=== PATIENT | female | born 1980 | race Caucasian/White ===

== ENCOUNTER 2016-06-03 13:57 | Emergency (ER) | payer BC, OTHER ==
[~2016-06-03] VITALS: Ht 160 cm; Wt 58.6 kg
[~2016-06-03 13:57] MED LIST: IBUP600T44 PO; PRENTAB26 PO
[2016-06-03 14:01] VITALS: TEMP 36.7; Ht 160 cm; Wt 58.6 kg
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
[2016-06-03] MEDS ORDERED: CIPROFLOXACIN 500 MG TAB PO STA (14:22)
[2016-06-03 14:25] LABS: PREG INTERNAL NEGATIVE QC NEG CLEAR BACKGROUND; PREG INTERNAL POSITIVE QC POS CONTROL LINE
[2016-06-03] MEDS ORDERED: CIPR-255 PO (14:27)
[2016-06-03 14:29] LABS: URINE APPEARANCE TURBID (CLEAR); URINE EPITHELIAL CELL AUTO >30 /lpf (0-5); URINE NITRITE POS (NEG); URINE PH 5.5 (4.5-7.5); URINE SPECIFIC GRAVITY 1.027 (1.000-1.030); UROBILINOGEN NEG (NEG)
[2016-06-03 14:30] LABS: MANUAL MICROSCOPIC REQUIRED? NO; REVIEW REQ? YES; URINE COLOR AMBER
[2016-06-03 14:31] LABS: URINE BILIRUBIN NEG (NEG)
[2016-06-03 14:41] LABS: URINE PATH CASTS 0-3 GRANULAR CASTS /lpf (0)
[2016-06-03 14:55] VITALS: BP 122/78; PULSE 72; O2SAT 97
--- NOTE | 2016-06-05 12:12 | Pharmacy Progress Note ---
ED Pharmacist Culture FollowUp Date of Service: Jun 05, 2016. Patient was sent home with a prescription for Ciprofloxacin 500mg PO BID x 10 days, which should cover the E coli growing from the patient's URINE culture. No action required.
== END 2016-06-03 14:56 | disposition home or self-care (01) ==
LOC: C.EDB 13:59
DX: N39.0 Urinary tract infection, site not specified (principal); R51 Headache; F17.210 Nicotine dependence, cigarettes, uncomplicated

== ENCOUNTER 2021-03-01 05:22 | Inpatient (IN) ==
[2021-03-01] MEDS ORDERED: KETOROLAC TROMETHAMINE 15 MG/ML VIAL IV STA (06:06)
[2021-03-01 06:19] LABS: Basophils # (auto) 0.01 K/uL (0-0.2); Basophils % (auto) 0.1 %; Eosinophils # (auto) 0.07 K/uL (0-0.5); Eosinophils % (auto) 0.4 %; Hematocrit (blood only) 43.1 % (37-47); Hemoglobin 14.7 g/dL (12.0-16.0); Immature Granulocytes # (auto) 0.07 K/uL (0.00-0.02); Immature Granulocytes % (auto) 0.4 %; Lymphocytes # (auto) 1.56 K/uL (1.2-3.4); Lymphocytes % (auto) 9.5 %; Mean Corpuscular Hemoglobin 32.8 pg (25-34); Mean Corpuscular Hgb Conc 34.1 g/dL (32-36); Mean Corpuscular Volume 96.2 fL (80-100); Mean Platelet Volume 9.9 fL (7.4-10.4); Monocytes # (auto) 0.78 K/uL (0.11-0.59); Monocytes % (auto) 4.7 %; Neutrophils # (auto) 13.97 K/uL (1.4-6.5); Neutrophils % (auto) 84.9 %; Platelet Count 363 K/uL (130-400); RDW Coefficient of Variation 14.3 % (11.5-14.5); RDW Standard Deviation 50.4 fL (36.4-46.3); Red Blood Count 4.48 M/uL (4.2-5.4); White Blood Count 16.46 K/uL (4.8-10.8)
[2021-03-01 06:38] LABS: Albumin Level 3.6 gm/dl (3.4-5.0); BUN Creatinine Ratio 16.8 (10-20); Calcium 8.9 mg/dl (8.5-10.1); Creatinine Clr Calc Pharmacy 107.3 ml/min; Est GFR (African American) 122.6 ml/min; Est GFR (Non-African American) 105.8 ml/min; Potassium 3.6 mmol/L (3.5-5.1)
[2021-03-01 06:46] LABS: Albumin Globulin Ratio 0.9 (0.9-2); Bilirubin,Total 0.5 mg/dl (0.2-1); Globulin 4.1 gm/dl (2.5-4.0); Total Protein 7.7 gm/dl (6.4-8.2)
[2021-03-01] MEDS ORDERED: ONDANSETRON INJ 2 MG/ML 2 ML VIAL IV STA (07:28)
[2021-03-01] MEDS ORDERED: MoRPHine SULFATE 4 MG/ML 1 ML CARP\\VIAL IV STA ×2 (07:28→09:48)
[2021-03-01] MEDS ORDERED: SODIUM CHLORIDE 0.9% 1000ML 1,000 ML IV ONE (07:28)
[2021-03-01] MEDS ORDERED: OPTIRAY 320 100ml IV ONE (08:21)
--- NOTE | 2021-03-01 08:37 | Emergency Department Note ---
History of Present Illness General Chief complaint: Abdominal Pain Stated complaint: CRAMPS,GOING INTO BACK SINCE YESTERDAY Time Seen by Provider: 03/01/21 06:49 History of Present Illness Maximum Pain Intensity: 6 40-year-old female presents to the ED with a chief complaint of abdominal pain. Her symptoms started at 4 AM this morning. She states that it feels like menstrual cramps in the upper abdomen. The patient states that she took some ibuprofen which helped a little. She also reported some back pain that started last night. It is in the low back. She has associated nausea and vomiting as well as decreased appetite. She does drink alcohol. She states that her last alcohol was yesterday. She drinks about 3 or 4 shots of liquor 4 times a week. Home Medications Medication Instructions Recorded Confirmed Type CIPROFLOXACIN HCL (CIPRO) 500 mg PO BID #20 tab 06/03/16 Rx Allergies Allergy/AdvReac Type Severity Reaction Status Date / Time pollen extracts Allergy Unknown SEASONAL-IT Verified 05/17/09 17:06 KATE Past Med/Surg History Social History Smoking Status: Current every day smoker Preferred Language: [place] Feels Safe at Home: Yes Review of Systems A total of 10 systems reviewed and were otherwise negative Physical Exam Vital Signs Vital Signs - 24 hr 03/01/21 05:26 03/01/21 07:05 03/01/21 08:00 Temperature 36.4 C L 36.6 C Temperature Source Temporal Artery Scan Oral Pulse Rate 84 Pulse Rate [Finger] 87 78 Pulse Rhythm [Finger] Regular Pulse Strength [Finger] Normal Respiratory Rate 18 20 20 Respiratory Effort / Characteristics Non-Labored Respiratory Depth Normal Normal Blood Pressure 140/79 Blood Pressure [Right Arm] 135/100 146/88 H Blood Pressure Mean 99 Blood Pressure Mean [Right Arm] 111 107 Blood Pressure Position [Right Arm] Sitting Sitting Pulse Oximetry 99 97 98 Oxygen Delivery Method Room Air Room Air Sepsis Recent Fever Within 48 Hours No Sepsis New/Unexplained Change in Mental Status N/A Sepsis Action Taken by Nursing No Action Required CONSTITUTIONAL/VITAL SIGNS: Reviewed / noted above. GENERAL: Non-toxic in appearance. INTEGUMENTARY: Warm, dry, and [place]. HEAD: Normocephalic. EYES: without scleral icterus or trauma. ENT/OROPHARYNX: clear and moist. LYMPHADENOPATHY/NECK: Is supple without lymphadenopathy or meningismus. RESPIRATORY: Clear to auscultation bilaterally. No increased work of breathing. CARDIOVASCULAR: Regular rate and rhythm. GI/ABDOMEN: Soft and tender in epigastric area. No organomegaly or pulsatile mass. EXTREMITIES: Warm and well perfused. BACK: No CVA tenderness. There is some tenderness to the musculature of the low back. NEUROLOGICAL: Intact without focal deficits. PSYCHIATRIC: normal affect. MUSCULOSKELETAL: Normally developed with good muscle tone. TRIAGE NURSING DOCUMENTATION REVIEWED. Course Administered Medications Discontinued Medications Sodium Chloride (Nss 1000ml) 1,000 mls @ 999 mls/hr IV .Q1H1M ONE Stop: 03/01/21 08:28 Last Admin: 03/01/21 08:06 Dose: 999 mls/hr Documented by: [id number] Ioversol (Optiray 320 100ml) 93 ml IV ONCE ONE Stop: 03/01/21 08:22 Last Admin: 03/01/21 08:21 Dose: 93 ml Documented by: [id number] Ketorolac Tromethamine (Ketorolac Tromethamine 15 Mg/Ml Vial) 10 mg IV NOW STA Stop: 03/01/21 06:07 Last Admin: 03/01/21 06:19 Dose: 10 mg Documented by: [id number] Morphine Sulfate (Morphine Sulfate 4 Mg/Ml 1 Ml Carp\Vial) 4 mg IV NOW STA Stop: 03/01/21 07:29 Last Admin: 03/01/21 08:05 Dose: 4 mg Documented by: [id number] Ondansetron HCl (Ondansetron Inj 2 Mg/Ml 2 Ml Vial) 4 mg IV NOW STA Stop: 03/01/21 07:29 Last Admin: 03/01/21 08:05 Dose: 4 mg Documented by: [id number] Medical Decision Making Differential Diagnosis Differential considered: pancreatitis, hepatitis, acute cholecystitis, AAA, UTI, pyelonephritis, kidney stones, appendicitis, diverticulitis, shingles, bowel obstruction, mesenteric ischemia, intussusception,hernia,, ovarian torsion , ruptured ovarian cyst,ectopic , . Medical Records Attestation: I reviewed the patient's medical records. Home Medications Current Medication List: was personally reviewed by me Laboratory Data Attestation: I reviewed the patient's lab results. Result diagrams: 03/01/21 05:59 03/01/21 05:59 Lab Results 03/01/21 03/01/21 Range/Units 05:59 05:59 WBC 16.46 H (4.8-10.8) K/uL RBC 4.48 (4.2-5.4) M/uL Hgb 14.7 (12.0-16.0) g/dL Hct 43.1 (37-47) % MCV 96.2 (80-100) fL MCH 32.8 (25-34) pg MCHC 34.1 (32-36) g/dL RDW Std Deviation 50.4 H (36.4-46.3) fL RDW Coeff of [place] 14.3 (11.5-14.5) % Plt Count 363 (130-400) K/uL MPV 9.9 (7.4-10.4) fL Immature Gran % (Auto) 0.4 % Neut % (Auto) 84.9 % Lymph % (Auto) 9.5 % [place] % (Auto) 4.7 % Eos % (Auto) 0.4 % Baso % (Auto) 0.1 % Neut # (Auto) 13.97 H (1.4-6.5) K/uL Lymph # (Auto) 1.56 (1.2-3.4) K/uL [place] # (Auto) 0.78 H (0.11-0.59) K/uL Eos # (Auto) 0.07 (0-0.5) K/uL Baso # (Auto) 0.01 (0-0.2) K/uL Immature Gran # (Auto) 0.07 H (0.00-0.02) K/uL Sodium 135 L (136-145) mmol/L Potassium 3.6 (3.5-5.1) mmol/L Chloride 104 (98-107) mmol/L Carbon Dioxide 23 (21-32) mmol/L Anion Gap 8.0 (3-11) BUN 12 (7-18) mg/dl Creatinine 0.71 (0.6-1.2) mg/dl Est Cr Clr Drug Dosing 107.3 ml/min Est GFR ( Amer) 122.6 ml/min Est GFR (Non-Af Amer) 105.8 ml/min BUN/Creatinine Ratio 16.8 (10-20) Glucose 144 H (70-99) mg/dl Calcium 8.9 (8.5-10.1) mg/dl Total Bilirubin 0.5 (0.2-1) mg/dl AST 29 (15-37) U/L ALT 69 (12-78) U/L Alkaline Phosphatase 161 H (45-117) U/L Total Protein 7.7 (6.4-8.2) gm/dl Albumin 3.6 (3.4-5.0) gm/dl Globulin 4.1 H (2.5-4.0) gm/dl Albumin/Globulin Ratio 0.9 (0.9-2) Lipase 6177 H (73-393) U/L Imaging Data Radiologist's Impression: Abdomen/Pelvis CT 03/01/21 07:11 CT SCAN OF THE ABDOMEN AND PELVIS WITH IV CONTRAST CLINICAL HISTORY: Generalized abdominal pain. Elevated lipase. COMPARISON STUDY: No priors. TECHNIQUE: Following the IV administration of 93 cc of Optiray 320, CT scan of the abdomen and pelvis is performed from the lung bases to the proximal femora. Images are reviewed in the axial, sagittal, and coronal planes. IV contrast was administered without complication. A dose lowering technique was utilized adhering to the principles of ALARA. CT DOSE: 621.21 mGy.cm FINDINGS: Lung bases: The heart is normal in size and without pericardial effusion. The lung bases are clear noting dependent atelectasis. Liver: The contrast-enhanced liver is enlarged, measuring 23.7 cm in length. The liver demonstrates diffusely diminished attenuation consistent with hepatic steatosis. There is no intrahepatic biliary ductal dilatation. The hepatic veins and portal veins are patent. Gallbladder: Unremarkable. Spleen: Normal in size and attenuation. Pancreas: The pancreas is enlarged and edematous, with significant peripan creatic inflammation and fluid. Findings are consistent with acute pancreatitis. The pancreatic duct is normal in caliber. The gland enhances throughout. There is a 1.8 x 1.3 cm fluid collection adjacent the pancreatic head seen on image #161. The splenic vein is patent.. Adrenal glands: Unremarkable. Kidneys: The contrast enhanced kidneys are normal in size and without hydronephrosis. The kidneys enhance symmetrically. Abdominal vasculature: The abdominal aorta is normal in course and caliber. Bowel: There is no bowel obstruction. There is wall thickening and edema of the duodenum with mucosal hyperemia. The cecum is located in the right upper quadrant. Imaged portions of the appendix are also unremarkable. Peritoneum: There is a band. Fluid, with fluid seen tracking inferiorly within the retroperitoneum. No intraperitoneal free air is identified. There is a large fat-containing umbilical hernia. Lymphadenopathy: Prominent peripancreatic lymph nodes measure up to 10 mm in short axis. These are likely reactive. Pelvic viscera: The bladder is normal as visualized. The uterus is normal as imaged noting an intrauterine device in place. There are bilateral ovarian follicles. A dominant follicle in the left ovary measures up to 2.6 cm. A small one of free fluid is seen in the cul-de-sac. There is fluid within a left inguinal hernia. Skeletal structures: No lytic or blastic lesions are seen. IMPRESSION: 1. Findings are consistent with severe acute pancreatitis as above. 2. The gland enhances throughout. 3. There is a 1.7 cm fluid collection adjacent the pancreatic head, likely representing a pseudocyst. 4. Wall thickening and edema of the duodenum is likely related to adjacent pancreatitis. 5. Hepatomegaly and hepatic steatosis. 6. A small volume of free fluid in the pelvis is nonspecific. 7. Additional findings as above. ACT 112: Negative or not required by law. Electronically signed by: Twin Oglesby M.D. 03/01/2021 8:50 AM MDM Narrative 40-year-old female with upper abdominal pain in the setting of recent alcohol consumption as well as regular alcohol consumption. Associated nausea and vomiting. She does have some epigastric abdominal pain. She does have some muscular lower back pain as well. Her vital signs are stable. White blood cell count is elevated 16.4. Lipase is 6177. Metabolic panel was unremarkable. CT scan of the abdomen pelvis is consistent with a severe acute pancreatitis. The patient was given IV fluids, IV morphine IV Zofran. She was given some IV Toradol as well. She will be seen by the hospitalist for further inpatient evaluation and care. Impression & Plan Pancreatitis Discharge Plan Visit Data Chief Complaint: Abdominal Pain Stated Complaint: CRAMPS,GOING INTO BACK SINCE YESTERDAY ED Provider: Ean Dawson Discharge Problem: Pancreatitis Patient Disposition: Being Evaluated by Hospitalist Forms Stand Alone Forms: [employer] [facility] [place] [employer] Prescriptions Prescriptions: No Action CIPROFLOXACIN HCL (CIPRO) 500 MG tablet 500 mg PO BID Qty: 20 RF: 0 Referrals Referrals: PCP,NO [Primary Care Provider] - Discharge Problem: Pancreatitis Qualifiers: Chronicity: acute Pancreatitis type: alcohol induced Acute pancreatitis complication: unspecified Qualified Code(s): K85.20 - Alcohol induced acute pancreatitis without necrosis or infection
--- NOTE | 2021-03-01 08:51 | CT Scan Report ---
CT SCAN OF THE ABDOMEN AND PELVIS WITH IV CONTRAST CLINICAL HISTORY: Generalized abdominal pain. Elevated lipase. COMPARISON STUDY: No priors. TECHNIQUE: Following the IV administration of 93 cc of Optiray 320, CT scan of the abdomen and pelvi s is performed from the lung bases to the proximal femora. Images are reviewed in the axial, sagittal , and coronal planes. IV contrast was administered without complication. A dose lowering technique wa s utilized adhering to the principles of ALARA. CT DOSE: 621.21 mGy.cm FINDINGS: Lung bases: The heart is normal in size and without pericardial effusion. The lung bases are clear no ting dependent atelectasis. Liver: The contrast-enhanced liver is enlarged, measuring 23.7 cm in length. The liver demonstrates d iffusely diminished attenuation consistent with hepatic steatosis. There is no intrahepatic biliary d uctal dilatation. The hepatic veins and portal veins are patent. Gallbladder: Unremarkable. Spleen: Normal in size and attenuation. Pancreas: The pancreas is enlarged and edematous, with significant peripancreatic inflammation and fl uid. Findings are consistent with acute pancreatitis. The pancreatic duct is normal in caliber. The g land enhances throughout. There is a 1.8 x 1.3 cm fluid collection adjacent the pancreatic head seen on image #161. The splenic vein is patent.. Adrenal glands: Unremarkable. Kidneys: The contrast enhanced kidneys are normal in size and without hydronephrosis. The kidneys enh ance symmetrically. Abdominal vasculature: The abdominal aorta is normal in course and caliber. Bowel: There is no bowel obstruction. There is wall thickening and edema of the duodenum with mucosal hyperemia. The cecum is located in the right upper quadrant. Imaged portions of the appendix are als o unremarkable. Peritoneum: There is a band. Fluid, with fluid seen tracking inferiorly within the retroperitoneum. No intraperitoneal free air is identified. There is a large fat-containing umbilical hernia. Lymphadenopathy: Prominent peripancreatic lymph nodes measure up to 10 mm in short axis. These are li thee reactive. Pelvic viscera: The bladder is normal as visualized. The uterus is normal as imaged noting an intraut erine device in place. There are bilateral ovarian follicles. A dominant follicle in the left ovary m easures up to 2.6 cm. A small one of free fluid is seen in the cul-de-sac. There is fluid within a le ft inguinal hernia. Skeletal structures: No lytic or blastic lesions are seen. IMPRESSION: 1. Findings are consistent with severe acute pancreatitis as above. 2. The gland enhances throughout. 3. There is a 1.7 cm fluid collection adjacent the pancreatic head, likely representing a pseudocyst. 4. Wall thickening and edema of the duodenum is likely related to adjacent pancreatitis. 5. Hepatomegaly and hepatic steatosis. 6. A small volume of free fluid in the pelvis is nonspecific. 7. Additional findings as above. ACT 112: Negative or not required by law. Electronically signed by: Twin Oglesby M.D. 03/01/2021 8:50 AM
--- NOTE | 2021-03-01 09:19 | Ultrasound Report ---
ULTRASOUND RIGHT UPPER QUADRANT ABDOMEN CLINICAL HISTORY: Elevated lipase. Pancreatitis. COMPARISON STUDY: Abdominal CT dated 03/01/2021. TECHNIQUE: Real-time, grayscale, and color flow sonography of the right upper quadrant of the abdomen was performed. Images are reviewed in the transverse and longitudinal planes. FINDINGS: Liver: The liver is enlarged and demonstrates heterogeneously increased echotexture consistent with h epatic steatosis. There is no intrahepatic biliary ductal dilatation. The main portal vein is patent. Gallbladder: The gallbladder is normal in appearance. No gallstones are identified. There is no gallb ladder wall thickening or pericholecystic fluid. A sonographic Mao's sign is reportedly absent. Th e common bile duct measures up to 0.4 cm in diameter. Pancreas: Visualized portions of the pancreatic head and body appear enlarged and heterogeneous. The splenic vein is patent. Right kidney: Survey images of the right kidney demonstrate normal size and echotexture. There is no hydronephrosis. Ascites: None. IMPRESSION: 1. The pancreas appears mildly enlarged and heterogeneous. This corresponds to findings of acute panc reatitis seen by CT. 2. No gallstones are identified. 3. Hepatomegaly and hepatic steatosis. ACT 112: Negative or not required by law. Electronically signed by: Twin Oglesby M.D. 03/01/2021 9:18 AM
--- NOTE | 2021-03-01 09:24 | Gastrointestinal Consultation ---
Date of Consultation March 01, 2021 Assessment & Plan (1) Pancreatitis: 40 year old female admitted w/ acute pancreatitis, concern for ETOH induced pancreatitis as she notes heavy ETOH use weekly, more over the holiday week. Lipase elevated, LFTs normal. imaging w/ severe acute pancreatitis and 1.7 cm fluid collection adjacent the pancreatic head NPO for bowel rest Ok for ice chips/sips LR 150-200mL/hr Antietmics PRN Pain control PRN Can hold on MRCP at this point in time as no biliary abnormality on ABD US or CT If any change in LFTs, please arrange MRCP ETOH cessation was recommended OP EUS was discussed Thank you for allowing us to participate in the care of this patient. Please call with any acute changes, questions or concerns. Please see addendum below with additional recommendation from my supervising physician. Supervising Physician Co-Signing Physician Notes Late entry: Patient was seen and examined on 03/01 with YOLANDA Gonzalez whose note reflects our findings and plan. ETOH pancreatitis. Continue with bowel rest, IVF, anti-emetics and pain meds. History of Present Illness Reason for Consultation: acute panc Requesting Physician: felipa Attending Physician: felipa History of Present Illness 40 year old female without PMH admitted w/ abd pain, imaging consistent for pancreatitis. Notes abrupt onset of symptoms Sunday AM. upper abd pain, severe, cramping. Associated with nausea/vomiting. Radiates to her back. No change in bowel habits. Sought ED as pain worsened this AM. On arrival, had bout of emesis, flecks of bright red blood. TB 0.5 AST 29 ALT 69 ALKP 161 Lipase 6177 ETOH 3-5 shots of liquor 3-5 times weekly More ETOH over holidays No new medications Denies marijuana or illicit street drugs ABD US 2020: The pancreas appears mildly enlarged and heterogeneous. This corresponds to findings of acute pancreatitis seen by CT. No gallstones are identified. Hepatomegaly and hepatic steatosis. CTAP 2020: Findings are consistent with severe acute pancreatitis as above.The gland enhances throughout. There is a 1.7 cm fluid collection adjacent the pancreatic head, likely representing a pseudocyst. Wall thickening and edema of the duodenum is likely related to adjacent pancreatitis.Hepatomegaly and hepatic steatosis. A small volume of free fluid in the pelvis is nonspecific. Allergies Allergy/AdvReac Type Severity Reaction Status Date / Time pollen extracts Allergy Unknown SEASONAL-IT Verified 03/01/21 09:21 KATE Home Medications Medication Instructions Recorded Confirmed Type No Known Home Medications 03/01/21 03/01/21 History Patient History Medical History (Updated 03/01/21 @ 10:41 by Silva Massey PA-C) Alcohol dependence Tobacco abuse Surgical History (Updated 03/01/21 @ 10:38 by Silva Massey PA-C) History of dental surgery Family History (Updated 03/01/21 @ 10:38 by Silva Massey PA-C) Father Hypertension Mother Rheumatoid arthritis Social History (Updated 03/01/21 @ 10:39 by Silva Massey PA-C) Smoking Status: Current every day smoker Tobacco Type: Cigarettes packs per day: 1; Years Smoked: 20; Hx Alcohol Use: Yes Alcohol type: hard liquor Alcohol type Comment: 4-5 shots; 4-5 x/wk Alcohol Intake Frequency: 4 or More x per/Week Hx Substance Use: Yes Last Used Substance Other:: "years ago" Preferred Language: Albanian Communication Ability: Effective Geological Sample Tester Required: No Beliefs That Will Affect Care: None marital status: Current Living Situation: Spouse Feels Safe at Home: Yes Assistive Devices: None Review of Systems Review of Systems: All systems reviewed & are unremarkable except as noted in HPI & below Physical Exam Constitutional: WD/WN, vitals as above Neck: trachea midline, no thyromegaly Respiratory: normal respiratory effort; no respiratory distress, no retractions and does not use accessory muscles Cardiovascular: Rate/Rhythm: regular rate and regular rhythm Gastrointestinal (Abdomen): normal bowel sounds, soft, nontender, no hepatosplenomegaly Skin: no rashes, warm and dry Results & Data ([facility]) Vital Signs (Past 12 Hours) Vital Signs Temp Pulse Pulse Resp BP BP Pulse Ox 03/01/21 08:00 78 20 146/88 H 98 03/01/21 07:05 36.6 C 87 20 135/100 97 03/01/21 05:26 36.4 C L 84 18 140/79 99 Laboratory Results 03/01/21 03/01/21 03/01/21 Range/Units 09:38 05:59 05:59 WBC 16.46 H (4.8-10.8) K/uL RBC 4.48 (4.2-5.4) M/uL Hgb 14.7 (12.0-16.0) g/dL Hct 43.1 (37-47) % MCV 96.2 (80-100) fL MCH 32.8 (25-34) pg MCHC 34.1 (32-36) g/dL RDW Std Deviation 50.4 H (36.4-46.3) fL RDW Coeff of [place] 14.3 (11.5-14.5) % Plt Count 363 (130-400) K/uL MPV 9.9 (7.4-10.4) fL Immature Gran % (Auto) 0.4 % Neut % (Auto) 84.9 % Lymph % (Auto) 9.5 % [place] % (Auto) 4.7 % Eos % (Auto) 0.4 % Baso % (Auto) 0.1 % Neut # (Auto) 13.97 H (1.4-6.5) K/uL Lymph # (Auto) 1.56 (1.2-3.4) K/uL [place] # (Auto) 0.78 H (0.11-0.59) K/uL Eos # (Auto) 0.07 (0-0.5) K/uL Baso # (Auto) 0.01 (0-0.2) K/uL Immature Gran # (Auto) 0.07 H (0.00-0.02) K/uL Sodium 135 L (136-145) mmol/L Potassium 3.6 (3.5-5.1) mmol/L Chloride 104 (98-107) mmol/L Carbon Dioxide 23 (21-32) mmol/L Anion Gap 8.0 (3-11) BUN 12 (7-18) mg/dl Creatinine 0.71 (0.6-1.2) mg/dl Est Cr Clr Drug Dosing 107.3 ml/min Est GFR ( Amer) 122.6 ml/min Est GFR (Non-Af Amer) 105.8 ml/min BUN/Creatinine Ratio 16.8 (10-20) Glucose 144 H (70-99) mg/dl Calcium 8.9 (8.5-10.1) mg/dl Total Bilirubin 0.5 (0.2-1) mg/dl AST 29 (15-37) U/L ALT 69 (12-78) U/L Alkaline Phosphatase 161 H (45-117) U/L Total Protein 7.7 (6.4-8.2) gm/dl Albumin 3.6 (3.4-5.0) gm/dl Globulin 4.1 H (2.5-4.0) gm/dl Albumin/Globulin Ratio 0.9 (0.9-2) Lipase 6177 H (73-393) U/L SARS-CoV-2, RNA, NAAT Pending (1) Pancreatitis Acute pancreatitis complication: unspecified Chronicity: acute Pancreatitis type: alcohol induced Qualified Code(s): K85.20 - Alcohol induced acute pancreatitis without necrosis or infection
[2021-03-01] MEDS ORDERED: LACTATED RINGER'S 1,000 ML IV SCH (09:30)
--- NOTE | 2021-03-01 10:34 | History & Physical Report ---
Date of Service March 01, 2021 Assessment & Plan (1) Acute pancreatitis: (2) Tobacco abuse: (3) Alcohol dependence: Plan: This is a 40-year-old female who has past medical history of known tobacco abuse and alcohol use who presents to ED secondary to abdominal pain x1 day. CT a/p: IMPRESSION:1. Findings are consistent with severe acute pancreatitis as above.2. The gland enhances throughout.3. There is a 1.7 cm fluid collection adjacent the pancreatic head, likely representing a pseudocyst.4. Wall thickening and edema of the duodenum is likely related to adjacent pancreatitis.5. Hepatomegaly and hepatic steatosis.6. A small volume of free flu id in the pelvis is nonspecific.7. Additional findings as above. GB US:The pancreas appears mildly enlarged and heterogeneous. This corresponds to findings of acute pancreatitis seen by CT.2. No gallstones are identified.3. Hepatomegaly and hepatic steatosis. Acute pancreatitis Admit to medical Consult gastroenterology-appreciate their recommendations, discussed at bedside with YOLANDA Camilo N.p.o., christian for sips and chips LR at 200 cc/h pain control anti emetics follow LFT, Lipase lipid panel in a.m. Tobacco abuse recommend cessation nicotine patch ordered ETOH dependence encourage cessation awss protocol, prn ativan Elevated fasting glucose obtain a1c in a.m. DVT ppx: Lovenox Dispo:med/surg PCP:None, will need to establish at discharge FULL CODE Pt was seen and examined in collaboration with Dr. Fraser, please see addendum History of Present Illness Chief Complaint: Abd pain x 1 day. Primary Care Provider: NO PCP This is a 40-year-old female who has past medical history of known tobacco abuse and alcohol use who presents to ED secondary to abdominal pain x1 day. Her is at bedside. She developed abdominal pain yesterday morning at approximately 3 AM. She felt like her abdominal pain was related to menstrual cramping. She tried [id number] ibuprofen, Aleve and Midol with minimal relief. Her symptoms persisted. She describes her abdominal pain in the epigastric region with occasional radiation to back. She does not feel like it is similar to prior menstrual cramping; however, she does have IUD and therefore period Is irregular. Her abdominal pain is constant, wax and wane in severity, made worse with lying flat, improved with sitting up, has never experienced in the past and describes as a deep ache. She does have significant history of alcohol use. Her and her to approximately 4-5 shots daily. This occurs 3-5 times a week. They have been all for the past 5 days and therefore have done the shots 5 days in a row. Her last drink was yesterday. She admits to periods of abstinence without difficulty with withdrawal. She does admit to nausea and one episode of vomiting. felt that bright red blood was present in vomit. She also complains of, "having a sinus infection." She complains of sinus congestion for the last several weeks. She has been taking oyrt-dul-mdendoh Lyly-Wacissa with minimal relief. She denies any fever, chills, sweats, lightheadedness, dizziness, chest pain, shortness of breath, dysuria, increased urgency frequency with urination, or hematochezia. She does complain of being more on the constipated side. Appetite is overall diminished. She does not follow with PCP. She denies any prior breast medical history including HTN, HLD, cancer or diabetes. She does not take any prescription medications. In ED patient remained hemodynamically stable. Lab work consistent with elevated lipase at 6177, WBC 16.4 6K, sodium 135, glucose 1.4. SARS-CoV-[address] a/p: IMPRESSION:1. Findings are consistent with severe acute pancreatitis as above.2. The gland enhances throughout.3. There is a 1.7 cm fluid collection ad jacent the pancreatic head, likely representing a pseudocyst.4. Wall thickening and edema of the duodenum is likely related to adjacent pancreatitis.5. Hepatomegaly and hepatic steatosis.6. A small volume of free fluid in the pelvis is nonspecific.7. Additional findings as above. GB US:The pancreas appears mildly enlarged and heterogeneous. This corresponds to findings of acute pancreatitis seen by CT.2. No gallstones are identified.3. Hepatomegaly and hepatic steatosis. In ED she received 1L of IVF, IV morphine and zofran. Allergies Allergy/AdvReac Type Severity Reaction Status Date / Time pollen extracts Allergy Unknown SEASONAL-IT Verified 03/01/21 09:21 KATE Home Medications Medication Instructions Recorded Confirmed Type No Known Home Medications 03/01/21 03/01/21 History Past Med/Surg History Medical History (Updated 03/01/21 @ 10:41 by Silva Massey PA-C) Alcohol dependence Tobacco abuse Surgical History (Updated 03/01/21 @ 10:38 by Silva Massey PA-C) History of dental surgery Family History (Updated 03/01/21 @ 10:38 by Silva Massey PA-C) Father Hypertension Mother Rheumatoid arthritis Social History (Updated 03/01/21 @ 10:39 by Silva Massey PA-C) Smoking Status: Current every day smoker Tobacco Type: Cigarettes packs per day: 1; Years Smoked: 20; Hx Alcohol Use: Yes Alcohol type: hard liquor Alcohol type Comment: 4-5 shots; 4-5 x/wk Alcohol Intake Frequency: 4 or More x per/Week Hx Substance Use: Yes Last Used Substance Other:: "years ago" Preferred Language: Sami Communication Ability: Effective Iron Erector Required: No Beliefs That Will Affect Care: None marital status: Current Living Situation: Spouse Feels Safe at Home: Yes Review of Systems Review of Systems: All systems reviewed & are unremarkable except as noted in HPI & below Physical Exam Physical Exam: Constitutional: WD/WN, acutely ill-appearing, vitals as above, NAD, sitting up in bed, pleasant, conversing easily Head: Normocephalic, Atraumatic Eyes: PERRL, conjunctivae normal, anicteric sclerae ENMT: external ear and nose normal, oropharynx normal Neck: trachea midline, no thyromegaly normal visual inspection Respiratory: normal respiratory effort, lungs clear to auscultation, no wheeze, rales, rhonchi. Normal insp/exp effort, no accessory muscle use Cardiovascular: RRR, no murmur, no edema Vessels: no JVD or carotid bruit Chest: normal inspection of chest Abdomen: normal bowel sounds, soft, tender to palpation in epigastrium, no hepatosplenomegaly Musculoskeletal: no cyanosis or clubbing, extremities motor strength 5/5 Skin: no rashes, warm and dry normal turgor Neurologic: PERRL, EOMI, accommodation nl, no face palsy, no dysarthria CN's II-XI intact bilaterally and moves all extremities Psychiatric: A+Ox3, euthymic affect Lymphatic: no cervical or axillary lymphadenopathy : deferred Results & Data Results & Data ([facility]) Vital Signs (Past 12 Hours) Vital Signs Temp Pulse Pulse Resp BP BP Pulse Ox 03/01/21 08:00 78 20 146/88 H 98 03/01/21 07:05 36.6 C 87 20 135/100 97 03/01/21 05:26 36.4 C L 84 18 140/79 99 Diagnostic Findings Abdomen/Pelvis CT 03/01/21 07:11 CT SCAN OF THE ABDOMEN AND PELVIS WITH IV CONTRAST CLINICAL HISTORY: Generalized abdominal pain. Elevated lipase. COMPARISON STUDY: No priors. TECHNIQUE: Following the IV administration of 93 cc of Optiray 320, CT scan of the abdomen and pelvis is performed from the lung bases to the proximal femora. Images are reviewed in the axial, sagittal, and coronal planes. IV contrast was administered without complication. A dose lowering technique was utilized adhering to the principles of ALARA. CT DOSE: 621.21 mGy.cm FINDINGS: Lung bases: The heart is normal in size and without pericardial effusion. The lung bases are clear noting dependent atelectasis. Liver: The contrast-enhanced liver is enlarged, measuring 23.7 cm in length. The liver demonstrates diffusely diminished attenuation consistent with hepatic steatosis. There is no intrahepatic biliary ductal dilatation. The hepatic veins and portal veins are patent. Gallbladder: Unremarkable. Spleen: Normal in size and attenuation. Pancreas: The pancreas is enlarged and edematous, with significant peripancreatic inflammation and fluid. Findings are consistent with acute pancreatitis. The pancreatic duct is normal in caliber. The gland enhances throughout. There is a 1.8 x 1.3 cm fluid collection adjacent the pancreatic head seen on image #161. The splenic vein is patent.. Adrenal glands: Unremarkable. Kidneys: The contrast enhanced kidneys are normal in size and without hydronephrosis. The kidneys enhance symmetrically. Abdominal vasculature: The abdominal aorta is normal in course and caliber. Bowel: There is no bowel obstruction. There is wall thickening and edema of the duodenum with mucosal hyperemia. The cecum is located in the right upper quadrant. Imaged portions of the appendix are also unremarkable. Peritoneum: There is a band. Fluid, with fluid seen tracking inferiorly within the retroperitoneum. No intraperitoneal free air is identified. There is a large fat-containing umbilical hernia. Lymphadenopathy: Prominent peripancreatic lymph nodes measure up to 10 mm in short axis. These are likely reactive. Pelvic viscera: The bladder is normal as visualized. The uterus is normal as imaged noting an intrauterine device in place. There are bilateral ovarian follicles. A dominant follicle in the left ovary measures up to 2.6 cm. A small one of free fluid is seen in the cul-de-sac. There is fluid within a left inguinal hernia. Skeletal structures: No lytic or blastic lesions are seen. IMPRESSION: 1. Findings are consistent with severe acute pancreatitis as above. 2. The gland enhances throughout. 3. There is a 1.7 cm fluid collection adjacent the pancreatic head, likely representing a pseudocyst. 4. Wall thickening and edema of the duodenum is likely related to adjacent pancreatitis. 5. Hepatomegaly and hepatic steatosis. 6. A small volume of free fluid in the pelvis is nonspecific. 7. Additional findings as above. ACT 112: Negative or not required by law. Electronically signed by: Twin Oglesby M.D. 03/01/2021 8:50 AM Gallbladder Ultrasound 03/01/21 07:11 ULTRASOUND RIGHT UPPER QUADRANT ABDOMEN CLINICAL HISTORY: Elevated lipase. Pancreatitis. COMPARISON STUDY: Abdominal CT dated 03/01/2021. TECHNIQUE: Real-time, grayscale, and color flow sonography of the right upper quadrant of the abdomen was performed. Images are reviewed in the transverse and longitudinal planes. FINDINGS: Liver: The liver is enlarged and demonstrates heterogeneously increased echotexture consistent with hepatic steatosis. There is no intrahepatic biliary ductal dilatation. The main portal vein is patent. Gallbladder: The gallbladder is normal in appearance. No gallstones are identified. There is no gallbladder wall thickening or pericholecystic fluid. A sonographic Mao's sign is reportedly absent. The common bile duct measures up to 0.4 cm in diameter. Pancreas: Visualized portions of the pancreatic head and body appear enlarged and heterogeneous. The splenic vein is patent. Right kidney: Survey images of the right kidney demonstrate normal size and echotexture. There is no hydronephrosis. Ascites: None. IMPRESSION: 1. The pancreas appears mildly enlarged and heterogeneous. This corresponds to findings of acute pancreatitis seen by CT. 2. No gallstones are identified. 3. Hepatomegaly and hepatic steatosis. ACT 112: Negative or not required by law. Electronically signed by: Twin Oglesby M.D. 03/01/2021 9:18 AM Medications Administered Medication List Lactated Ringer's (Lr) 1,000 mls @ 200 mls/hr IV .Q5H NAOMIE Stop: 03/31/21 09:29 Last Admin: 03/01/21 09:32 Dose: 200 mls/hr Documented by: [id number] Discontinued Medications Sodium Chloride (Nss 1000ml) 1,000 mls @ 999 mls/hr IV .Q1H1M ONE Stop: 03/01/21 08:28 Last Admin: 03/01/21 08:06 Dose: 999 mls/hr Documented by: [id number] Ioversol (Optiray 320 100ml) 93 ml IV ONCE ONE Stop: 03/01/21 08:22 Last Admin: 03/01/21 08:21 Dose: 93 ml Documented by: [id number] Ketorolac Tromethamine (Ketorolac Tromethamine 15 Mg/Ml Vial) 10 mg IV NOW STA Stop: 03/01/21 06:07 Last Admin: 03/01/21 06:19 Dose: 10 mg Documented by: [id number] Morphine Sulfate (Morphine Sulfate 4 Mg/Ml 1 Ml Carp\\Vial) 4 mg IV NOW STA Stop: 03/01/21 07:29 Last Admin: 03/01/21 08:05 Dose: 4 mg Documented by: [id number] Morphine Sulfate (Morphine Sulfate 4 Mg/Ml 1 Ml Carp\\Vial) 4 mg IV NOW STA Stop: 03/01/21 09:49 Last Admin: 03/01/21 10:13 Dose: 4 mg Documented by: [id number] Ondansetron HCl (Ondansetron Inj 2 Mg/Ml 2 Ml Vial) 4 mg IV NOW STA Stop: 03/01/21 07:29 Last Admin: 03/01/21 08:05 Dose: 4 mg Documented by: [id number] COVID-19 Results Results COVID-19 Adm Lab Results: RBC 4.48 M/uL (4.2-5.4) 03/01/21 WBC 16.46 K/uL (4.8-10.8) H 03/01/21 Hgb 14.7 g/dL (12.0-16.0) 03/01/21 Hct 43.1 % (37-47) 03/01/21 Plt Count 363 K/uL (130-400) 03/01/21 Neutrophils (%) (Auto) 84.9 % 03/01/21 Lymphocytes (%) (Auto) 9.5 % 03/01/21 Monocytes # (Auto) 0.78 K/uL (0.11-0.59) H 03/01/21 Eosinophils # (Auto) 0.07 K/uL (0-0.5) 03/01/21 Immature Granulocyte % (Auto) 0.4 % 03/01/21 Neutrophils # (Auto) 13.97 K/uL (1.4-6.5) H 03/01/21 Lymphocytes # (Auto) 1.56 K/uL (1.2-3.4) 03/01/21 Monocytes # (Auto) 0.78 K/uL (0.11-0.59) H 03/01/21 Eosinophils # (Auto) 0.07 K/uL (0-0.5) 03/01/21 Basophils # (Auto) 0.01 K/uL (0-0.2) 03/01/21 Immature Granulocyte # (Auto) 0.07 K/uL (0.00-0.02) H 03/01/21 Na 135 mmol/L (136-145) L 03/01/21 K 3.6 mmol/L (3.5-5.1) 03/01/21 Cl 104 mmol/L (98-107) 03/01/21 CO2 23 mmol/L (21-32) 03/01/21 Anion Gap 8.0 (3-11) 03/01/21 BUN 12 mg/dl (7-18) 03/01/21 Creatinine 0.71 mg/dl (0.6-1.2) 03/01/21 BUN/Creatinine Ratio 16.8 (10-20) 03/01/21 Glucose Level 144 mg/dl (70-99) H 03/01/21 Ca 8.9 mg/dl (8.5-10.1) 03/01/21 Total Bilirubin 0.5 mg/dl (0.2-1) 03/01/21 AST/SGOT 29 U/L (15-37) 03/01/21 ALT/SGPT 69 U/L (12-78) 03/01/21 Alkaline Phosphatase 161 U/L (45-117) H 03/01/21 Total Protein 7.7 gm/dl (6.4-8.2) 03/01/21 Albumin 3.6 gm/dl (3.4-5.0) 03/01/21 Globulin 4.1 gm/dl (2.5-4.0) H 03/01/21 Albumin/Globulin Ratio 0.9 (0.9-2) 03/01/21 SARS-CoV-2, RNA, NAAT NEGATIVE (NEGATIVE) 03/01/21 Code Status & VTE Plan Code Status FULL CODE VTE Prophylaxis Plan VTE Prophylaxis will be ordered: Yes Supervising Physician Co-Signing Physician Notes History and physical exam performed by me as detailed by Silva Massey PA-C. History notable for 40-year-old with alcohol use who presents with abdominal pain for 1 day. Patient reported drinking shots about 3-5 times a week but has been binging over the holiday weekend. Described abdominal pain as menstrual crampy in nature and referred to the back. Physical exam notable for abdominal tenderness especially in the epigastrium. Labs notable for WBC of 16, sodium of 135, lipase of 6177, alkaline phosphatase of [address] shows severe acute pancreatitis with 1.7 cm fluid collection present in the pseudocyst, edema of adjacent duodenum, hepatomegaly and hepatic steatosis. Gallbladder ultrasound did not show any gallstones. Acute pancreatitis Likely related to alcohol abuse. N.p.o. for now Continue IV fluids Pain control Agree with other plans as detailed by Silva Massey PA-C
[2021-03-01] MEDS ORDERED: ACETAMINOPHEN 1,000 MG/100 ML VIAL IV STA (12:49)
[2021-03-01] MEDS ORDERED: ACETAMINOPHEN 1000 MG/100 ML IV IV ONE (12:51)
[2021-03-01] MEDS ORDERED: LORazepam 1 MG/2 ML VIAL IV PRN (13:31)
[2021-03-01] MEDS ORDERED: ACETAMINOPHEN 1,000 MG/100 ML VIAL IV PRN (13:31)
[2021-03-01] MEDS: LACTATED RINGER'S 1,000 ML IV SCH ×3 (14:34→23:33)
[2021-03-01] MEDS: MoRPHine SULFATE 4 MG/ML 1 ML CARP\\VIAL IV PRN ×3 (14:34→23:33)
[2021-03-01] MEDS: NICOTINE 21 MG/24 HR TDSY TD SCH (16:05)
[2021-03-01] MEDS: ONDANSETRON INJ 2 MG/ML 2 ML VIAL IV PRN (18:02)
[2021-03-01] MEDS: ENOXAPARIN INJ 40 MG/0.4 ML SYR SQ SCH (20:07)
[2021-03-01 20:22] LABS: Appearance Urine Clear (Clear); Bacteria Urine Automated 1+ (Negative); Bilirubin Urine Negative (Negative); Blood Urine 1+ (Negative); Color Urine Dark Yellow; Epithelial Cell Urine Auto >30 /lpf (0-5); Glucose Urine UA Trace (Negative); Ketones Urine Negative (Negative); Leukocyte Esterase Urine Negative (Negative); Nitrite Urine Negative (Negative); Protein Urine 2+ (Negative); Specific Gravity Urine 1.039 (1.000-1.030); Urobilinogen Urine Negative (Negative); pH Urine 5.5 (4.5-7.5)
[2021-03-01] MEDS ORDERED: PROMETHAZINE HCL 12.5 MG in SODIUM CHLORIDE 0.9% 50 ML IV STA (21:34)
[2021-03-01 22:58] LABS: Pregnancy Test, Urine Negative (Negative)
[2021-03-02] MEDS: ONDANSETRON INJ 2 MG/ML 2 ML VIAL IV PRN ×3 (04:05→20:51)
[2021-03-02] MEDS: LACTATED RINGER'S 1,000 ML IV SCH ×4 (04:12→21:48)
[2021-03-02] MEDS: MoRPHine SULFATE 4 MG/ML 1 ML CARP\\VIAL IV PRN ×4 (04:54→20:50)
[2021-03-02 06:34] LABS: Basophils # (auto) 0.01 K/uL (0-0.2); Basophils % (auto) 0.1 %; Eosinophils # (auto) 0.09 K/uL (0-0.5); Eosinophils % (auto) 0.5 %; Hemoglobin 14.4 g/dL (12.0-16.0); Immature Granulocytes # (auto) 0.04 K/uL (0.00-0.02); Immature Granulocytes % (auto) 0.2 %; Lymphocytes # (auto) 0.95 K/uL (1.2-3.4); Lymphocytes % (auto) 5.2 %; Mean Corpuscular Hemoglobin 32.6 pg (25-34); Mean Corpuscular Hgb Conc 33.5 g/dL (32-36); Mean Corpuscular Volume 97.3 fL (80-100); Mean Platelet Volume 10.2 fL (7.4-10.4); Monocytes # (auto) 0.47 K/uL (0.11-0.59); Monocytes % (auto) 2.6 %; Neutrophils # (auto) 16.87 K/uL (1.4-6.5); Neutrophils % (auto) 91.4 %; Platelet Count 315 K/uL (130-400); RDW Coefficient of Variation 14.4 % (11.5-14.5); RDW Standard Deviation 51.6 fL (36.4-46.3); Red Blood Count 4.42 M/uL (4.2-5.4); White Blood Count 18.43 K/uL (4.8-10.8)
[2021-03-02 07:25] LABS: Estimated Average Glucose 126 mg/dl
[2021-03-02 08:25] LABS: Albumin Globulin Ratio 0.6 (0.9-2); Albumin Level 2.4 gm/dl (3.4-5.0); BUN Creatinine Ratio 17.2 (10-20); Bilirubin,Total 0.7 mg/dl (0.2-1); Calcium 7.7 mg/dl (8.5-10.1); Creatinine Clr Calc Pharmacy 149.4 ml/min; Est GFR (African American) 138.4 ml/min; Est GFR (Non-African American) 119.4 ml/min; Globulin 3.9 gm/dl (2.5-4.0); Total Protein 6.3 gm/dl (6.4-8.2)
[2021-03-02] MEDS ORDERED: PROMETHAZINE HCL 25 MG TAB PO ONE (08:39)
--- NOTE | 2021-03-02 09:20 | Gastroenterology Progress Note ---
Date of Service March 02, 2021 Assessment & Plan (1) Pancreatitis: Plan: 40 year old female admitted w/ acute pancreatitis, concern for ETOH induced pancreatitis as she notes heavy ETOH use weekly, more over the holiday week. Lipase elevated, LFTs normal. imaging w/ severe acute pancreatitis and 1.7 cm fluid collection adjacent the pancreatic head Ok for ice chips/sips If pain continues to improve, consider clear liquids for dinner LR 150-200mL/hr Antietmics PRN Pain control PRN Can hold on MRCP at this point in time as no biliary abnormality on ABD US or CT If any change in LFTs, please arrange MRCP ETOH cessation was recommended OP EUS was discussed Thank you for allowing us to participate in the care of this patient. Please call with any acute changes, questions or concerns. Please see addendum below with additional recommendation from my supervising physician. Admission and Anticipated Discharge Date Admission Date: March 01, 2021 Supervising Physician Co-Signing Physician Notes I have seen and examined the patient with YOLANDA Gonzalez whose note reflects our findings and plan. Slowly improving. ETOH cessation stressed. Continue with IVF hydration, Sip of clears ok today. PRN antiemetics and pain meds. Abd exam is benign Subjective Pt was seen and evaluated, chart reviewed. symptoms somewhat improved from yesterday pain is less severe, requiring less analgesia No BM but passing gas Review of Systems Review of Systems: All systems reviewed & are unremarkable except as noted in HPI & below Physical Exam Constitutional: WD/WN, vitals as above Neck: trachea midline, no thyromegaly Respiratory: normal respiratory effort, lungs clear to auscultation Gastrointestinal (Abdomen): normal bowel sounds, soft, nontender, no hepatosplenomegaly Skin: no rashes, warm and dry Results & Data ([facility]) Vital Signs (Past 12 Hours) Vital Signs Temp Pulse Resp BP Pulse Ox 03/02/21 04:06 36.7 C 100 H 16 137/93 93 03/02/21 00:00 36.8 C 98 H 21 133/90 96 03/01/21 21:36 36.8 C 92 H 18 149/94 H 94 Laboratory Results 03/02/21 03/02/21 03/02/21 Range/Units 09:00 06:11 06:11 WBC (4.8-10.8) K/uL RBC (4.2-5.4) M/uL Hgb (12.0-16.0) g/dL Hct (37-47) % MCV (80-100) fL MCH (25-34) pg MCHC (32-36) g/dL RDW Std Deviation (36.4-46.3) fL RDW Coeff of Yamile (11.5-14.5) % Plt Count (130-400) K/uL MPV (7.4-10.4) fL Immature Gran % (Auto) % Neut % (Auto) % Lymph % (Auto) % Kemper % (Auto) % Eos % (Auto) % Baso % (Auto) % Neut # (Auto) (1.4-6.5) K/uL Lymph # (Auto) (1.2-3.4) K/uL Kemper # (Auto) (0.11-0.59) K/uL Eos # (Auto) (0-0.5) K/uL Baso # (Auto) (0-0.2) K/uL Immature Gran # (Auto) (0.00-0.02) K/uL Sodium 132 L (136-145) mmol/L Potassium Pending (3.5-5.1) mmol/L Chloride 102 (98-107) mmol/L Carbon Dioxide 24 (21-32) mmol/L Anion Gap 6.0 (3-11) BUN 9 (7-18) mg/dl Creatinine 0.51 L (0.6-1.2) mg/dl Est Cr Clr Drug Dosing 149.4 ml/min Est GFR ( Amer) 138.4 ml/min Est GFR (Non-Af Amer) 119.4 ml/min BUN/Creatinine Ratio 17.2 (10-20) Glucose 136 H (70-99) mg/dl Estimat Average Glucose 126 mg/dl Hemoglobin A1c 6.0 H (4.5-5.6) % Calcium 7.7 L (8.5-10.1) mg/dl Total Bilirubin 0.7 (0.2-1) mg/dl AST Pending (15-37) U/L ALT 39 (12-78) U/L Alkaline Phosphatase 127 H (45-117) U/L Total Protein 6.3 L (6.4-8.2) gm/dl Albumin 2.4 L (3.4-5.0) gm/dl Globulin 3.9 (2.5-4.0) gm/dl Albumin/Globulin Ratio 0.6 L (0.9-2) Triglycerides 317 H (0-150) mg/dl Cholesterol 157 (0-200) mg/dl LDL Cholesterol, Calc 77 mg/dl VLDL Cholesterol, Calc 63 mg/dl HDL Cholesterol 17 mg/dl Cholesterol/HDL Ratio 9 Lipase 4385 H (73-393) U/L Urine Color Urine Appearance (Clear) Urine pH (4.5-7.5) Ur Specific Custer (1.000-1.030) Urine Protein (Negative) Urine Glucose (UA) (Negative) Urine Ketones (Negative) Urine Blood (Negative) Urine Nitrite (Negative) Urine Bilirubin (Negative) Urine Urobilinogen (Negative) Ur Leukocyte Esterase (Negative) Urine WBC (Auto) (0-5) /hpf Urine RBC (Auto) (0-4) /hpf U Hyaline Cast (Auto) (0-5) /lpf U Epithel Cells (Auto) (0-5) /lpf Urine Bacteria (Auto) (Negative) Urine Test (Negative) POC Ur Test SARS-CoV-2, RNA, NAAT (NEGATIVE) 03/02/21 03/01/21 03/01/21 Range/Units 06:11 Unknown Unknown WBC 18.43 H (4.8-10.8) K/uL RBC 4.42 (4.2-5.4) M/uL Hgb 14.4 (12.0-16.0) g/dL Hct 43.0 (37-47) % MCV 97.3 (80-100) fL MCH 32.6 (25-34) pg MCHC 33.5 (32-36) g/dL RDW Std Deviation 51.6 H (36.4-46.3) fL RDW Coeff of Yamile 14.4 (11.5-14.5) % Plt Count 315 (130-400) K/uL MPV 10.2 (7.4-10.4) fL Immature Gran % (Auto) 0.2 % Neut % (Auto) 91.4 % Lymph % (Auto) 5.2 % Kemper % (Auto) 2.6 % Eos % (Auto) 0.5 % Baso % (Auto) 0.1 % Neut # (Auto) 16.87 H (1.4-6.5) K/uL Lymph # (Auto) 0.95 L (1.2-3.4) K/uL Kemper # (Auto) 0.47 (0.11-0.59) K/uL Eos # (Auto) 0.09 (0-0.5) K/uL Baso # (Auto) 0.01 (0-0.2) K/uL Immature Gran # (Auto) 0.04 H (0.00-0.02) K/uL Sodium (136-145) mmol/L Potassium (3.5-5.1) mmol/L Chloride (98-107) mmol/L Carbon Dioxide (21-32) mmol/L Anion Gap (3-11) BUN (7-18) mg/dl Creatinine (0.6-1.2) mg/dl Est Cr Clr Drug Dosing ml/min Est GFR ( Amer) ml/min Est GFR (Non-Af Amer) ml/min BUN/Creatinine Ratio (10-20) Glucose (70-99) mg/dl Estimat Average Glucose mg/dl Hemoglobin A1c (4.5-5.6) % Calcium (8.5-10.1) mg/dl Total Bilirubin (0.2-1) mg/dl AST (15-37) U/L ALT (12-78) U/L Alkaline Phosphatase (45-117) U/L Total Protein (6.4-8.2) gm/dl Albumin (3.4-5.0) gm/dl Globulin (2.5-4.0) gm/dl Albumin/Globulin Ratio (0.9-2) Triglycerides (0-150) mg/dl Cholesterol (0-200) mg/dl LDL Cholesterol, Calc mg/dl VLDL Cholesterol, Calc mg/dl HDL Cholesterol mg/dl Cholesterol/HDL Ratio Lipase (73-393) U/L Urine Color Dark Yellow Urine Appearance Clear (Clear) Urine pH 5.5 (4.5-7.5) Ur Specific Custer 1.039 H (1.000-1.030) Urine Protein 2+ H (Negative) Urine Glucose (UA) Trace H (Negative) Urine Ketones Negative (Negative) Urine Blood 1+ H (Negative) Urine Nitrite Negative (Negative) Urine Bilirubin Negative (Negative) Urine Urobilinogen Negative (Negative) Ur Leukocyte Esterase Negative (Negative) Urine WBC (Auto) 1-5 (0-5) /hpf Urine RBC (Auto) 5-10 H (0-4) /hpf U Hyaline Cast (Auto) 1-5 (0-5) /lpf U Epithel Cells (Auto) >30 H (0-5) /lpf Urine Bacteria (Auto) 1+ H (Negative) Urine Test Negative (Negative) POC Ur Test SARS-CoV-2, RNA, NAAT (NEGATIVE) 03/01/21 03/01/21 Range/Units 21:41 09:38 WBC (4.8-10.8) K/uL RBC (4.2-5.4) M/uL Hgb (12.0-16.0) g/dL Hct (37-47) % MCV (80-100) fL MCH (25-34) pg MCHC (32-36) g/dL RDW Std Deviation (36.4-46.3) fL RDW Coeff of Yamile (11.5-14.5) % Plt Count (130-400) K/uL MPV (7.4-10.4) fL Immature Gran % (Auto) % Neut % (Auto) % Lymph % (Auto) % Kemper % (Auto) % Eos % (Auto) % Baso % (Auto) % Neut # (Auto) (1.4-6.5) K/uL Lymph # (Auto) (1.2-3.4) K/uL Kemper # (Auto) (0.11-0.59) K/uL Eos # (Auto) (0-0.5) K/uL Baso # (Auto) (0-0.2) K/uL Immature Gran # (Auto) (0.00-0.02) K/uL Sodium (136-145) mmol/L Potassium (3.5-5.1) mmol/L Chloride (98-107) mmol/L Carbon Dioxide (21-32) mmol/L Anion Gap (3-11) BUN (7-18) mg/dl Creatinine (0.6-1.2) mg/dl Est Cr Clr Drug Dosing ml/min Est GFR ( Amer) ml/min Est GFR (Non-Af Amer) ml/min BUN/Creatinine Ratio (10-20) Glucose (70-99) mg/dl Estimat Average Glucose mg/dl Hemoglobin A1c (4.5-5.6) % Calcium (8.5-10.1) mg/dl Total Bilirubin (0.2-1) mg/dl AST (15-37) U/L ALT (12-78) U/L Alkaline Phosphatase (45-117) U/L Total Protein (6.4-8.2) gm/dl Albumin (3.4-5.0) gm/dl Globulin (2.5-4.0) gm/dl Albumin/Globulin Ratio (0.9-2) Triglycerides (0-150) mg/dl Cholesterol (0-200) mg/dl LDL Cholesterol, Calc mg/dl VLDL Cholesterol, Calc mg/dl HDL Cholesterol mg/dl Cholesterol/HDL Ratio Lipase (73-393) U/L Urine Color Urine Appearance (Clear) Urine pH (4.5-7.5) Ur Specific Custer (1.000-1.030) Urine Protein (Negative) Urine Glucose (UA) (Negative) Urine Ketones (Negative) Urine Blood (Negative) Urine Nitrite (Negative) Urine Bilirubin (Negative) Urine Urobilinogen (Negative) Ur Leukocyte Esterase (Negative) Urine WBC (Auto) (0-5) /hpf Urine RBC (Auto) (0-4) /hpf U Hyaline Cast (Auto) (0-5) /lpf U Epithel Cells (Auto) (0-5) /lpf Urine Bacteria (Auto) (Negative) Urine Test (Negative) POC Ur Test Pending SARS-CoV-2, RNA, NAAT NEGATIVE (NEGATIVE) (1) Pancreatitis Acute pancreatitis complication: unspecified Chronicity: acute Pancreatitis type: alcohol induced Qualified Code(s): K85.20 - Alcohol induced acute pancreatitis without necrosis or infection
[2021-03-02] MEDS: NICOTINE 21 MG/24 HR TDSY TD SCH (09:21)
[2021-03-02 09:24] LABS: Potassium 3.6 mmol/L (3.5-5.1)
[2021-03-02] MEDS: FLUTICASONE PROPIONATE NA SPR 16 GM BTL SCH (10:41)
[2021-03-02] MEDS ORDERED: PROMETHAZINE HCL 25 MG TAB PO PRN (13:00)
--- NOTE | 2021-03-02 14:24 | Hospitalist Progress Note ---
Date of Service March 02, 2021 Assessment & Plan (1) Acute pancreatitis: Plan: Cont IVF resuscitation and pain medication at this time. Cont to observe NPO status with ice chips and small sips for comfort. She is feeling better but still quite painful. Will likely tolerate diet better in am. Per GI recommendations, hold off on MRCP as there is no biliary abnormality on abdominal us or CT scan. Alcohol cessation strongly recommended. Outpatient EUS will be recommended at discharge to set up with [facility] as outpatient. (2) Tobacco abuse: Plan: smoking cessation recommended. Declines nicotine supplementation at this time. (3) Alcohol dependence: Plan: Possibly may be experiencing some withdrawal symptoms with slightly increased heart rate, diaphoresis and malaise. She denies any anxiety, palpitations or tremulousness at this time. CIWA protocol recommended. (4) Obesity: Plan: weight loss recommended (5) DVT prophylaxis: Plan: Lovenox Full Code Dispo-to home when medically stable. Jazzmine Garcia DO [facility] Admission and Anticipated Discharge Date Admission Date: March 01, 2021 Subjective 40 yo F admitted for acute alcoholic pancreatitis. Symptoms of abdominal pain started on Sunday (4 days ago) and she has not eaten since that time. She is currently writihing in pain, diaphoretic and appears ill with continued pain in her epigastric area and her back. She is tolerating ice chips for comfort and doesn't report urinating very frequently despite fluids consistently running at 200cc/hr. afebrile denies chest pain, SOB denies urinary symptoms denies stool changes reports recent binge drinking -6-7 shots of liquor daily. Although reports doesn't do this during the week, she does drink at this pace on the weekend. Accelerated pace with the recent holiday. no vomiting present. Reports the morphine is helping. Review of Systems Review of Systems: All systems were reviewed and negative except as indicated in subjective above. Physical Exam Physical Exam: CONSTITUTIONAL: obese, vitals as above, generally ill-darshan earing and in mild distress unless she lays in one position. Uncomfortable for her to move around much in the bed. EYES: normal conjunctivae, no scleral icterus ENT: external ear and nose normal, MMM NECK: trachea midline RESPIRATORY: clear to auscultation bilaterally, no crackles, rales or wheezes, normal respiratory effort CARDIOVASCULAR: regular rate and rhythm, S1 and 2 heard without murmurs, gallops or rubs, no JVD, no peripheral edema CHEST: inspection of chest was normal GASTROINTESTINAL: soft, epigastric tenderness to palpation, ND, no guarding MUSCULOSKELETAL: strength 5/5 throughout, head is normocephalic and atraumatic SKIN: warm and dry, nicotine stains noted on fingers. NEUROLOGIC: No facial palsy, no dysarthria. CN 2-12 grossly intact, no sensory deficit, normal cognition, normal speech, no tremor PSYCHIATRIC: alert cooperative and oriented to person, place and time. Results & Data Results & Data ([facility]) Vital Signs (Past 12 Hours) Vital Signs Temp Pulse Resp BP Pulse Ox 03/02/21 04:06 36.7 C 100 H 16 137/93 93 Laboratory Results Short CBC 03/02/21 Range/Units 06:11 WBC 18.43 H (4.8-10.8) K/uL Hgb 14.4 (12.0-16.0) g/dL Hct 43.0 (37-47) % Plt Count 315 (130-400) K/uL BMP 03/02/21 03/02/21 06:11 09:00 Sodium 132 L Potassium 3.6 Chloride 102 Carbon Dioxide 24 BUN 9 Creatinine 0.51 L Glucose 136 H Calcium 7.7 L Liver Function 03/02/21 03/02/21 Range/Units 06:11 09:00 Total Bilirubin 0.7 (0.2-1) mg/dl AST 18 (15-37) U/L ALT 39 (12-78) U/L Alkaline Phosphatase 127 H (45-117) U/L Albumin 2.4 L (3.4-5.0) gm/dl Urine 03/01/21 Range/Units Unknown Urine Color Dark Yellow Urine Appearance Clear (Clear) Urine pH 5.5 (4.5-7.5) Ur Specific Randolph 1.039 H (1.000-1.030) Urine Protein 2+ H (Negative) Urine Glucose (UA) Trace H (Negative) Medications Administered Current Inpatient Medications Enoxaparin Sodium (Enoxaparin Inj 40 Mg/0.4 Ml Syr) 40 mg SQ Q24H NAOMIE Stop: 03/31/21 20:59 Last Admin: 03/01/21 20:07 Dose: 40 mg Documented by: Fluticasone Propionate (Fluticasone Propionate Na Spr 16 Gm Btl) 2 sprays NA DAILY [facility] Stop: 04/01/21 08:59 Last Admin: 03/02/21 10:41 Dose: Not Given Documented by: Lactated Ringer's (Lr) 1,000 mls @ 200 mls/hr IV .Q5H NAOMIE Stop: 03/31/21 13:30 Last Admin: 03/02/21 14:15 Dose: 200 mls/hr Documented by: Lorazepam (Ativan) 1 mg in 2 mls @ 2 mls/min IV ONE PRN; Protocol PRN Reason: EtoH Withdrawal AWSS 6-10 Stop: 03/31/21 13:30 Acetaminophen (Ofirmev) 1,000 mg in 100 mls @ 400 mls/hr IV Q8H PRN PRN Reason: moderate pain Stop: 03/04/21 13:30 Last Infusion: 03/01/21 23:01 Dose: Infused Documented by: Miscellaneous (Remove Nicoderm Patch) 1 ea N/A DAILY@[id number] [facility] Stop: 04/01/21 08:58 Last Admin: 03/02/21 09:21 Dose: Not Given Documented by: Morphine Sulfate (Morphine Sulfate 4 Mg/Ml 1 Ml Carp\Vial) 4 mg IV Q4H PRN PRN Reason: severe pain Stop: 03/15/21 13:30 Last Admin: 03/02/21 10:31 Dose: 4 mg Documented by: Nicotine (Nicotine 21 Mg/24 Hr Tdsy) 21 mg TD QAM [facility] Stop: 03/31/21 13:30 Last Admin: 03/02/21 09:21 Dose: Not Given Documented by: Ondansetron HCl (Ondansetron Inj 2 Mg/Ml 2 Ml Vial) 4 mg IV Q6H PRN PRN Reason: Nausea Stop: 03/31/21 13:30 Last Admin: 03/02/21 04:05 Dose: 4 mg Documented by: Promethazine HCl (Promethazine Hcl 25 Mg Tab) 25 mg PO Q6H PRN PRN Reason: Nausea And Vomiting Stop: 04/01/21 12:59
[2021-03-02] MEDS ORDERED: LORazepam 1 MG/2 ML VIAL IV PRN (15:55)
[2021-03-02] MEDS ORDERED: MULTI-VITAMIN INFUSION 10 ML, THIAMINE HCL 100 MG, FOLIC ACID 1 MG in SODIUM CHLORIDE 0... IV ONE (17:00)
[2021-03-02] MEDS: ENOXAPARIN INJ 40 MG/0.4 ML SYR SQ SCH (20:56)
[2021-03-03] MEDS: ONDANSETRON INJ 2 MG/ML 2 ML VIAL IV PRN ×3 (01:00→20:19)
[2021-03-03] MEDS: MoRPHine SULFATE 4 MG/ML 1 ML CARP\\VIAL IV PRN ×4 (01:14→20:17)
[2021-03-03] MEDS: LACTATED RINGER'S 1,000 ML IV SCH ×5 (02:26→22:22)
[2021-03-03 06:20] LABS: Hematocrit (blood only) 38.1 % (37-47); Hemoglobin 12.7 g/dL (12.0-16.0); Mean Corpuscular Hemoglobin 32.6 pg (25-34); Mean Corpuscular Hgb Conc 33.3 g/dL (32-36); Mean Corpuscular Volume 97.7 fL (80-100); Platelet Count 265 K/uL (130-400); RDW Coefficient of Variation 14.4 % (11.5-14.5); RDW Standard Deviation 51.3 fL (36.4-46.3); White Blood Count 17.22 K/uL (4.8-10.8)
[2021-03-03 07:00] LABS: BUN Creatinine Ratio 15.4 (10-20); Calcium 7.1 mg/dl (8.5-10.1); Creatinine Clr Calc Pharmacy 177.2 ml/min; Est GFR (African American) 146.4 ml/min; Est GFR (Non-African American) 126.3 ml/min; Magnesium 1.4 mg/dl (1.8-2.4); Potassium 3.3 mmol/L (3.5-5.1)
[2021-03-03 08:09] LABS: Albumin Globulin Ratio 0.6 (0.9-2); Bilirubin,Total 1.1 mg/dl (0.2-1); Globulin 3.6 gm/dl (2.5-4.0); Total Protein 5.6 gm/dl (6.4-8.2)
[2021-03-03 08:11] LABS: Phosphorus 1.5 mg/dl (2.5-4.9)
[2021-03-03] MEDS ORDERED: POTASSIUM CHLORIDE CRTAB 20 MEQ TABCR PO STA (08:42)
[2021-03-03] MEDS ORDERED: POTASSIUM PHOSPHATE IV SCH (09:00)
[2021-03-03] MEDS ORDERED: [UNRECOGNIZED DRUG - OTHER] IV SCH (09:00)
[2021-03-03] MEDS ORDERED: MAGNESIUM SULFATE IV SCH (09:00)
[2021-03-03] MEDS: NICOTINE 21 MG/24 HR TDSY TD SCH (09:15)
[2021-03-03] MEDS: FLUTICASONE PROPIONATE NA SPR 16 GM BTL SCH (09:33)
[2021-03-03] MEDS: FOLIC ACID 1 MG in SYRINGE 9.8 ML IV SCH (09:34)
[2021-03-03] MEDS: THIAMINE HCL 100 MG in SYRINGE 9 ML IV SCH (09:34)
--- NOTE | 2021-03-03 10:01 | Gastroenterology Progress Note ---
Date of Service March 03, 2021 Assessment & Plan (1) Pancreatitis: Plan: 40 year old female admitted w/ acute pancreatitis, concern for ETOH induced pancreatitis as she notes heavy ETOH use weekly, more over the holiday week. Lipase elevated, LFTs normal. imaging w/ severe acute pancreatitis and 1.7 cm fluid collection adjacent the pancreatic head Miralax 1 capful daily Ok for clear liquids LR 150-200mL/hr Antietmics PRN Pain control PRN Can hold on MRCP at this point in time as no biliary abnormality on ABD US or CT If any change in LFTs, please arrange MRCP ETOH cessation was recommended OP EUS was discussed Will sign off. Thank you for allowing us to participate in the care of this patient. Please call with any acute changes, questions or concerns. Please see addendum below with additional recommendation from my supervising physician. Admission and Anticipated Discharge Date Admission Date: March 01, 2021 Supervising Physician Co-Signing Physician Notes Late entry: Patient was seen and examine don 03/03 with YOLANDA Gonzalez whose note reflects our findings and plan. Subjective Pt was seen and evaluated, chart reviewed. Has had some abd pain return Needs to move her bowels she notes Denies nausea, vomiting. Review of Systems Review of Systems: All systems reviewed & are unremarkable except as noted in HPI & below Physical Exam Constitutional: WD/WN, vitals as above Neck: trachea midline, no thyromegaly Respiratory: normal respiratory effort Cardiovascular: Rate/Rhythm: regular rate and regular rhythm Gastrointestinal (Abdomen): Inspection/Auscultation: abdomen normal to inspection and + abdomen distended (mild) Percussion/Palpation: + abdomen tender and abdomen soft; no guarding and abdomen not rigid Skin: no rashes, warm and dry Results & Data ([facility]) Vital Signs (Past 12 Hours) Vital Signs Temp Pulse Resp BP Pulse Ox 03/03/21 07:49 36.4 C L 100 H 18 121/86 92 Laboratory Results 03/03/21 03/03/21 03/01/21 Range/Units 05:51 05:51 21:41 WBC 17.22 H (4.8-10.8) K/uL RBC 3.90 L (4.2-5.4) M/uL Hgb 12.7 (12.0-16.0) g/dL Hct 38.1 (37-47) % MCV 97.7 (80-100) fL MCH 32.6 (25-34) pg MCHC 33.3 (32-36) g/dL RDW Std Deviation 51.3 H (36.4-46.3) fL RDW Coeff of Yamile 14.4 (11.5-14.5) % Plt Count 265 (130-400) K/uL MPV 10.0 (7.4-10.4) fL Sodium 132 L (136-145) mmol/L Potassium 3.3 L (3.5-5.1) mmol/L Chloride 102 (98-107) mmol/L Carbon Dioxide 22 (21-32) mmol/L Anion Gap 8.0 (3-11) BUN 7 (7-18) mg/dl Creatinine 0.43 L (0.6-1.2) mg/dl Est Cr Clr Drug Dosing 177.2 ml/min Est GFR ( Amer) 146.4 ml/min Est GFR (Non-Af Amer) 126.3 ml/min BUN/Creatinine Ratio 15.4 (10-20) Glucose 117 H (70-99) mg/dl Calcium 7.1 L (8.5-10.1) mg/dl Phosphorus 1.5 L* (2.5-4.9) mg/dl Magnesium 1.4 L (1.8-2.4) mg/dl Total Bilirubin 1.1 H D (0.2-1) mg/dl AST 19 (15-37) U/L ALT 24 (12-78) U/L Alkaline Phosphatase 110 (45-117) U/L Total Protein 5.6 L (6.4-8.2) gm/dl Albumin 2.0 L (3.4-5.0) gm/dl Globulin 3.6 (2.5-4.0) gm/dl Albumin/Globulin Ratio 0.6 L (0.9-2) Lipase 1259 H (73-393) U/L POC Ur Test Cancelled (1) Pancreatitis Acute pancreatitis complication: unspecified Chronicity: acute Pancreatitis type: alcohol induced Qualified Code(s): K85.20 - Alcohol induced acute pancreatitis without necrosis or infection
--- NOTE | 2021-03-03 11:58 | Hospitalist Progress Note ---
Date of Service March 03, 2021 Assessment & Plan (1) Acute pancreatitis: Plan: This is a 40yo F with a PMH of alcohol dependence, tobacco use disorder who presents with acute alcoholic pancreatitis. Cont IVF resuscitation and pain medication at this time. Advanced to clear liquids today at lunch. Feeling better but still intermittently nauseated and bloated. Alcohol cessation strongly recommended . Per GI recommendations, continue LR at 15-200 ml/hr, Miralax 1 capful daily. Hold off on MRCP as there is no biliary abnormality on abdominal us or CT scan. Outpatient EUS will be recommended at discharge to set up with [facility] as outpatient (2) Hypokalemia: Plan: Replaced. Continue to monitor daily (3) Hypomagnesemia: Plan: Replaced. Continue to monitor daily (4) Tobacco abuse: Plan: Smoking cessation recommended. Declines nicotine supplementation at this time (5) Alcohol dependence: Plan: Possibly may be experiencing some withdrawal symptoms with slightly increased heart rate, diaphoresis and malaise. She denies any anxiety, palpitations or tremulousness at this time. CIWA protocol recommended (6) Obesity: Plan: Weight loss recommended (7) DVT prophylaxis: Plan: Lovenox Full Code Dispo-to home when medically stable Patient seen in collaboration with Dr. Garcia. Please see addendum. Admission and Anticipated Discharge Date Admission Date: March 01, 2021 Supervising Physician Co-Signing Physician Notes I have seen and examined the patient and have discussed the case with the provider above. I agree with the assessment and plan as stated. 40 yo F with alcoholic pancreatitis. Still with some abdominal discomfort, utilizing morphine. Physical exam as above. Cont plan as above. DO Jose Subjective Patient seen and examined in 379-1. Feeling okay this morning. Intermittent nausea overnight but no vomiting. Endorsing abdominal distention but no cathi pain. Feeling constipated. No diarrhea. No fever, chills, CP/SOB, dysuria. Okay to advance to clears for lunch. Review of Systems Review of Systems: All systems were reviewed and negative except as indicated in subjective above. Physical Exam Physical Exam: Gen: WD/WN, lying in bed, obese, A&Ox3 HEENT: Normocephalic, atraumatic, conjunctivae moist, sclerae anicteric, mucous membranes moist Lung: Clear to Auscultation bilaterally, no wheezes/rales/rhonchi Heart: Regular rate, regular rhythm, no murmurs, rubs, or gallops Abdomen: Soft, mildly distended but non-tender, +BS x 4 Extremities: no edema Skin: Warm, no rash Results & Data Results & Data ([facility]) Vital Signs (Past 12 Hours) Vital Signs Temp Pulse Resp BP Pulse Ox 03/03/21 07:49 36.4 C L 100 H 18 121/86 92 Laboratory Results Short CBC 03/03/21 Range/Units 05:51 WBC 17.22 H (4.8-10.8) K/uL Hgb 12.7 (12.0-16.0) g/dL Hct 38.1 (37-47) % Plt Count 265 (130-400) K/uL BMP 03/03/21 05:51 Sodium 132 L Potassium 3.3 L Chloride 102 Carbon Dioxide 22 BUN 7 Creatinine 0.43 L Glucose 117 H Calcium 7.1 L Liver Function 03/03/21 Range/Units 05:51 Total Bilirubin 1.1 H D (0.2-1) mg/dl AST 19 (15-37) U/L ALT 24 (12-78) U/L Alkaline Phosphatase 110 (45-117) U/L Albumin 2.0 L (3.4-5.0) gm/dl Diagnostic Findings Abdomen/Pelvis CT 03/01/21 07:11 CT SCAN OF THE ABDOMEN AND PELVIS WITH IV CONTRAST CLINICAL HISTORY: Generalized abdominal pain. Elevated lipase. COMPARISON STUDY: No priors. TECHNIQUE: Following the IV administration of 93 cc of Optiray 320, CT scan of the abdomen and pelvis is performed from the lung bases to the proximal femora. Images are reviewed in the axial, sagittal, and coronal planes. IV contrast was administered without complication. A dose lowering technique was utilized adhering to the principles of ALARA. CT DOSE: 621.21 mGy.cm FINDINGS: Lung bases: The heart is normal in size and without pericardial effusion. The lung bases are clear noting dependent atelectasis. Liver: The contrast-enhanced liver is enlarged, measuring 23.7 cm in length. The liver demonstrates diffusely diminished attenuation consistent with hepatic steatosis. There is no intrahepatic biliary ductal dilatation. The hepatic veins and portal veins are patent. Gallbladder: Unremarkable. Spleen: Normal in size and attenuation. Pancreas: The pancreas is enlarged and edematous, with significant peripancreatic inflammation and fluid. Findings are consistent with acute pancreatitis. The pancreatic duct is normal in caliber. The gland enhances throughout. There is a 1.8 x 1.3 cm fluid collection adjacent the pancreatic head seen on image #161. The splenic vein is patent.. Adrenal glands: Unremarkable. Kidneys: The contrast enhanced kidneys are normal in size and without hydronephrosis. The kidneys enhance symmetrically. Abdominal vasculature: The abdominal aorta is normal in course and caliber. Bowel: There is no bowel obstruction. There is wall thickening and edema of the duodenum with mucosal hyperemia. The cecum is located in the right upper quadrant. Imaged portions of the appendix are also unremarkable. Peritoneum: There is a band. Fluid, with fluid seen tracking inferiorly within the retroperitoneum. No intraperitoneal free air is identified. There is a large fat-containing umbilical hernia. Lymphadenopathy: Prominent peripancreatic lymph nodes measure up to 10 mm in short axis. These are likely reactive. Pelvic viscera: The bladder is normal as visualized. The uterus is normal as imaged noting an intrauterine device in place. There are bilateral ovarian follicles. A dominant follicle in the left ovary measures up to 2.6 cm. A small one of free fluid is seen in the cul-de-sac. There is fluid within a left inguinal hernia. Skeletal structures: No lytic or blastic lesions are seen. IMPRESSION: 1. Findings are consistent with severe acute pancreatitis as above. 2. The gland enhances throughout. 3. There is a 1.7 cm fluid collection adjacent the pancreatic head, likely representing a pseudocyst. 4. Wall thickening and edema of the duodenum is likely related to adjacent pancreatitis. 5. Hepatomegaly and hepatic steatosis. 6. A small volume of free fluid in the pelvis is nonspecific. 7. Additional findings as above. ACT 112: Negative or not required by law. Electronically signed by: Twin Oglesby M.D. 03/01/2021 8:50 AM Gallbladder Ultrasound 03/01/21 07:11 ULTRASOUND RIGHT UPPER QUADRANT ABDOMEN CLINICAL HISTORY: Elevated lipase. Pancreatitis. COMPARISON STUDY: Abdominal CT dated 03/01/2021. TECHNIQUE: Real-time, grayscale, and color flow sonography of the right upper quadrant of the abdomen was performed. Images are reviewed in the transverse and longitudinal planes. FINDINGS: Liver: The liver is enlarged and demonstrates heterogeneously increased echotexture consistent with hepatic steatosis. There is no intrahepatic biliary ductal dilatation. The main portal vein is patent. Gallbladder: The gallbladder is normal in appearance. No gallstones are identified. There is no gallbladder wall thickening or pericholecystic fluid. A sonographic Mao's sign is reportedly absent. The common bile duct measures up to 0.4 cm in diameter. Pancreas: Visualized portions of the pancreatic head and body appear enlarged and heterogeneous. The splenic vein is patent. Right kidney: Survey images of the right kidney demonstrate normal size and echotexture. There is no hydronephrosis. Ascites: None. IMPRESSION: 1. The pancreas appears mildly enlarged and heterogeneous. This corresponds to findings of acute pancreatitis seen by CT. 2. No gallstones are identified. 3. Hepatomegaly and hepatic steatosis. ACT 112: Negative or not required by law. Electronically signed by: Twin Oglesby M.D. 03/01/2021 9:18 AM
[2021-03-03] MEDS ORDERED: POLYETHYLENE (MIRALAX) 17 GM PACK PO ONE (15:30)
[2021-03-03] MEDS: ENOXAPARIN INJ 40 MG/0.4 ML SYR SQ SCH (20:16)
[2021-03-04] MEDS: LACTATED RINGER'S 1,000 ML IV SCH ×5 (02:18→20:11)
[2021-03-04] MEDS: MoRPHine SULFATE 4 MG/ML 1 ML CARP\\VIAL IV PRN ×3 (02:18→10:33)
[2021-03-04 07:35] LABS: BUN Creatinine Ratio 8.8 (10-20); Calcium 7.2 mg/dl (8.5-10.1); Creatinine Clr Calc Pharmacy 162.1 ml/min; Est GFR (African American) 142.2 ml/min; Est GFR (Non-African American) 122.7 ml/min; Magnesium 2.5 mg/dl (1.8-2.4); Potassium 3.5 mmol/L (3.5-5.1)
[2021-03-04 07:51] LABS: Phosphorus 1.6 mg/dl (2.5-4.9)
[2021-03-04] MEDS ORDERED: SODIUM PHOSPHATE 3 MMOL/1 ML INFUSION IV STA (09:25)
[2021-03-04] MEDS: NICOTINE 21 MG/24 HR TDSY TD SCH ×2 (09:25→12:39)
[2021-03-04] MEDS: POLYETHYLENE (MIRALAX) 17 GM PACK PO SCH (09:26)
[2021-03-04] MEDS: FLUTICASONE PROPIONATE NA SPR 16 GM BTL SCH (09:26)
[2021-03-04] MEDS: THIAMINE HCL 100 MG in SYRINGE 9 ML IV SCH (09:27)
[2021-03-04] MEDS: FOLIC ACID 1 MG in SYRINGE 9.8 ML IV SCH (09:27)
[2021-03-04] MEDS ORDERED: SODIUM PHOSPHATE 30 MMOL in SODIUM CHLORIDE 0.9% 500 ML IV ONE (09:45)
--- NOTE | 2021-03-04 11:46 | Hospitalist Progress Note ---
Date of Service March 04, 2021 Assessment & Plan (1) Acute pancreatitis: Plan: This is a 40yo F with a PMH of alcohol dependence, tobacco use disorder who presents with acute alcoholic pancreatitis. Continue IVF resuscitation and pain medication at this time. Advanced to clear liquids today at lunch. Feeling better but still intermittently nauseated and bloated. Alcohol cessation strongly recommended . Per GI recommendations, continue LR at 15-200 ml/hr, Miralax 1 capful daily. Hold off on MRCP as there is no biliary abnormality on abdominal us or CT scan. Outpatient EUS will be recommended at discharge to set up with [facility] as outpatient (2) Ileus: Plan: Continues to have abdominal bloating and nausea - KUB with air-filled loops of both large and small bowel without evidence for obstruction. Findings are most characteristic of an ileus Continue clears for now - if develops vomiting overnight, will need to keep NPO Narcotics discontinued - continue pain regimen with scheduled tylenol, PRN toradol (3) Hypokalemia: Plan: Replaced yesterday, wnl today. Daily BMP (4) Hypomagnesemia: Plan: Replaced yesterday, wnl today (5) Tobacco abuse: Plan: Smoking cessation recommended. Declines nicotine supplementation at this time (6) Hypophosphatemia: Plan: Replaced today. Repeat labs in AM (7) Alcohol dependence: Plan: Possibly may be experiencing some withdrawal symptoms with slightly increased heart rate, diaphoresis and malaise. She denies any anxiety, palpitations or tremulousness at this time. CIWA protocol recommended (8) Obesity: Plan: Weight loss recommended (9) DVT prophylaxis: Plan: Lovenox Full Code Dispo-to home when medically stable Patient seen in collaboration with Dr. Garcia. Please see addendum. Admission and Anticipated Discharge Date Admission Date: March 01, 2021 Supervising Physician Co-Signing Physician Notes I have seen and examined the patient and have discussed the case with the provider above. I agree with the assessment and plan as stated. 40 yo F with acute alcoholic pancreatitis. She is now having some diarrhea and continues to not feel well after starting clears. KUB reveals ileus and morphine has been stopped. Instructed to avoid narcotics. I agree with the physical exam as outlined above. Cont care plan including clears for now. Supportive care efforts PRN. Jose, DO Subjective Patient seen and examined in 379-1. Feeling okay this morning. Nausea is intermittent, no vomiting. Having bowel movements but still feels bloated with some abdominal discomfort. No cathi pain. No fever, chills, headache, CP/SOB, dysuria. Review of Systems Review of Systems: All systems were reviewed and negative except as indicated in subjective above. Physical Exam Physical Exam: Gen: WD/WN, lying in bed, obese, A&Ox3 HEENT: Normocephalic, atraumatic, conjunctivae moist, sclerae anicteric, mucous membranes moist Lung: Clear to Auscultation bilaterally, no wheezes/rales/rhonchi Heart: Regular rate, regular rhythm, no murmurs, rubs, or gallops Abdomen: Soft, mildly distended with mild diffuse TTP, +BS x 4 Extremities: no edema Skin: Warm, no rash Results & Data Results & Data ([facility]) Vital Signs (Past 12 Hours) Vital Signs Temp Pulse Resp BP Pulse Ox 03/04/21 07:11 37.3 C 92 H 17 101/66 91 Laboratory Results [facility] 03/04/21 06:29 Sodium 131 L Potassium 3.5 Chloride 103 Carbon Dioxide 24 BUN 4 L Creatinine 0.47 L Glucose 117 H Calcium 7.2 L Diagnostic Findings Abdomen/Pelvis CT 03/01/21 07:11 CT SCAN OF THE ABDOMEN AND PELVIS WITH IV CONTRAST CLINICAL HISTORY: Generalized abdominal pain. Elevated lipase. COMPARISON STUDY: No priors. TECHNIQUE: Following the IV administration of 93 cc of Optiray 320, CT scan of the abdomen and pelvis is performed from the lung bases to the proximal femora. Images are reviewed in the axial, sagittal, and coronal planes. IV contrast was administered without complication. A dose lowering technique was utilized adhering to the principles of ALARA. CT DOSE: 621.21 mGy.cm FINDINGS: Lung bases: The heart is normal in size and without pericardial effusion. The lung bases are clear noting dependent atelectasis. Liver: The contrast-enhanced liver is enlarged, measuring 23.7 cm in length. The liver demonstrates diffusely diminished attenuation consistent with hepatic steatosis. There is no intrahepatic biliary ductal dilatation. The hepatic veins and portal veins are patent. Gallbladder: Unremarkable. Spleen: Normal in size and attenuation. Pancreas: The pancreas is enlarged and edematous, with significant peripancreatic inflammation and fluid. Findings are consistent with acute pancreatitis. The pancreatic duct is normal in caliber. The gland enhances throughout. There is a 1.8 x 1.3 cm fluid collection adjacent the pancreatic head seen on image #161. The splenic vein is patent.. Adrenal glands: Unremarkable. Kidneys: The contrast enhanced kidneys are normal in size and without hydronephrosis. The kidneys enhance symmetrically. Abdominal vasculature: The abdominal aorta is normal in course and caliber. Bowel: There is no bowel obstruction. There is wall thickening and edema of the duodenum with mucosal hyperemia. The cecum is located in the right upper quadrant. Imaged portions of the appendix are also unremarkable. Peritoneum: There is a band. Fluid, with fluid seen tracking inferiorly within the retroperitoneum. No intraperitoneal free air is identified. There is a large fat-containing umbilical hernia. Lymphadenopathy: Prominent peripancreatic lymph nodes measure up to 10 mm in short axis. These are likely reactive. Pelvic viscera: The bladder is normal as visualized. The uterus is normal as imaged noting an intrauterine device in place. There are bilateral ovarian follicles. A dominant follicle in the left ovary measures up to 2.6 cm. A small one of free fluid is seen in the cul-de-sac. There is fluid within a left inguinal hernia. Skeletal structures: No lytic or blastic lesions are seen. IMPRESSION: 1. Findings are consistent with severe acute pancreatitis as above. 2. The gland enhances throughout. 3. There is a 1.7 cm fluid collection adjacent the pancreatic head, likely representing a pseudocyst. 4. Wall thickening and edema of the duodenum is likely related to adjacent pancreatitis. 5. Hepatomegaly and hepatic steatosis. 6. A small volume of free fluid in the pelvis is nonspecific. 7. Additional findings as above. ACT 112: Negative or not required by law. Electronically signed by: Twin Oglesby M.D. 03/01/2021 8:50 AM Gallbladder Ultrasound 03/01/21 07:11 ULTRASOUND RIGHT UPPER QUADRANT ABDOMEN CLINICAL HISTORY: Elevated lipase. Pancreatitis. COMPARISON STUDY: Abdominal CT dated 03/01/2021. TECHNIQUE: Real-time, grayscale, and color flow sonography of the right upper quadrant of the abdomen was performed. Images are reviewed in the transverse and longitudinal planes. FINDINGS: Liver: The liver is enlarged and demonstrates heterogeneously increased echotexture consistent with hepatic steatosis. There is no intrahepatic biliary ductal dilatation. The main portal vein is patent. Gallbladder: The gallbladder is normal in appearance. No gallstones are identified. There is no gallbladder wall thickening or pericholecystic fluid. A sonographic Mao's sign is reportedly absent. The common bile duct measures up to 0.4 cm in diameter. Pancreas: Visualized portions of the pancreatic head and body appear enlarged and heterogeneous. The splenic vein is patent. Right kidney: Survey images of the right kidney demonstrate normal size and echotexture. There is no hydronephrosis. Ascites: None. IMPRESSION: 1. The pancreas appears mildly enlarged and heterogeneous. This corresponds to findings of acute pancreatitis seen by CT. 2. No gallstones are identified. 3. Hepatomegaly and hepatic steatosis. ACT 112: Negative or not required by law. Electronically signed by: Twin Oglesby M.D. 03/01/2021 9:18 AM KUB X-Ray 03/04/21 10:51 XR KUB/Abdomen 1 view CLINICAL HISTORY: Abdominal pain and bloating. Nausea and vomiting. Reported pancreatitis. COMPARISON STUDY: No previous studies for comparison. TECHNIQUE: Single view of the abdomen. FINDINGS: There are air-filled loops of both large and small bowel without evidence for disproportionate dilatation or obstruction. The findings are most characteristic of an ileus. There is no evidence for organomegaly or gross intra-abdominal mass. No abnormal calcifications are seen along the course of the urinary tracts bilaterally. No acute osseous pathology. IMPRESSION: 1.Air-filled loops of both large and small bowel without evidence for disproportionate dilatation or obstruction. Findings are most characteristic of an ileus. ACT 112: Negative or not required by law. Electronically signed by: Wil Xiao M.D. 03/04/2021 12:19 PM
--- NOTE | 2021-03-04 12:21 | XRay Report ---
XR KUB/Abdomen 1 view CLINICAL HISTORY: Abdominal pain and bloating. Nausea and vomiting. Reported pancreatitis. COMPARISON STUDY: No previous studies for comparison. TECHNIQUE: Single view of the abdomen. FINDINGS: There are air-filled loops of both large and small bowel without evidence for disproportionate dilata tion or obstruction. The findings are most characteristic of an ileus. There is no evidence for organ omegaly or gross intra-abdominal mass. No abnormal calcifications are seen along the course of the ur inary tracts bilaterally. No acute osseous pathology. IMPRESSION: 1.Air-filled loops of both large and small bowel without evidence for disproportionate dilatation or obstruction. Findings are most characteristic of an ileus. ACT 112: Negative or not required by law. Electronically signed by: Wil Xiao M.D. 03/04/2021 12:19 PM
[2021-03-04] MEDS: ACETAMINOPHEN 1,000 MG/100 ML VIAL IV SCH ×2 (12:34→18:36)
[2021-03-04] MEDS: ENOXAPARIN INJ 40 MG/0.4 ML SYR SQ SCH (20:10)
[2021-03-05] MEDS: LACTATED RINGER'S 1,000 ML IV SCH ×2 (03:38→08:37)
[2021-03-05] MEDS: ACETAMINOPHEN 1,000 MG/100 ML VIAL IV SCH ×3 (03:40→18:44)
[2021-03-05] MEDS: ONDANSETRON INJ 2 MG/ML 2 ML VIAL IV PRN ×2 (03:58→23:40)
[2021-03-05] MEDS: KETOROLAC TROMETHAMINE 15 MG/ML VIAL IV PRN ×2 (06:16→16:32)
[2021-03-05 06:40] LABS: Hematocrit (blood only) 35.4 % (37-47); Hemoglobin 11.7 g/dL (12.0-16.0); Mean Corpuscular Hgb Conc 33.1 g/dL (32-36); Mean Corpuscular Volume 96.7 fL (80-100); Platelet Count 348 K/uL (130-400); RDW Standard Deviation 49.9 fL (36.4-46.3); Red Blood Count 3.66 M/uL (4.2-5.4); White Blood Count 15.06 K/uL (4.8-10.8)
[2021-03-05 07:07] LABS: BUN Creatinine Ratio 10.2 (10-20); Calcium 7.8 mg/dl (8.5-10.1); Creatinine Clr Calc Pharmacy 181.4 ml/min; Est GFR (African American) 147.6 ml/min; Est GFR (Non-African American) 127.3 ml/min; Potassium 3.2 mmol/L (3.5-5.1)
[2021-03-05] MEDS: THIAMINE HCL 100 MG in SYRINGE 9 ML IV SCH (08:40)
[2021-03-05] MEDS: FLUTICASONE PROPIONATE NA SPR 16 GM BTL SCH ×2 (08:40→08:43)
[2021-03-05] MEDS: FOLIC ACID 1 MG in SYRINGE 9.8 ML IV SCH (08:40)
[2021-03-05] MEDS: POLYETHYLENE (MIRALAX) 17 GM PACK PO SCH (08:40)
[2021-03-05] MEDS: NICOTINE 21 MG/24 HR TDSY TD SCH (08:40)
[2021-03-05] MEDS ORDERED: POTASSIUM PHOS 3 MMOL/1 ML INFUSION IV STA (10:18)
[2021-03-05] MEDS ORDERED: POTASSIUM CHLORIDE CRTAB 20 MEQ TABCR PO STA (10:18)
[2021-03-05] MEDS ORDERED: CALCIUM GLUCONATE 10% 1,000 MG in SODIUM CHLORIDE 0.9% 50 ML IV ONE (10:25)
--- NOTE | 2021-03-05 11:25 | XRay Report ---
KUB CLINICAL HISTORY: monitor ileus COMPARISON STUDY: CT of the abdomen and pelvis March 01, 2021. KUB March 04, 2021. FINDINGS: Intrauterine device is incidentally noted. There are small bilateral pleural effusions with bibasilar opacities. Although sensitivity is diminished on this supine exam, there is no evidence fo r free air. Multiple loops of mildly dilated small bowel measure up to 4.1 cm in caliber. This is sim ilar to prior exam. There is gas within portions of the colon as well. IMPRESSION: 1. Persistent mild small and large bowel dilatation. This favors an ileus. 2. Small bilateral pleural effusions with bibasilar opacities. ACT 112: Negative or not required by law. Electronically signed by: Frank Lee M.D. 03/05/2021 11:23 AM
[2021-03-05] MEDS ORDERED: POTASSIUM PHOSPHATE 21 MMOL in SODIUM CHLORIDE 0.9% 500 ML IV ONE (11:30)
--- NOTE | 2021-03-05 19:03 | Hospitalist Progress Note ---
Date of Service March 05, 2021 Assessment & Plan (1) Acute pancreatitis: Plan: IV fluids stopped overnight, diet advanced to solid food, ileus persists but patient feels better with resolution of nausea and improvement in bloating. Leukocytosis improved. Avoid narcotics. Outpatient EUS will be recommended at discharge to set up with [facility] as outpatient (2) Ileus: Plan: Persists on KUB however, now tolerating diet Narcotics discontinued - continue pain regimen with scheduled tylenol, PRN toradol (3) Hypokalemia: Plan: PO replacement given today. (4) Hypophosphatemia: Plan: Replaced today. Repeat labs in AM (5) Tobacco abuse: Plan: Smoking cessation recommended. Declines nicotine supplementation at this time (6) Alcohol dependence: Plan: No evidence of withdrawal, cut down or stop alcohol (7) Obesity: Plan: Weight loss recommended (8) DVT prophylaxis: Plan: Lovenox Full Code Dispo-to home when medically stable Jazzmine Garcia DO [facility] Hospitalist Admission and Anticipated Discharge Date Admission Date: March 01, 2021 Subjective 40-year-old female admitted for acute alcoholic pancreatitis IV fluids were stopped overnight and diarrhea has improved since that time. She reports an improvement in abdominal pain and has transition to solid food without much issue. She denies any nausea Afebrile Review of Systems Review of Systems: All systems were reviewed and negative except as indicated in subjective above. Physical Exam Physical Exam: CONSTITUTIONAL: obese, vitals as above, NAD EYES: normal conjunctivae, no scleral icterus ENT: external ear and nose normal, MMM NECK: trachea midline RESPIRATORY: clear to auscultation bilaterally, no crackles, rales or wheezes, normal respiratory effort CARDIOVASCULAR: regular rate and rhythm, S1 and 2 heard without murmurs, gallops or rubs, no JVD, no peripheral edema CHEST: inspection of chest was normal GASTROINTESTINAL: soft, general discomfort but no cathi tenderness, abdomen appears more soft today, ND, no guarding MUSCULOSKELETAL: strength 5/5 throughout, head is normocephalic and atraumatic SKIN: warm and dry, nicotine stains noted on fingers. NEUROLOGIC: No facial palsy, no dysarthria. CN 2-12 grossly intact, no sensory deficit, normal cognition, normal speech, no tremor PSYCHIATRIC: alert cooperative and oriented to person, place and time. Results & Data Results & Data ([place]) Vital Signs (Past 12 Hours) Vital Signs Temp Pulse Resp BP Pulse Ox 03/05/21 15:28 36.7 C 89 16 122/84 96 03/05/21 09:25 36.6 C 93 H 18 121/81 93 Laboratory Results Short CBC 03/05/21 Range/Units 05:59 WBC 15.06 H (4.8-10.8) K/uL Hgb 11.7 L (12.0-16.0) g/dL Hct 35.4 L (37-47) % Plt Count 348 (130-400) K/uL BMP 03/05/21 05:59 Sodium 133 L Potassium 3.2 L Chloride 104 Carbon Dioxide 23 BUN 4 L Creatinine 0.42 L Glucose 104 H Calcium 7.8 L Diagnostic Findings KUB X-Ray 03/05/21 10:19 KUB CLINICAL HISTORY: monitor ileus COMPARISON STUDY: CT of the abdomen and pelvis March 01, 2021. KUB March 04, 2021. FINDINGS: Intrauterine device is incidentally noted. There are small bilateral pleural effusions with bibasilar opacities. Although sensitivity is diminished on this supine exam, there is no evidence for free air. Multiple loops of mildly dilated small bowel measure up to 4.1 cm in caliber. This is similar to prior exam. There is gas within portions of the colon as well. IMPRESSION: 1. Persistent mild small and large bowel dilatation. This favors an ileus. 2. Small bilateral pleural effusions with bibasilar opacities. ACT 112: Negative or not required by law. Electronically signed by: Frank Lee M.D. 03/05/2021 11:23 AM Medications Administered Current Inpatient Medications Enoxaparin Sodium (Enoxaparin Inj 40 Mg/0.4 Ml Syr) 40 mg SQ Q24H [facility] Stop: 03/31/21 20:59 Last Admin: 03/04/21 20:10 Dose: 40 mg Documented by: Fluticasone Propionate (Fluticasone Propionate Na Spr 16 Gm Btl) 2 sprays NA DAILY [facility] Stop: 04/01/21 08:59 Last Admin: 03/05/21 08:43 Dose: Not Given Documented by: Lorazepam (Ativan) 1 mg in 2 mls @ 2 mls/min IV ONE PRN; Protocol PRN Reason: EtoH Withdrawal AWSS 6-10 Stop: 03/31/21 13:30 Lorazepam (Ativan) 1 mg in 2 mls @ 2 mls/min IV ONE PRN; Protocol PRN Reason: EtoH Withdrawal AWSS 6-10 Stop: 04/01/21 15:54 Thiamine HCl 100 mg/ Syringe 10 mls @ 2 mls/min IV Q24H [facility] Stop: 04/02/21 08:59 Last Admin: 03/05/21 08:40 Dose: 2 mls/min Documented by: Folic Acid 1 mg/ Syringe 10 mls @ 5 mls/min IV Q24H [facility] Stop: 04/02/21 08:59 Last Admin: 03/05/21 08:40 Dose: 5 mls/min Documented by: Acetaminophen (Ofirmev) 1,000 mg in 100 mls @ 400 mls/hr IV Q8H [facility] Stop: 03/07/21 10:59 Last Admin: 03/05/21 18:44 Dose: 400 mls/hr Documented by: Ketorolac Tromethamine (Ketorolac Tromethamine 15 Mg/Ml Vial) 15 mg IV Q6H PRN PRN Reason: Pain Stop: 03/09/21 10:48 Last Admin: 03/05/21 16:32 Dose: 15 mg Documented by: Miscellaneous (Remove Nicoderm Patch) 1 ea N/A DAILY@0859 [facility] Stop: 04/01/21 08:58 Last Admin: 03/05/21 08:40 Dose: 1 ea Documented by: Nicotine (Nicotine 21 Mg/24 Hr Tdsy) 21 mg TD QAM [facility] Stop: 03/31/21 13:30 Last Admin: 03/05/21 08:40 Dose: Not Given Documented by: Ondansetron HCl (Ondansetron Inj 2 Mg/Ml 2 Ml Vial) 4 mg IV Q6H PRN PRN Reason: Nausea Stop: 03/31/21 13:30 Last Admin: 03/05/21 03:58 Dose: 4 mg Documented by: Polyethylene Glycol (Polyethylene (Miralax) 17 Gm Pack) 17 gm PO DAILY [facility] Stop: 04/03/21 08:59 Last Admin: 03/05/21 08:40 Dose: Not Given Documented by: Promethazine HCl (Promethazine Hcl 25 Mg Tab) 25 mg PO Q6H PRN PRN Reason: Nausea And Vomiting Stop: 04/01/21 12:59 Last Admin: 03/05/21 06:15 Dose: 25 mg Documented by:
[2021-03-05] MEDS: ENOXAPARIN INJ 40 MG/0.4 ML SYR SQ SCH (20:47)
[2021-03-06] MEDS: ACETAMINOPHEN 1,000 MG/100 ML VIAL IV SCH ×2 (03:26→11:30)
[2021-03-06] MEDS: KETOROLAC TROMETHAMINE 15 MG/ML VIAL IV PRN ×2 (09:38→19:47)
[2021-03-06] MEDS: NICOTINE 21 MG/24 HR TDSY TD SCH (09:39)
[2021-03-06] MEDS: FOLIC ACID 1 MG in SYRINGE 9.8 ML IV SCH (09:39)
[2021-03-06] MEDS: THIAMINE HCL 100 MG in SYRINGE 9 ML IV SCH (09:39)
[2021-03-06] MEDS: FLUTICASONE PROPIONATE NA SPR 16 GM BTL SCH (09:39)
[2021-03-06] MEDS: POLYETHYLENE (MIRALAX) 17 GM PACK PO SCH (09:40)
[2021-03-06 10:49] LABS: Hematocrit (blood only) 34.4 % (37-47); Hemoglobin 11.7 g/dL (12.0-16.0); Mean Corpuscular Hemoglobin 32.6 pg (25-34); Mean Corpuscular Volume 95.8 fL (80-100); Mean Platelet Volume 9.9 fL (7.4-10.4); Platelet Count 414 K/uL (130-400); RDW Standard Deviation 49.6 fL (36.4-46.3); Red Blood Count 3.59 M/uL (4.2-5.4); White Blood Count 17.36 K/uL (4.8-10.8)
[2021-03-06 11:35] LABS: BUN Creatinine Ratio 11.2 (10-20); Calcium 8.2 mg/dl (8.5-10.1); Creatinine Clr Calc Pharmacy 162.1 ml/min; Est GFR (African American) 142.2 ml/min; Est GFR (Non-African American) 122.7 ml/min; Magnesium 1.9 mg/dl (1.8-2.4); Potassium 3.7 mmol/L (3.5-5.1)
[2021-03-06] MEDS ORDERED: ACETAMINOPHEN 325 MG TAB PO PRN (11:55)
[2021-03-06] MEDS: ENOXAPARIN INJ 40 MG/0.4 ML SYR SQ SCH (19:51)
--- NOTE | 2021-03-06 21:54 | Hospitalist Progress Note ---
Date of Service March 06, 2021 Assessment & Plan (1) Acute pancreatitis: Plan: Recent ileus likely secondary to morphine use however patient denies any abdominal pain or discomfort at this time. Apathetic to food but is tolerating solids. Leukocytosis persists however patient's remaining afebrile. Continue to monitor in hospital 1 more day. Outpatient EUS will be recommended at discharge to set up with [facility] as outpatient (2) Ileus: Plan: Persists on KUB however, now tolerating diet Narcotics discontinued - continue pain regimen with scheduled tylenol, PRN toradol (3) Hypophosphatemia: Plan: Replaced today. Repeat labs in AM (4) Tobacco abuse: Plan: Smoking cessation recommended. Declines nicotine supplementation at this time (5) Alcohol dependence: Plan: No evidence of withdrawal, cut down or stop alcohol (6) Obesity: Plan: Weight loss recommended (7) DVT prophylaxis: Plan: Lovenox Full Code Dispo-to home when medically stable, likely in am. Jazzmine Garcia DO [facility] Hospitalist Admission and Anticipated Discharge Date Admission Date: March 01, 2021 Subjective 40-year-old female admitted for acute alcoholic pancreatitis Diarrhea continues to improve but not quite fully resolved, denies abdominal pain but does not quite feel her appetite is fully there She is still tolerating solid foods and remains afebrile. Review of Systems Review of Systems: All systems were reviewed and negative except as indicated in subjective above. Physical Exam Physical Exam: CONSTITUTIONAL: obese, vitals as above, NAD EYES: normal conjunctivae, no scleral icterus ENT: external ear and nose normal, MMM NECK: trachea midline RESPIRATORY: clear to auscultation bilaterally, no crackles, rales or wheezes, normal respiratory effort CARDIOVASCULAR: regular rate and rhythm, S1 and 2 heard without murmurs, gallops or rubs, no JVD, no peripheral edema CHEST: inspection of chest was normal GASTROINTESTINAL: soft, NT, ND, no guarding MUSCULOSKELETAL: strength 5/5 throughout, head is normocephalic and atraumatic SKIN: warm and dry, nicotine stains noted on fingers. NEUROLOGIC: No facial palsy, no dysarthria. CN 2-12 grossly intact, no sensory deficit, normal cognition, normal speech, no tremor PSYCHIATRIC: alert cooperative and oriented to person, place and time. Results & Data Results & Data ([facility]) Vital Signs (Past 12 Hours) Vital Signs Temp Pulse Resp BP Pulse Ox 03/06/21 16:00 36.7 C 86 16 124/55 L 96 Laboratory Results Short CBC 03/06/21 Range/Units 10:30 WBC 17.36 H (4.8-10.8) K/uL Hgb 11.7 L (12.0-16.0) g/dL Hct 34.4 L (37-47) % Plt Count 414 H (130-400) K/uL BMP 03/06/21 10:30 Sodium 132 L Potassium 3.7 D Chloride 103 Carbon Dioxide 20 L BUN 5 L Creatinine 0.47 L Glucose 137 H Calcium 8.2 L Medications Administered Current Inpatient Medications Acetaminophen (Acetaminophen 325 Mg Tab) 650 mg PO Q4H PRN PRN Reason: pain/fever Stop: 04/05/21 11:54 Last Admin: 03/06/21 19:46 Dose: 650 mg Documented by: Enoxaparin Sodium (Enoxaparin Inj 40 Mg/0.4 Ml Syr) 40 mg SQ Q24H [facility] Stop: 03/31/21 20:59 Last Admin: 03/06/21 19:51 Dose: 40 mg Documented by: Fluticasone Propionate (Fluticasone Propionate Na Spr 16 Gm Btl) 2 sprays NA DAILY [facility] Stop: 04/01/21 08:59 Last Admin: 03/06/21 09:39 Dose: 2 sprays Documented by: Folic Acid (Folic Acid 1 Mg Tab) 1 mg PO QAM [facility] Stop: 04/06/21 08:59 Ketorolac Tromethamine (Ketorolac Tromethamine 15 Mg/Ml Vial) 15 mg IV Q6H PRN PRN Reason: Pain Stop: 03/09/21 10:48 Last Admin: 03/06/21 19:47 Dose: 15 mg Documented by: Miscellaneous (Remove Nicoderm Patch) 1 ea N/A DAILY@0859 [facility] Stop: 04/01/21 08:58 Last Admin: 03/06/21 09:40 Dose: 1 ea Documented by: Nicotine (Nicotine 21 Mg/24 Hr Tdsy) 21 mg TD QAM [facility] Stop: 03/31/21 13:30 Last Admin: 03/06/21 09:39 Dose: 21 mg Documented by: Ondansetron HCl (Ondansetron Inj 2 Mg/Ml 2 Ml Vial) 4 mg IV Q6H PRN PRN Reason: Nausea Stop: 03/31/21 13:30 Last Admin: 03/05/21 23:40 Dose: 4 mg Documented by: Polyethylene Glycol (Polyethylene (Miralax) 17 Gm Pack) 17 gm PO DAILY [facility] Stop: 04/03/21 08:59 Last Admin: 03/06/21 09:40 Dose: Not Given Documented by: Promethazine HCl (Promethazine Hcl 25 Mg Tab) 25 mg PO Q6H PRN PRN Reason: Nausea And Vomiting Stop: 04/01/21 12:59 Last Admin: 03/05/21 06:15 Dose: 25 mg Documented by: Thiamine HCl (Thiamine Hcl 100 Mg Tab) 100 mg PO QAM [facility] Stop: 04/06/21 08:59
[2021-03-06] MEDS: ONDANSETRON INJ 2 MG/ML 2 ML VIAL IV PRN (23:07)
[2021-03-06] MEDS: POT PHOSPHATE MONOBASIC W/ SOD TAB PO SCH (23:47)
[2021-03-07] MEDS: KETOROLAC TROMETHAMINE 15 MG/ML VIAL IV PRN ×2 (02:24→08:41)
[2021-03-07 08:11] LABS: Hematocrit (blood only) 33.7 % (37-47); Hemoglobin 11.2 g/dL (12.0-16.0); Mean Corpuscular Hemoglobin 31.9 pg (25-34); Mean Corpuscular Hgb Conc 33.2 g/dL (32-36); Mean Platelet Volume 9.9 fL (7.4-10.4); Platelet Count 440 K/uL (130-400); RDW Coefficient of Variation 14.4 % (11.5-14.5); RDW Standard Deviation 50.5 fL (36.4-46.3); Red Blood Count 3.51 M/uL (4.2-5.4); White Blood Count 16.82 K/uL (4.8-10.8)
[2021-03-07] MEDS: NICOTINE 21 MG/24 HR TDSY TD SCH (08:35)
[2021-03-07] MEDS: POT PHOSPHATE MONOBASIC W/ SOD TAB PO SCH (08:35)
[2021-03-07] MEDS: FLUTICASONE PROPIONATE NA SPR 16 GM BTL SCH (08:36)
[2021-03-07] MEDS: POLYETHYLENE (MIRALAX) 17 GM PACK PO SCH (08:36)
[2021-03-07 08:45] LABS: BUN Creatinine Ratio 14.6 (10-20); Calcium 7.7 mg/dl (8.5-10.1); Creatinine Clr Calc Pharmacy 177.2 ml/min; Est GFR (African American) 146.4 ml/min; Est GFR (Non-African American) 126.3 ml/min; Magnesium 1.9 mg/dl (1.8-2.4); Potassium 3.7 mmol/L (3.5-5.1)
[2021-03-07 08:53] LABS: Phosphorus 3.1 mg/dl (2.5-4.9)
[2021-03-07] MEDS ORDERED: FOLIC ACID 1 MG TAB PO SCH (09:00)
[2021-03-07] MEDS ORDERED: THIAMINE HCL 100 MG TAB PO SCH (09:00)
--- NOTE | 2021-03-07 09:50 | Discharge Summary ---
Date of Service March 07, 2021 Admission HPI Per Admitting Provider This is a 40-year-old female who has past medical history of known tobacco abuse and alcohol use who presents to ED secondary to abdominal pain x1 day. Her is at bedside. She developed abdominal pain yesterday morning at approximately 3 AM. She felt like her abdominal pain was related to menstrual cramping. She tried wmes-lvf-hihbhlf ibuprofen, Aleve and Midol with minimal relief. Her symptoms persisted. She describes her abdominal pain in the epigastric region with occasional radiation to back. She does not feel like it is similar to prior menstrual cramping; however, she does have IUD and therefore period Is irregular. Her abdominal pain is constant, wax and wane in severity, made worse with lying flat, improved with sitting up, has never experienced in the past and describes as a deep ache. She does have significant history of alcohol use. Her and her to approximately 4-5 shots daily. This occurs 3-5 times a week. They have been all for the past 5 days and therefore have done the shots 5 days in a row. Her last drink was yesterday. She admits to periods of abstinence without difficulty with withdrawal. She does admit to nausea and one episode of vomiting. felt that bright red blood was present in vomit. She also complains of, "having a sinus infection." She complains of sinus congestion for the last several weeks. She has been taking ivyj-vuv-ztzonvv [place] with minimal relief. She denies any fever, chills, sweats, lightheadedness, dizziness, chest pain, shortness of breath, dysuria, increased urgency frequency with urination, or hematochezia. She does complain of being more on the constipated side. Appetite is overall diminished. She does not follow with PCP. She denies any prior breast medical history including HTN, HLD, cancer or diabetes. She does not take any prescription medications. In ED patient remained hemodynamically stable. Lab work consistent with elevated lipase at 6177, WBC 16.4 6K, sodium 135, glucose 1.4. SARS-CoV-[address] a/p: IMPRESSION:1. Findings are consistent with severe acute pancreatitis as above.2. The gland enhances throughout.3. There is a 1.7 cm fluid collection adjacent the pancreatic head, likely representing a pseudocyst.4. Wall thickening and edema of the duodenum is likely related to adjacent pancreatitis.5. Hepatomegaly and hepatic steatosis.6. A small volume of free fluid in the pelvis is nonspecific.7. Additional findings as above. GB US:The pancreas appears mildly enlarged and heterogeneous. This corresponds to findings of acute pancreatitis seen by CT.2. No gallstones are identified.3. Hepatomegaly and hepatic steatosis. In ED she received 1L of IVF, IV morphine and zofran. Admission Exam Per Admitting Provider Constitutional: WD/WN, acutely ill-appearing, vitals as above, NAD, sitting up in bed, pleasant, conversing easily Head: Normocephalic, Atraumatic Eyes: PERRL, conjunctivae normal, anicteric sclerae ENMT: external ear and nose normal, oropharynx normal Neck: trachea midline, no thyromegaly normal visual inspection Respiratory: normal respiratory effort, lungs clear to auscultation, no wheeze, rales, rhonchi. Normal insp/exp effort, no accessory muscle use Cardiovascular: RRR, no murmur, no edema Vessels: no JVD or carotid bruit Chest: normal inspection of chest Abdomen: normal bowel sounds, soft, tender to palpation in epigastrium, no hepatosplenomegaly Musculoskeletal: no cyanosis or clubbing, extremities motor strength 5/5 Skin: no rashes, warm and dry normal turgor Neurologic: PERRL, EOMI, accommodation nl, no face palsy, no dysarthria CN's II-XI intact bilaterally and moves all extremities Psychiatric: A+Ox3, euthymic affect Lymphatic: no cervical or axillary lymphadenopathy : deferred Principal Diagnosis Acute Pancreatitis Ileus Low Phosphorus, Low Magnesium, Low Potassium High Triglycerides Pre Diabetes Hepatic Steatosis Discharge Exam Gen: WD/WN, female, obese, NAD, A&O x3 HEENT: Normocephalic, atraumatic, conjunctivae moist, sclerae anicteric, mucous membranes moist. Lung: Clear to Auscultation bilaterally, no wheezes/rales/rhonchi Heart: Regular rate, regular rhythm, no murmurs, rubs, or gallops Abdomen: Soft, NT, ND +BS x 4 Extremities: No edema Skin: Warm, no rash, negative turgor. Discharge Data Allergies Allergy/AdvReac Type Severity Reaction Status Date / Time pollen extracts Allergy Unknown SEASONAL-IT Verified 03/01/21 09:21 KATE Consultations 03/01/21 09:20 Consult Gastroenterology Routine 1) Pancreatitis: Plan: 40 year old female admitted w/ acute pancreatitis, concern for ETOH induced pancreatitis as she notes heavy ETOH use weekly, more over the holiday week. Lipase elevated, LFTs normal. imaging w/ severe acute pancreatitis and1.7 cm fluid collection adjacent the pancreatic head Miralax 1 capful daily Ok for clear liquids LR 150-200mL/hr Antietmics PRN Pain control PRN Can hold on MRCP at this point in time as no biliary abnormality on ABD US or CT If any change in LFTs, please arrange MRCP ETOH cessation was recommended OP EUS was discussed Ordered Studies Abdomen/Pelvis CT 03/01/21 07:11 CT SCAN OF THE ABDOMEN AND PELVIS WITH IV CONTRAST CLINICAL HISTORY: Generalized abdominal pain. Elevated lipase. COMPARISON STUDY: No priors. TECHNIQUE: Following the IV administration of 93 cc of Optiray 320, CT scan of the abdomen and pelvis is performed from the lung bases to the proximal femora. Images are reviewed in the axial, sagittal, and coronal planes. IV contrast was administered without complication. A dose lowering technique was utilized adhering to the principles of ALARA. CT DOSE: 621.21 mGy.cm FINDINGS: Lung bases: The heart is normal in size and without pericardial effusion. The lung bases are clear noting dependent atelectasis. Liver: The contrast-enhanced liver is enlarged, measuring 23.7 cm in length. The liver demonstrates diffusely diminished attenuation consistent with hepatic steatosis. There is no intrahepatic biliary ductal dilatation. The hepatic veins and portal veins are patent. Gallbladder: Unremarkable. Spleen: Normal in size and attenuation. Pancreas: The pancreas is enlarged and edematous, with significant peripancreatic inflammation and fluid. Findings are consistent with acute pancreatitis. The pancreatic duct is normal in caliber. The gland enhances throughout. There is a 1.8 x 1.3 cm fluid collection adjacent the pancreatic head seen on image #161. The splenic vein is patent.. Adrenal glands: Unremarkable. Kidneys: The contrast enhanced kidneys are normal in size and without hydronephrosis. The kidneys enhance symmetrically. Abdominal vasculature: The abdominal aorta is normal in course and caliber. Bowel: There is no bowel obstruction. There is wall thickening and edema of the duodenum with mucosal hyperemia. The cecum is located in the right upper quadra nt. Imaged portions of the appendix are also unremarkable. Peritoneum: There is a band. Fluid, with fluid seen tracking inferiorly within the retroperitoneum. No intraperitoneal free air is identified. There is a large fat-containing umbilical hernia. Lymphadenopathy: Prominent peripancreatic lymph nodes measure up to 10 mm in short axis. These are likely reactive. Pelvic viscera: The bladder is normal as visualized. The uterus is normal as imaged noting an intrauterine device in place. There are bilateral ovarian follicles. A dominant follicle in the left ovary measures up to 2.6 cm. A small one of free fluid is seen in the cul-de-sac. There is fluid within a left inguinal hernia. Skeletal structures: No lytic or blastic lesions are seen. IMPRESSION: 1. Findings are consistent with severe acute pancreatitis as above. 2. The gland enhances throughout. 3. There is a 1.7 cm fluid collection adjacent the pancreatic head, likely representing a pseudocyst. 4. Wall thickening and edema of the duodenum is likely related to adjacent pancreatitis. 5. Hepatomegaly and hepatic steatosis. 6. A small volume of free fluid in the pelvis is nonspecific. 7. Additional findings as above. ACT 112: Negative or not required by law. Electronically signed by: Twin Oglesby M.D. 03/01/2021 8:50 AM Gallbladder Ultrasound 03/01/21 07:11 ULTRASOUND RIGHT UPPER QUADRANT ABDOMEN CLINICAL HISTORY: Elevated lipase. Pancreatitis. COMPARISON STUDY: Abdominal CT dated 03/01/2021. TECHNIQUE: Real-time, grayscale, and color flow sonography of the right upper quadrant of the abdomen was performed. Images are reviewed in the transverse and longitudinal planes. FINDINGS: Liver: The liver is enlarged and demonstrates heterogeneously increased echotexture consistent with hepatic steatosis. There is no intrahepatic biliary ductal dilatation. The main portal vein is patent. Gallbladder: The gallbladder is normal in appearance. No gallstones are identified. There is no gallbladder wall thickening or pericholecystic fluid. A sonographic Mao's sign is reportedly absent. The common bile duct measures up to 0.4 cm in diameter. Pancreas: Visualized portions of the pancreatic head and body appear enlarged and heterogeneous. The splenic vein is patent. Right kidney: Survey images of the right kidney demonstrate normal size and echotexture. There is no hydronephrosis. Ascites: None. IMPRESSION: 1. The pancreas appears mildly enlarged and heterogeneous. This corresponds to findings of acute pancreatitis seen by CT. 2. No gallstones are identified. 3. Hepatomegaly and hepatic steatosis. ACT 112: Negative or not required by law. Electronically signed by: Twin Oglesby M.D. 03/01/2021 9:18 AM KUB X-Ray 03/04/21 10:51 XR KUB/Abdomen 1 view CLINICAL HISTORY: Abdominal pain and bloating. Nausea and vomiting. Reported pancreatitis. COMPARISON STUDY: No previous studies for comparison. TECHNIQUE: Single view of the abdomen. FINDINGS: There are air-filled loops of both large and small bowel without evidence for disproportionate dilatation or obstruction. The findings are most characteristic of an ileus. There is no evidence for organomegaly or gross intra-abdominal mass. No abnormal calcifications are seen along the course of the urinary tracts bilaterally. No acute osseous pathology. IMPRESSION: 1.Air-filled loops of both large and small bowel without evidence for disproportionate dilatation or obstruction. Findings are most characteristic of an ileus. ACT 112: Negative or not required by law. Electronically signed by: Wil Xiao M.D. 03/04/2021 12:19 PM KUB X-Ray 03/05/21 10:19 KUB CLINICAL HISTORY: monitor ileus COMPARISON STUDY: CT of the abdomen and pelvis March 01, 2021. KUB March 04, 2021. FINDINGS: Intrauterine device is incidentally noted. There are small bilateral pleural effusions with bibasilar opacities. Although sensitivity is diminished on this supine exam, there is no evidence for free air. Multiple loops of mildly dilated small bowel measure up to 4.1 cm in caliber. This is similar to prior exam. There is gas within portions of the colon as well. IMPRESSION: 1. Persistent mild small and large bowel dilatation. This favors an ileus. 2. Small bilateral pleural effusions with bibasilar opacities. ACT 112: Negative or not required by law. Electronically signed by: Frank Lee M.D. 03/05/2021 11:23 AM Diabetes Follow up A1C 6.0 Educated on diet and lifestyle modifications will need follow up a1c in 6 months. Hospital Course (1) Acute pancreatitis: This is a 40-year-old female who has known past medical history of tobacco abuse and alcohol use who initially presented to ED secondary to severe ab dominal pain. She was diagnosed with severe pancreatitis. CT abdomen pelvis were consistent with severe pancreatitis as well as a 1.7 cm fluid collection adjacent to the pancreatic head, likely representing a pseudocyst. Also noted on CT scan was hepatomegaly and hepatic steatosis. Her LFTs remained normalized and gallbladder ultrasound negative for obstructive etiology of pancreatitis. It was felt pancreatitis likely in setting of alcohol use. GI recommends outpatient follow-up for EUS. During her hospitalization she did have hypokalemia, hypophosphatemia and hypomagnesemia which were all replaced. On day of discharge her electrolytes were normal. On admission she did have elevated A1c at 6.0 and triglycerides at 317. Her cholesterol panel was otherwise normal. She did have leukocytosis which was felt to be due to underlying pancreatitis. Her hospital course was complicated by ileus likely secondary to narcotics. On day of discharge she was tolerating a regular diet. She was also passing flatus and her last bowel movement was on day of discharge and starting to form. Patient felt ready for discharge and abdominal pain had resolved. She was ambulating at baseline and her vital signs were stable. She is encouraged for tobacco and alcohol cessation. She was also counseled on weight loss secondary to elevated A1c and hepatic steatosis. (2) Ileus: (3) Hypophosphatemia: (4) Tobacco abuse: (5) Alcohol dependence: (6) Obesity: (7) DVT prophylaxis: Total Time Total Time Spent Total Time Spent (In Minutes): 35 minutes Total Time Includes: Examination of the Patient, Discharge Planning, Medication Reconciliation, Communication With Other Providers and Other Discharge Plan Discharge Items Patient Disposition: Home - Self-Care Reason For Visit: acute pancreatitis Discharge Diagnosis: Acute Pancreatitis Ileus Low Phosphorus, Low Magnesium, Low Potassium High Triglycerides Pre Diabetes Condition on Discharge: Good Activity: Resume your previous activity Driving/Machine Use: Resume 1 day after discharge Non-emergency contact: Primary Care Provider Call non-emergency contact if: you have any medication questions, your symptoms worsen, your pain is not controlled, your pain is worsening, your pain is unusual for you, your pain is concerning for you and your temperature is above 101 Follow-up/Referrals: Evette Velázquez PA-C [Outside Practitioners] - 03/08/21 3:00 pm (Date & Time 03/08/2021 3:00 PM Provider Evette Velázquez PA-C Department Family Medicine [facility] ) Leslee Arellano CRNP [Nurse Practitioner] - (Please follow up with GI in 6 weeks to discuss pancreatic cyst) Diet: Low Fat Addtl Attending Provider Instructions: SUMMARY OF TEST RESULTS: You were admitted to hospital due to acute pancreatitis. It is felt this was due to alcohol consumption. You were found to have abnormalities in your electrolytes including potassium, phosphorus and magnesium. These were supplemented. You were found to have an elevated a1c at 6.0 This puts you in the category of, "pre diabetes." You triglycerides were found to be elevated on admission. At CT scan of your abdomen confirmed pancreatitis. It also showed a cyst that will need to be followed up with Gastroenterology. PENDING TEST RESULTS: None RECOMMENDATIONS FOR FOLLOW-UP: Follow up with PCP as scheduled. Recommend follow up CBC ( lab work ) with PCP at follow up. Recommend follow up abdominal exam with PCP tomorrow due to swollen area in LUQ. Please follow up with Gastroenterology in 5 weeks regarding cyst on your pancreas. Please stop all alcohol consumption. Recommend cessation of tobacco use. Recommend weight loss and exercise once cleared by PCP to help reduce your A1C and prevent Diabetes Mellitus. Recommend daily multivitamin with folic acid replacement. OTHER INSTRUCTIONS: Seek medical attention if you have: * temperature above 101 * chest pain or trouble breathing * abdominal pain, nausea, vomiting * diarrhea, dark stools or bloody stools * any unanswered questions or concerns Call 911 if symptoms are severe. Please take good care of yourself. It has been a pleasure taking care of you. Please take care of yourself. If you have any questions regarding your recent hospitalization please contact [facility] and request [facility] @ [phone]. Silva Massey PA-C Pending Studies at Discharge: No Stand-Alone Forms: My [facility], Work/School Release, Smoking Cessation Medications and DC Order Prescriptions: No Action No Known Home Medications RF: 0 Discharge Orders: Discharge Order (Routine); Ordered 03/07/21 Ordered By: Silva Davis/Other Patient Handouts: A1C, 5 Steps for Eating Healthier, Understanding Pancreatitis Admission Data Admit Date/Time: 03/01/21 09:20 Attending Provider: Jazzmine Garcia Admit Provider: Re Fraser I. Primary Care Provider: PCP,NO Other Providers: Re Fraser I. ; Cortney Gutierrez ; Rajni Membreno ; Silva Massey
--- NOTE | 2021-03-07 11:04 | XRay Report ---
XR KUB/Abdomen 1 view CLINICAL HISTORY: follow up ileus. COMPARISON STUDY: 03/05/2021 TECHNIQUE: Single view of the abdomen. FINDINGS: Compared to the previous examination, there has been decompression of both large and small bowel with findings characteristic of resolution of ileus. There is no evidence for bowel loop dilatation or ob struction. There is no evidence for organomegaly or gross intra-abdominal mass. No abnormal calcifica tions are seen along the course of the urinary tracts bilaterally. No acute osseous pathology. There is again evidence for an IUD. IMPRESSION: 1.Interval decompression of both large and small bowel characteristic of resolution of ileus. No evid ence for obstruction. ACT 112: Negative or not required by law. Electronically signed by: Wil Xiao M.D. 03/07/2021 11:03 AM
== END 2021-03-07 12:58 | disposition home or self-care (01) | DRG 439 ==
LOC: ED 05:22 → EDINP 09:20 → SUATTDRO 09:20 → 3N 14:42

== ENCOUNTER 2021-04-20 19:58 | Inpatient (IN) ==
[2021-04-20] MEDS ORDERED: ONDANSETRON INJ 2 MG/ML 2 ML VIAL IV STA (20:11)
[2021-04-20] MEDS ORDERED: SODIUM CHLORIDE 0.9% 1000ML 1,000 ML IV ONE (20:11)
--- NOTE | 2021-04-20 20:13 | Emergency Department Note ---
Impression & Plan Pancreatitis, Abdominal pain, Leukocytosis ED Provider Note NAME: LUCY GARRETT AGE: 40 SEX: F : 1980 ARRIVES VIA: Walk-In INFORMANT: Patient ED PROVIDER(S): Van Anne DO CHIEF COMPLAINT: Abdominal pain HPI: Patient is a 40-year-old female who presents to ER for abdominal pain. Pain started this morning and is a 7 out of 10 sharp and stabbing. It is located in the right mid/upper quadrant. Associated with some mild nausea but no vomiting. Denies any dysuria, urgency, or frequency. Last menstrual period was a couple weeks ago. She does have a Mirena. No previous abdominal surgeries with the exception that she does have a pancreatic stent in place as just after [place] she was diagnosed with pancreatitis. She notes this feels similar but not nearly as bad. Does have a history of alcohol dependence. ROS: See above HPI for pertinent positives & negatives. A total of 10 systems reviewed and were otherwise negative. PAST MEDICAL HISTORY:See Below PAST SURGICAL HISTORY:See Below FAMILY HISTORY:See Below SOCIAL HISTORY:See Below HOME MEDICATIONS:See Below ALLERGIES:See Below VITALS:See Below PHYSICAL EXAMINATION: GENERAL: Sitting up in bed, alert, well appearing, well nourished, no distress, non-toxic EYE EXAM: normal conjunctiva. PERRL and EOM's grossly intact. OROPHARYNX: no exudate, no erythema, lips, buccal mucosa, and tongue normal and mucous membranes are moist NECK: supple, no nuchal rigidity, no adenopathy, non-tender LUNGS: Clear to auscultation. Normal chest wall mechanics HEART: no murmurs, S1 normal and S2 normal ABDOMEN: abdomen soft, tender palpation right upper quadrant, normo-active bowel sounds, no masses, no rebound or guarding. UPPER EXTREMITIES: upper extremities are grossly normal. LOWER EXTREMITIES: No pitting edema. NEURO EXAM: Normal sensorium, cranial nerves II-XII grossly intact, normal speech, no gross weakness of arms, no gross weakness of legs. MEDICAL DECISION MAKING: Patient is a 40-year-old female who presents ER for periumbilical/right upper q uadrant abdominal pain. IV was established but however is obtained. Labs show mild leukocytosis of 14,000. No significant anemia. INR unremarkable. BMP along with LFTs bilirubin was unremarkable. Lipase is elevated at 1300. UA was clean. CT abdomen pelvis shows pancreatitis with an ileus. Patient was given IV fluids multiple doses of morphine and Zofran. She is updated bedside. Discussed with the hospitalist Dr. Aburto and admitted for further work-up. Triage Nursing notes reviewed. Limited review of prior medical records performed Vital Signs: reviewed and remarkable for no significant abnormalities Differential diagnosis: Differential diagnoses includes but is not limited to gastritis, peptic ulcer disease, GERD, gallbladder disease, pancreatitis, small bowel obstruction, acute coronary syndrome, pericarditis, ischemic bowel, irritable bowel disease, irritable bowel syndrome, appendicitis, diverticulitis, malignancy, hernia, urinary tract infection, torsion, perforation, trauma, infectious. ER treatment provided: See below Diagnostics interpreted by me: Cardiac Monitoring: An order was placed for continuous cardiac monitoring. The monitor shows a rate of 82 with sinus rhythm. Laboratory studies: As stated above and show below. Imaging studies: CT abdomen pelvis showed pancreatitis and ileus Consultation(s): Discussed with Dr. Meyer. Further evaluation Procedures: none Critical Care: None Past Med/Surg History Medical History (Updated 04/21/21 @ 00:54 by Van Anne DO) Acute pancreatitis Alcohol dependence Pancreatitis Tobacco abuse Surgical History (Updated 03/01/21 @ 10:38 by Silva Massey PA-C) History of dental surgery Family History (Updated 03/01/21 @ 10:38 by Silva Massey PA-C) Father Hypertension Mother Rheumatoid arthritis Social History (Updated 03/01/21 @ 10:39 by Sliva Massey PA-C) Smoking Status: Current every day smoker Tobacco Type: Cigarettes packs per day: 1; Years Smoked: 20; Hx Alcohol Use: Yes Alcohol type: hard liquor Alcohol type Comment: 4-5 shots; 4-5 x/wk Alcohol Intake Frequency: 4 or More x per/Week Hx Substance Use: Yes Last Used Substance Other:: "years ago" Preferred Language: Greek Communication Ability: Effective Spinning Frame Fixer Required: No Beliefs That Will Affect Care: None marital status: Current Living Situation: Spouse Feels Safe at Home: Yes Assistive Devices: Glasses Allergies Allergies Allergy/AdvReac Type Severity Reaction Status Date / Time pollen extracts Allergy Unknown SEASONAL-IT Verified 04/20/21 20:30 KATE Home Meds Home Medications Medication Instructions Recorded Confirmed levonorgestrel 20 mcg/24 hours (7 1 insert INTRAUTERINE CONTINOUS 04/20/21 04/20/21 yrs) 52 mg intrauterine device (Mirena) warfarin 5 mg tablet 5 mg PO DAILY 04/20/21 04/20/21 Results & Data (ED) Vital Signs Vital Signs - 24 hr 04/20/21 20:05 04/20/21 20:23 04/20/21 21:49 Temperature 36.8 C Temperature Source Temporal Artery Scan Pulse Rate 97 H 83 Pulse Rate [Finger] 90 Respiratory Rate 18 20 16 Respiratory Effort / Characteristics Non-Labored Spontaneous Respiratory Depth Normal Respiratory Pattern Regular Blood Pressure 103/72 107/64 Blood Pressure [Right Arm] 120/71 Blood Pressure Mean 82 78 Blood Pressure Mean [Right Arm] 87 Blood Pressure Position Sitting Pulse Oximetry 98 97 99 Oxygen Delivery Method Room Air Room Air Sepsis Recent Fever Within 48 Hours No Sepsis New/Unexplained Change in Mental Status No Sepsis Action Taken by Nursing No Action Required 04/20/21 22:00 04/20/21 22:30 04/20/21 23:00 Temperature Temperature Source Pulse Rate 82 84 88 Pulse Rate [Finger] Respiratory Rate 22 18 20 Respiratory Effort / Characteristics Respiratory Depth Respiratory Pattern Blood Pressure 99/59 L 104/71 104/69 Blood Pressure [Right Arm] Blood Pressure Mean 72 82 80 Blood Pressure Mean [Right Arm] Blood Pressure Position Pulse Oximetry 99 98 98 Oxygen Delivery Method Sepsis Recent Fever Within 48 Hours Sepsis New/Unexplained Change in Mental Status Sepsis Action Taken by Nursing 04/20/21 23:30 04/21/21 00:00 04/21/21 00:30 Temperature Temperature Source Pulse Rate 86 83 87 Pulse Rate [Finger] Respiratory Rate 20 20 16 Respiratory Effort / Characteristics Respiratory Depth Respiratory Pattern Blood Pressure 105/62 96/61 L 101/67 Blood Pressure [Right Arm] Blood Pressure Mean 76 72 78 Blood Pressure Mean [Right Arm] Blood Pressure Position Pulse Oximetry 95 97 98 Oxygen Delivery Method Sepsis Recent Fever Within 48 Hours Sepsis New/Unexplained Change in Mental Status Sepsis Action Taken by Nursing Laboratory Data Result diagrams: 04/20/21 20:42 04/20/21 20:42 Lab Results 04/20/21 04/20/21 04/20/21 Range/Units 20:42 20:42 20:52 WBC 14.64 H (4.8-10.8) K/uL RBC 4.02 L (4.2-5.4) M/uL Hgb 12.2 (12.0-16.0) g/dL POC Hgb 13.3 (12.0-16.0) g/dl Hct 37.2 (37-47) % POC Hct 39 (37-47) % MCV 92.5 (80-100) fL MCH 30.3 (25-34) pg MCHC 32.8 (32-36) g/dL RDW Std Deviation 52.6 H (36.4-46.3) fL RDW Coeff of Yamile 15.5 H (11.5-14.5) % Plt Count 423 H (130-400) K/uL MPV 10.3 (7.4-10.4) fL Immature Gran % (Auto) 0.2 % Neut % (Auto) 83.7 % Lymph % (Auto) 11.5 % [place] % (Auto) 3.5 % Eos % (Auto) 1.0 % Baso % (Auto) 0.1 % Neut # (Auto) 12.26 H (1.4-6.5) K/uL Lymph # (Auto) 1.69 (1.2-3.4) K/uL [place] # (Auto) 0.51 (0.11-0.59) K/uL Eos # (Auto) 0.14 (0-0.5) K/uL Baso # (Auto) 0.01 (0-0.2) K/uL Immature Gran # (Auto) 0.03 H (0.00-0.02) K/uL PT (9.0-12.0) Seconds INR (0.9-1.1) POC Sodium 138 (135-144) mmol/L Sodium 136 (136-145) mmol/L POC Potassium 3.9 (3.3-5.0) mmol/L Potassium 3.9 (3.5-5.1) mmol/L POC Chloride 105 (101-112) mmol/L Chloride 106 (98-107) mmol/L Carbon Dioxide 23 (21-32) mmol/L POC Total CO2 23 L (24-31) mmol/L Anion Gap 7 (3-11) POC Anion Gap 15.0 L (16-25) mmol/L POC BUN 14 (7-18) mg/dl BUN 14 (6-23) mg/dl Creatinine 0.50 L (0.6-1.2) mg/dl POC Creatinine 0.4 L (0.6-1.3) mg/dl Est Cr Clr Drug Dosing 143.5 ml/min Est GFR ( Amer) 139.3 ml/min Est GFR (Non-Af Amer) 120.2 ml/min BUN/Creatinine Ratio 28.0 H (10-20) Glucose 95 (70-99(Fasting)) mg/dl POC Glucose (other) 99 (70-99) mg/dl Calcium 9.1 (8.5-10.1) mg/dl POC Ioniz Calcium Kyra 1.20 (1.12-1.32) mmol/l Total Bilirubin 0.4 (0.2-1.0) mg/dl AST 20 (13-39) U/L ALT 25 (7-52) U/L Alkaline Phosphatase 138 H (34-104) U/L Total Protein 7.4 (6.0-8.3) gm/dl Albumin 4.0 (3.4-5.0) gm/dl Globulin 3.4 (2.5-4.0) gm/dl Albumin/Globulin Ratio 1.2 (0.9-2) Lipase 1321 H (11-82) U/L Urine Color Urine Appearance (Clear) Urine pH (4.5-7.5) Ur Specific Sabael (1.000-1.030) Urine Protein (Negative) Urine Glucose (UA) (Negative) Urine Ketones (Negative) Urine Blood (Negative) Urine Nitrite (Negative) Urine Bilirubin (Negative) Urine Urobilinogen (Negative) Ur Leukocyte Esterase (Negative) POC Ur Test (NEG) 04/20/21 04/20/21 04/20/21 Range/Units 21:26 21:45 21:45 WBC (4.8-10.8) K/uL RBC (4.2-5.4) M/uL Hgb (12.0-16.0) g/dL POC Hgb (12.0-16.0) g/dl Hct (37-47) % POC Hct (37-47) % MCV (80-100) fL MCH (25-34) pg MCHC (32-36) g/dL RDW Std Deviation (36.4-46.3) fL RDW Coeff of Yamile (11.5-14.5) % Plt Count (130-400) K/uL MPV (7.4-10.4) fL Immature Gran % (Auto) % Neut % (Auto) % Lymph % (Auto) % [place] % (Auto) % Eos % (Auto) % Baso % (Auto) % Neut # (Auto) (1.4-6.5) K/uL Lymph # (Auto) (1.2-3.4) K/uL [place] # (Auto) (0.11-0.59) K/uL Eos # (Auto) (0-0.5) K/uL Baso # (Auto) (0-0.2) K/uL Immature Gran # (Auto) (0.00-0.02) K/uL PT 10.7 (9.0-12.0) Seconds INR 1.1 (0.9-1.1) POC Sodium (135-144) mmol/L Sodium (136-145) mmol/L POC Potassium (3.3-5.0) mmol/L Potassium (3.5-5.1) mmol/L POC Chloride (101-112) mmol/L Chloride (98-107) mmol/L Carbon Dioxide (21-32) mmol/L POC Total CO2 (24-31) mmol/L Anion Gap (3-11) POC Anion Gap (16-25) mmol/L POC BUN (7-18) mg/dl BUN (6-23) mg/dl Creatinine (0.6-1.2) mg/dl POC Creatinine (0.6-1.3) mg/dl Est Cr Clr Drug Dosing ml/min Est GFR ( Amer) ml/min Est GFR (Non-Af Amer) ml/min BUN/Creatinine Ratio (10-20) Glucose (70-99(Fasting)) mg/dl POC Glucose (other) (70-99) mg/dl Calcium (8.5-10.1) mg/dl POC Ioniz Calcium Kyra (1.12-1.32) mmol/l Total Bilirubin (0.2-1.0) mg/dl AST (13-39) U/L ALT (7-52) U/L Alkaline Phosphatase (34-104) U/L Total Protein (6.0-8.3) gm/dl Albumin (3.4-5.0) gm/dl Globulin (2.5-4.0) gm/dl Albumin/Globulin Ratio (0.9-2) Lipase (11-82) U/L Urine Color Yellow Urine Appearance Clear (Clear) Urine pH 6.0 (4.5-7.5) Ur Specific Sabael > 1.045 H (1.000-1.030) Urine Protein Negative (Negative) Urine Glucose (UA) Negative (Negative) Urine Ketones Negative (Negative) Urine Blood Negative (Negative) Urine Nitrite Negative (Negative) Urine Bilirubin Negative (Negative) Urine Urobilinogen Negative (Negative) Ur Leukocyte Esterase Negative (Negative) POC Ur Test NEG (NEG) Administered Medications Discontinued Medications Sodium Chloride (Nss 1000ml) 1,000 mls @ 999 mls/hr IV .Q1H1M ONE Stop: 04/20/21 21:11 Last Infusion: 04/20/21 22:13 Dose: 0 mls/hr Documented by: [id number] Admin: 04/20/21 20:45 Dose: 999 mls/hr Documented by: [id number] Ioversol (Optiray 320 100ml) 92 ml IV ONCE ONE Stop: 04/20/21 21:03 Last Admin: 04/20/21 21:05 Dose: 92 ml Documented by: [id number] Morphine Sulfate (Morphine Sulfate 10 Mg/Ml Carp/Vial) 6 mg IV NOW STA Stop: 04/20/21 20:29 Last Admin: 04/20/21 20:44 Dose: 6 mg Documented by: [id number] Morphine Sulfate (Morphine Sulfate 4 Mg/Ml 1 Ml Carp\\Vial) 4 mg IV NOW STA Stop: 04/20/21 23:39 Last Admin: 04/20/21 23:48 Dose: 4 mg Documented by: [id number] Ondansetron HCl (Ondansetron Inj 2 Mg/Ml 2 Ml Vial) 4 mg IV NOW STA Stop: 04/20/21 20:12 Last Admin: 04/20/21 20:44 Dose: 4 mg Documented by: [id number] Imaging Data Radiologist's Impression: Abdomen/Pelvis CT 04/20/21 20:28 CT abd pelvis IV con only CLINICAL HISTORY: Right mid to upper abdominal pain. History of pancreatic stent. COMPARISON STUDY: 03/01/2021 CT DOSE: 422.82 mGy.cm TECHNIQUE: Standard CT of the Abdomen and Pelvis was performed with IV contrast. A dose lowering technique was utilized adhering to the principles of ALARA. Contrast Volume: Optiray 320, 92 ml. The patient did not receive oral contrast. FINDINGS: Lung base: The lung bases are clear. Abdominal cavity: There is no evidence for abdominal mass, adenopathy or ascites. There is a stent now present between the stomach and the pancreas. There is an umbilical hernia present with mesenteric fat. This is unchanged. Liver: There is homogeneous attenuation of the liver parenchyma. There is no evidence for enhancing mass lesion. Spleen: There is homogeneous attenuation of the splenic parenchyma. There is no enhancing mass lesion. Pancreas: There is diffuse edema of the pancreas characteristic of pancreatitis. There is a fluid collection seen within the mid body of the pancreas characteristic of a pseudocyst. It measures approximately 2.4 x 2.3 cm. There is edema seen surrounding predominantly the head and body the pancreas. No other focal fluid collections are identified. Gall Bladder: The gallbladder is contracted. Adrenal glands: The adrenal glands are normal in size and attenuation. There is no evidence for enhancing mass lesion. Kidneys: There is homogeneous attenuation of the renal parenchyma bilaterally. There is no evidence for renal calculus or hydronephrosis. There is no evidence for enhancing mass. Bowel: Fluid-filled loops of small bowel are seen throughout the abdomen and pelvis without evidence for disproportionate dilatation or obstruction. The findings are most characteristic of an ileus. There is no evidence for mass lesion. There are no inflammatory changes present. There is no evidence for free air. Bladder: The bladder is within normal limits with no evidence for focal mass, calculus or diverticulum. : There is no evidence for pelvic mass or adenopathy. There is no evidence for pelvic ascites. An IUD is present within the uterus. Cystic changes are seen involving the ovaries bilaterally. There is a 3.4 x 2.6 cm low-attenuation lesion seen in the left groin. It does not appear to represent a lymph node. Follow-up ultrasound is recommended. Vasculature: There is no evidence for aneurysmal dilatation of the abdominal aorta. Osseous structures: There is no acute osseous pathology. IMPRESSION: 1. Evidence for recurrent pancreatitis with a pseudocyst present within the mid body the pancreas. 2. Associated small bowel ileus. 3. Stent has been placed between the stomach and the pancreas. 4. 3.4 cm low-attenuation lesion within the left groin of uncertain etiology. Fo llow-up ultrasound is recommended for further evaluation. 5. Additional nonacute findings as delineated above. ACT 112: Negative or not required by law. Electronically signed by: Wil Xiao M.D. 04/20/2021 9:37 PM Discharge Plan Visit Data Chief Complaint: Abdominal Pain Stated Complaint: SIDE PAIN, PANCREATITIS DIAGNOSIS LAST MONTH ED Provider: Van Anne Discharge Problem: Pancreatitis, Abdominal pain, Leukocytosis Forms Stand Alone Forms: [facility] [employer] Prescriptions Prescriptions: No Action Mirena 20 mcg/24 hours (7 yrs) 52 mg intrauterine device 1 insert INTRAUTERINE CONTINOUS RF: 0 warfarin 5 mg tablet 5 mg PO DAILY RF: 0 Referrals Referrals: Evette Velázquez PA-C [Primary Care Provider] -
[2021-04-20] MEDS ORDERED: MoRPHine SULFATE 10 MG/ML CARP/VIAL IV STA (20:28)
[2021-04-20] MEDS ORDERED: OPTIRAY 320 100ml IV ONE (21:02)
[2021-04-20 21:03] LABS: Basophils # (auto) 0.01 K/uL (0-0.2); Basophils % (auto) 0.1 %; Eosinophils # (auto) 0.14 K/uL (0-0.5); Hematocrit (blood only) 37.2 % (37-47); Hemoglobin 12.2 g/dL (12.0-16.0); Immature Granulocytes # (auto) 0.03 K/uL (0.00-0.02); Immature Granulocytes % (auto) 0.2 %; Lymphocytes # (auto) 1.69 K/uL (1.2-3.4); Lymphocytes % (auto) 11.5 %; Mean Corpuscular Hemoglobin 30.3 pg (25-34); Mean Corpuscular Hgb Conc 32.8 g/dL (32-36); Mean Corpuscular Volume 92.5 fL (80-100); Mean Platelet Volume 10.3 fL (7.4-10.4); Monocytes # (auto) 0.51 K/uL (0.11-0.59); Monocytes % (auto) 3.5 %; Neutrophils # (auto) 12.26 K/uL (1.4-6.5); Neutrophils % (auto) 83.7 %; Platelet Count 423 K/uL (130-400); RDW Coefficient of Variation 15.5 % (11.5-14.5); RDW Standard Deviation 52.6 fL (36.4-46.3); Red Blood Count 4.02 M/uL (4.2-5.4); White Blood Count 14.64 K/uL (4.8-10.8)
[2021-04-20 21:05] LABS: iSTAT Creatinine 0.4 mg/dl (0.6-1.3); iSTAT Hemoglobin 13.3 g/dl (12.0-16.0); iSTAT Ionized Calcium 1.2 mmol/l (1.12-1.32); iSTAT Potassium 3.9 mmol/L (3.3-5.0)
[2021-04-20 21:26] LABS: Calcium 9.1 mg/dl (8.5-10.1); Creatinine Clr Calc Pharmacy 143.5 ml/min; Est GFR (African American) 139.3 ml/min; Est GFR (Non-African American) 120.2 ml/min; Potassium 3.9 mmol/L (3.5-5.1)
[2021-04-20 21:34] LABS: Albumin Globulin Ratio 1.2 (0.9-2); Bilirubin,Total 0.4 mg/dl (0.2-1.0); Globulin 3.4 gm/dl (2.5-4.0); Total Protein 7.4 gm/dl (6.0-8.3)
--- NOTE | 2021-04-20 21:38 | CT Scan Report ---
CT abd pelvis IV con only CLINICAL HISTORY: Right mid to upper abdominal pain. History of pancreatic stent. COMPARISON STUDY: 03/01/2021 CT DOSE: 422.82 mGy.cm TECHNIQUE: Standard CT of the Abdomen and Pelvis was performed with IV contrast. A dose lowering clovis hnique was utilized adhering to the principles of ALARA. Contrast Volume: Optiray 320, 92 ml. The patient did not receive oral contrast. FINDINGS: Lung base: The lung bases are clear. Abdominal cavity: There is no evidence for abdominal mass, adenopathy or ascites. There is a stent no w present between the stomach and the pancreas. There is an umbilical hernia present with mesenteric fat. This is unchanged. Liver: There is homogeneous attenuation of the liver parenchyma. There is no evidence for enhancing m ass lesion. Spleen: There is homogeneous attenuation of the splenic parenchyma. There is no enhancing mass lesion . Pancreas: There is diffuse edema of the pancreas characteristic of pancreatitis. There is a fluid col lection seen within the mid body of the pancreas characteristic of a pseudocyst. It measures approxim ately 2.4 x 2.3 cm. There is edema seen surrounding predominantly the head and body the pancreas. No other focal fluid collections are identified. Gall Bladder: The gallbladder is contracted. Adrenal glands: The adrenal glands are normal in size and attenuation. There is no evidence for enhan cing mass lesion. Kidneys: There is homogeneous attenuation of the renal parenchyma bilaterally. There is no evidence f or renal calculus or hydronephrosis. There is no evidence for enhancing mass. Bowel: Fluid-filled loops of small bowel are seen throughout the abdomen and pelvis without evidence for disproportionate dilatation or obstruction. The findings are most characteristic of an ileus. The re is no evidence for mass lesion. There are no inflammatory changes present. There is no evidence fo r free air. Bladder: The bladder is within normal limits with no evidence for focal mass, calculus or diverticulu m. : There is no evidence for pelvic mass or adenopathy. There is no evidence for pelvic ascites. An I UD is present within the uterus. Cystic changes are seen involving the ovaries bilaterally. There is a 3.4 x 2.6 cm low-attenuation lesion seen in the left groin. It does not appear to represen t a lymph node. Follow-up ultrasound is recommended. Vasculature: There is no evidence for aneurysmal dilatation of the abdominal aorta. Osseous structures: There is no acute osseous pathology. IMPRESSION: 1. Evidence for recurrent pancreatitis with a pseudocyst present within the mid body the pancreas. 2. Associated small bowel ileus. 3. Stent has been placed between the stomach and the pancreas. 4. 3.4 cm low-attenuation lesion within the left groin of uncertain etiology. Follow-up ultrasound is recommended for further evaluation. 5. Additional nonacute findings as delineated above. ACT 112: Negative or not required by law. Electronically signed by: Wil Xiao M.D. 04/20/2021 9:37 PM
[2021-04-20 21:45] LABS: INR 1.1 (0.9-1.1); Prothrombin Time 10.7 Seconds (9.0-12.0)
[2021-04-20 22:10] LABS: Appearance Urine Clear (Clear); Bilirubin Urine Negative (Negative); Blood Urine Negative (Negative); Color Urine Yellow; Glucose Urine UA Negative (Negative); Ketones Urine Negative (Negative); Leukocyte Esterase Urine Negative (Negative); Nitrite Urine Negative (Negative); Protein Urine Negative (Negative); Specific Gravity Urine > 1.045 (1.000-1.030); Urobilinogen Urine Negative (Negative)
[2021-04-20] MEDS ORDERED: MoRPHine SULFATE 4 MG/ML 1 ML CARP\\VIAL IV STA (23:38)
[2021-04-21] MEDS ORDERED: ONDANSETRON INJ 2 MG/ML 2 ML VIAL IV PRN (04:08)
[2021-04-21] MEDS ORDERED: ACETAMINOPHEN 325 MG TAB PO PRN (04:08)
[2021-04-21] MEDS: LACTATED RINGER'S 1,000 ML IV SCH ×4 (04:52→19:47)
[2021-04-21] MEDS: HYDROmorphone INJ 0.5 MG/0.5 ML SYR IV PRN ×4 (04:54→22:16)
[2021-04-21 05:33] LABS: Basophils # (auto) 0.01 K/uL (0-0.2); Basophils % (auto) 0.1 %; Eosinophils # (auto) 0.24 K/uL (0-0.5); Eosinophils % (auto) 2.2 %; Hematocrit (blood only) 33.4 % (37-47); Hemoglobin 10.8 g/dL (12.0-16.0); Immature Granulocytes # (auto) 0.02 K/uL (0.00-0.02); Immature Granulocytes % (auto) 0.2 %; Lymphocytes # (auto) 1.21 K/uL (1.2-3.4); Mean Corpuscular Hemoglobin 29.8 pg (25-34); Mean Platelet Volume 10.2 fL (7.4-10.4); Monocytes # (auto) 0.68 K/uL (0.11-0.59); Monocytes % (auto) 6.2 %; Neutrophils # (auto) 8.81 K/uL (1.4-6.5); Neutrophils % (auto) 80.3 %; Platelet Count 348 K/uL (130-400); RDW Coefficient of Variation 15.5 % (11.5-14.5); RDW Standard Deviation 52.8 fL (36.4-46.3); Red Blood Count 3.63 M/uL (4.2-5.4); White Blood Count 10.97 K/uL (4.8-10.8)
[2021-04-21] MEDS: Heparin IV Adult Wt-Based Standard *NO* Bolus Protocol IV SCH (05:34)
[2021-04-21 05:35] LABS: Mean Corpuscular Hgb Conc 32.3 g/dL (32-36)
[2021-04-21 05:37] LABS: INR 1.1 (0.9-1.1); Partial Thromboplastin Ratio 1.1; Partial Thromboplastin Time 27.9 Seconds (21.0-31.0); Prothrombin Time 10.9 Seconds (9.0-12.0)
[2021-04-21 05:42] LABS: BUN Creatinine Ratio 23.4 (10-20); Calcium 8.3 mg/dl (8.5-10.1); Creatinine Clr Calc Pharmacy 152.6 ml/min; Est GFR (African American) 142.2 ml/min; Est GFR (Non-African American) 122.7 ml/min; Magnesium 1.6 mg/dl (1.7-2.4); Potassium 3.8 mmol/L (3.5-5.1)
[2021-04-21] MEDS: HEPARIN SODIUM/DEXTROSE 25,000 UNITS/500 ML BAG IV SCH (05:47)
--- NOTE | 2021-04-21 08:09 | History and Physical Report ---
DATE OF ADMISSION: 04/21/2021. CHIEF COMPLAINT: Abdominal pain. HISTORY OF PRESENT ILLNESS: This is a 40-year-old female with past medical history significant for pancreatitis, portal vein thrombosis, tobacco use disorder, history of alcoholism, presents with abdominal pain. The patient was recently diagnosed with acute pancreatitis in end of January. The patient states since then she is not drinking any alcohol. She also underwent an upper endoscopic ultrasound and 7 cm pseudocyst was found. A cystogastrostomy was performed using a 10 mm stent. The patient says she is supposed to get stent taken out in the coming week and she also was recently found to have portal vein thrombosis and she was advised to start Coumadin, but the patient has not got the medication yet and today comes back because she is having severe about 6/10 abdominal pain in the right side of the abdomen. Currently after pain medication, the pain is better. Denies any diarrhea or constipation. No blood in stools or black stools. Normal bladder movements. No nausea, no vomiting, no chest pain, no shortness of breath, no cough, no headache, no blurred visions, no earache, no runny nose, no fevers. Currently, resting comfortably and hemodynamically stable. Lipase was elevated. ALLERGIES: POLLEN EXTRACTS. PAST MEDICAL HISTORY: As mentioned above. PAST SURGICAL HISTORY: Dilatation and curettage, EGD with endoscopic ultrasound. MEDICATIONS: Currently on levonorgestrel IM and warfarin 5 mg p.o. daily. FAMILY HISTORY: Significant for mother has arthritis and father has hypertension. SOCIAL HISTORY: Former smoker, quit in 2008, smoked half pack a day for 5 years. Alcohol, currently she says she is not drinking. No drug use. REVIEW OF SYSTEMS: As per HPI. Rest of the review of systems is negative. PHYSICAL EXAMINATION: GENERAL: The patient is of moderate build, not in acute distress. VITAL SIGNS: Temperature 36.8, pulse 87, respiratory rate 16, blood pressure 101/67, oxygen 98% on room air. HEENT: Pupils equal, round and reactive to light. Oral mucosa moist. NECK: No JVD, no neck masses. CARDIOVASCULAR: S1 and S2 heard. Regular rate and rhythm. No murmur, no gallop. RESPIRATORY: Normal AP diameter. No accessory muscle use. No wheezing, no crackles. ABDOMEN: Soft, bowel sounds sluggish. Tenderness in the right upper and lower quadrant. Mild guarding, no rigidity. No distention. CENTRAL NERVOUS SYSTEM: Cranial nerves II through XII are grossly intact, nonfocal. EXTREMITIES: No edema, no erythema. LABORATORY DATA: WBC 14.6, hemoglobin 12.2, hematocrit 37.2, platelets 423. PT 10.7, INR 1.1. Sodium 136, potassium 3.9, chloride 106, bicarbonate 23, BUN 14, creatinine 0.5, serum glucose 95, calcium 9.1, total bilirubin 0.4, AST 20, ALT 25, alkaline phosphatase 138, lipase 1321. Urinalysis negative. Urine test negative. SARS-CoV-2 negative. IMAGING DATA: CT of abdomen and pelvis with IV contrast only shows evidence for recurrent pancreatitis with pseudocyst present within the mid body of the pancreas, associated small bowel ileus. Stent has been placed between the stomach and the pancreas. A 3.4 cm low attenuation in the left groin of uncertain etiology. Followup ultrasound is recommended for further evaluation. ASSESSMENT AND PLAN: This is a 40-year-old female who presents with recurrent pancreatitis. 1. Recurrent pancreatitis: The patient had endoscopic ultrasound and is status post stent placement. Presents with abdominal pain and found to have elevated lipase. CAT scan is showing recurrent pancreatitis. The patient says she did not drink since the day after Thanksgiving. n.p.o. Aggressive fluids, IV pain meds p.r.n. and monitor in the medical floor. 2. portal vein thrombosis: The patient was advised to start on Coumadin, not started yet. Iv heparin.. Consult GI for further recommendation. 3. 3.4 cm low attenuation lesion in left groin. needs followup. 4. Deep venous thrombosis prophylaxis: iv heparin. DISPOSITION: Closely monitor in the medical floor. Expect to discharge home and follow with family doctor. Job ID: [id number] [facility]
--- NOTE | 2021-04-21 08:59 | Hospitalist Progress Note ---
Date of Service April 21, 2021 Assessment & Plan (1) Pancreatitis: (2) Alcohol dependence: (3) Portal vein thrombosis: (4) Ileus: Plan: This is a 40 year old female with recurrent pancreatitis, fluid collection s/p EUS w/ axios drainage, outside imaging showing improvement of fluid collection admitted w/ pain returning with recurrent diffuse abdominal pain. CT abd/pelvis with evidence for recurrent pancreatitis with a pseudocyst present within the mid body the pancreas and associated small bowel ileus. Stent has been placed between the stomach and the pancreas Made NPO with LR @ 200 ml/hr (has lower BP at baseline). Continue analgesics and antiemetics GI ordered MRCP Small bowel ileus Bowel regimen and daily KUB If develops emesis will need to consider repeat KUB +/- NG given findings of ileus on CT Portal vein thrombosis Diagnosed as outpatient, had not yet started coumadin. IV heparin started, will plan to start coumadin tomorrow once GI imaging results History of alcohol dependence Denies drinking since January DVT Ppx: IV heparin Code status: FULL Dispo: Admitted to med/surg Admission and Anticipated Discharge Date Admission Date: April 21, 2021 Supervising Physician Co-Signing Physician Notes Attending addendum The patient was seen and examined in medical floor She complains to have some abdominal discomfort without nausea, vomiting or distention Denies any significant pain On examination No apparent distress at rest Blood pressure 60 on the lower side Chestclear to auscultate bilaterally HeartS1-S2, regular Abdomendistended, soft, mildly tender in the epigastrium and bowel sound prese nt but sluggish Extremitiesnegative for any edema Her admission labs, imaging studies reviewed Has recurrent pancreatitis likely secondary to use of alcohol Agree with assessment and plan as outlined above by HOWARD Alexis Dr Subjective Seen and examined in 383-1 for recurrent pancreatitis, fluid collection s/p EUS w/ axios drainage. Also with recent diagnosis of portal vein thrombosis, following with GI. Feeling comfortable with pain regimen. No nausea or vomiting, eating ice chips. No abdominal discomfort at rest. No fever, chills, CP, SOB, dysuria or diarrhea Review of Systems Review of Systems: At least ten systems reviewed and negative except as noted in the HPI. Physical Exam Physical Exam: Gen: WD/WN, NAD, lying in bed, A&Ox3 HEENT: Normocephalic, atraumatic, conjunctivae moist, sclerae anicteric, mucous membranes moist Lung: Clear to Auscultation bilaterally, no wheezes/rales/rhonchi Heart: Regular rate, regular rhythm, no murmurs, rubs, or gallops Abdomen: Soft, mild diffuse TTP accross lower abd, ND +BS x 4 Extremities: no edema Skin: Warm, no rash Results & Data Results & Data ([facility]) Vital Signs (Past 12 Hours) Vital Signs Temp Pulse Pulse Resp BP BP Pulse Ox 04/21/21 07:46 36.7 C 90 16 90/55 L 92 04/21/21 04:30 36.5 C 89 14 92/60 L 93 04/21/21 03:47 75 18 86/56 L 96 04/21/21 00:30 87 16 101/67 98 04/21/21 00:00 83 20 96/61 L 97 04/20/21 23:30 86 20 105/62 95 04/20/21 23:00 88 20 104/69 98 04/20/21 22:30 84 18 104/71 98 04/20/21 22:00 82 22 99/59 L 99 04/20/21 21:49 83 16 107/64 99 Laboratory Results Short CBC 04/20/21 04/21/21 Range/Units 20:42 05:08 WBC 14.64 H 10.97 H (4.8-10.8) K/uL Hgb 12.2 10.8 L (12.0-16.0) g/dL Hct 37.2 33.4 L (37-47) % Plt Count 423 H 348 (130-400) K/uL BMP 04/20/21 04/21/21 20:42 05:08 Sodium 136 136 Potassium 3.9 3.8 Chloride 106 107 Carbon Dioxide 23 23 BUN 14 11 Creatinine 0.50 L 0.47 L Glucose 95 95 Calcium 9.1 8.3 L Liver Function 04/20/21 Range/Units 20:42 Total Bilirubin 0.4 (0.2-1.0) mg/dl AST 20 (13-39) U/L ALT 25 (7-52) U/L Alkaline Phosphatase 138 H (34-104) U/L Albumin 4.0 (3.4-5.0) gm/dl Urine 04/20/21 Range/Units 21:45 Urine Color Yellow Urine Appearance Clear (Clear) Urine pH 6.0 (4.5-7.5) Ur Specific [place] > 1.045 H (1.000-1.030) Urine Protein Negative (Negative) Urine Glucose (UA) Negative (Negative) Diagnostic Findings Abdomen/Pelvis CT 04/20/21 20:28 CT abd pelvis IV con only CLINICAL HISTORY: Right mid to upper abdominal pain. History of pancreatic stent. COMPARISON STUDY: 03/01/2021 CT DOSE: 422.82 mGy.cm TECHNIQUE: Standard CT of the Abdomen and Pelvis was performed with IV contrast. A dose lowering technique was utilized adhering to the principles of ALARA. Contrast Volume: Optiray 320, 92 ml. The patient did not receive oral contrast. FINDINGS: Lung base: The lung bases are clear. Abdominal cavity: There is no evidence for abdominal mass, adenopathy or ascites. There is a stent now present between the stomach and the pancreas. There is an umbilical hernia present with mesenteric fat. This is unchanged. Liver: There is homogeneous attenuation of the liver parenchyma. There is no evidence for enhancing mass lesion. Spleen: There is homogeneous attenuation of the splenic parenchyma. There is no enhancing mass lesion. Pancreas: There is diffuse edema of the pancreas characteristic of pancreatitis. There is a fluid collection seen within the mid body of the pancreas characteristic of a pseudocyst. It measures approximately 2.4 x 2.3 cm. There is edema seen surrounding predominantly the head and body the pancreas. No other focal fluid collections are identified. Gall Bladder: The gallbladder is contracted. Adrenal glands: The adrenal glands are normal in size and attenuation. There is no evidence for enhancing mass lesion. Kidneys: There is homogeneous attenuation of the renal parenchyma bilaterally. There is no evidence for renal calculus or hydronephrosis. There is no evidence for enhancing mass. Bowel: Fluid-filled loops of small bowel are seen throughout the abdomen and pelvis without evidence for disproportionate dilatation or obstruction. The findings are most characteristic of an ileus. There is no evidence for mass lesion. There are no inflammatory changes present. There is no evidence for free air. Bladder: The bladder is within normal limits with no evidence for focal mass, calculus or diverticulum. : There is no evidence for pelvic mass or adenopathy. There is no evidence for pelvic ascites. An IUD is present within the uterus. Cystic changes are seen involving the ovaries bilaterally. There is a 3.4 x 2.6 cm low-attenuation lesion seen in the left groin. It does not appear to represent a lymph node. Follow-up ultrasound is recommended. Vasculature: There is no evidence for aneurysmal dilatation of the abdominal aorta. Osseous structures: There is no acute osseous pathology. IMPRESSION: 1. Evidence for recurrent pancreatitis with a pseudocyst present within the mid body the pancreas. 2. Associated small bowel ileus. 3. Stent has been placed between the stomach and the pancreas. 4. 3.4 cm low-attenuation lesion within the left groin of uncertain etiology. Follow-up ultrasound is recommended for further evaluation. 5. Additional nonacute findings as delineated above. ACT 112: Negative or not required by law. Electronically signed by: Wil Xiao M.D. 04/20/2021 9:37 PM (1) Pancreatitis Acute pancreatitis complication: unspecified Chronicity: acute Pancreatitis type: unspecified pancreatitis type Qualified Code(s): K85.90 - Acute pancreatitis without necrosis or infection, unspecified
--- NOTE | 2021-04-21 09:14 | Gastrointestinal Consultation ---
Date of Consultation April 21, 2021 Assessment & Plan (1) Pancreatitis: 40 year old female with recurrent pancreatitis, fluid collection s/p EUS w/ axios drainage, outside imaging showing improvement of fluid collection admitted w/ pain, elevated lipase and imaging showing diffuse edema of the pancreas, 2.4 x 2.3 cm fluid collection midbody but no other focal fluid collections are identified and an ileus NPO LR 200 mL/hr Analgesia PRN Antiemetics PRN Bowel regimen Daily KUB If develops emesis will need to consider repeat KUB +/- NG given findings of ileus on CT Thank you for allowing us to participate in the care of this patient. Please call with any acute changes, questions or concerns. Please see addendum below with additional recommendation from my supervising physician. Supervising Physician Co-Signing Physician Notes I have seen and examined the patient with YOLANDA Gonzalez whose note reflects our findings and plan. Patient with complicated pancreatitis history a nd pseudocyst requiring Axios stent for drainage 2-3 weeks ago. Here with pain and imaging and labs s/o pancreatitis.Fluid collection size improved on imaging. Please get an MRCP to further evaluate the pancreatic duct, etc. NPO . IVF. PRN analgesia and anti-emetics. History of Present Illness Reason for Consultation: pancreatitis Requesting Physician: Jie Attending Physician: Jorge Ceron MD History of Present Illness 40 year old female w/ history of pancreatitis w/ panc head fluid collection s/p EUS on 03/30 w/ 7 cm pseudocyst was seen in the peripancreatic area, Cystogastrostomy w/ Axios stent, OP CT 04/13 showed resolution of previously seen large fluid collection, other scattered pancreatic collections have decreased in size, nonocclusive thrombus in the main portal vein, previously seen small thrombus at the portal confluence extending into the splenic vein is smaller started on anticoagulation. Admitted w/ abd pain, discomfort this week. On arriv al CT showing pancreatitis and lipase elevation. Notes this AM he has had some improvement of pain but not resolution. No nausea, vomiting. Moving bowels, no black or bloody stools. Denies ETOH No new medications other than known AC Denies marijuana or illicit street drugs CTAP 2021: Evidence for recurrent pancreatitis with a pseudocyst present within the mid body the pancreas.. Associated small bowel ileus. Stent has been placed between the stomach and the pancreas. 3.4 cm low-attenuation lesion within the left groin of uncertain etiology. Follow-up ultrasound is recommended for further evaluation. EUS 2020: 7 cm pseudocyst was seen in the peripancreatic area, Cystogastrostomy w/ Axios stent ABD US 2020:The pancreas appears mildly enlarged and heterogeneous. This corresponds to findings of acute pancreatitis seen by CT. No gallstones are identified. Hepatomegaly and hepatic steatosis. CTAP 2020: Findings are consistent with severe acute pancreatitis as above.The gland enhances throughout. There is a 1.7 cm fluid collection adjacent the pancreatic head, likely representing a pseudocyst. Wall thickening and edema of the duodenum is likely related to adjacent pancreatitis.Hepatomegaly and hepatic steatosis. A small volume of free fluid in the pelvis is nonspecific. Allergies Allergy/AdvReac Type Severity Reaction Status Date / Time pollen extracts Allergy Unknown SEASONAL-IT Verified 04/20/21 20:30 KATE Home Medications Medication Instructions Recorded Confirmed Type levonorgestrel 20 mcg/24 hours (7 1 insert INTRAUTERINE CONTINOUS 04/20/21 04/20/21 History yrs) 52 mg intrauterine device (Mirena) warfarin 5 mg tablet 5 mg PO DAILY 04/20/21 04/20/21 History Patient History Medical History (Updated 04/21/21 @ 00:54 by Van Anne DO) Acute pancreatitis Alcohol dependence Pancreatitis Tobacco abuse Surgical History (Updated 03/01/21 @ 10:38 by Silva Massey PA-C) History of dental surgery Family History (Updated 03/01/21 @ 10:38 by Silva Massey PA-C) Father Hypertension Mother Rheumatoid arthritis Social History (Updated 03/01/21 @ 10:39 by Silva Massey PA-C) Smoking Status: Current every day smoker Tobacco Type: Cigarettes packs per day: 1; Years Smoked: 20; Second Hand Exposure: No; Do You Dip or Chew Tobacco: No; Tobacco Cessation Education Requested by Patient: No Hx Alcohol Use: Yes Alcohol type: beer Alcohol type Comment: 4-5 shots; 4-5 x/wk Alcohol Intake Frequency: 4 or More x per/Week Hx Substance Use: Yes Last Used Substance Other:: "Years ago" according to patient. Preferred Language: Japanese Communication Ability: Effective Motorized Squad Lieutenant Required: No Beliefs That Will Affect Care: None marital status: Current Living Situation: Spouse Other Information That Helps Us Care for You: No Feels Safe at Home: Yes Safety Concerns: Feels Safe At This Time Assistive Devices: None Review of Systems Review of Systems: All systems reviewed & are unremarkable except as noted in HPI & below Physical Exam Constitutional: WD/WN, vitals as above Neck: trachea midline, no thyromegaly Respiratory: normal respiratory effort, lungs clear to auscultation Gastrointestinal (Abdomen): normal bowel sounds, soft, nontender, no hepatosplenomegaly Skin: no rashes, warm and dry Results & Data ([facility]) Vital Signs (Past 12 Hours) Vital Signs Temp Pulse Pulse Resp BP BP Pulse Ox 04/21/21 07:46 36.7 C 90 16 90/55 L 92 04/21/21 04:30 36.5 C 89 14 92/60 L 93 04/21/21 03:47 75 18 86/56 L 96 04/21/21 00:30 87 16 101/67 98 04/21/21 00:00 83 20 96/61 L 97 04/20/21 23:30 86 20 105/62 95 04/20/21 23:00 88 20 104/69 98 04/20/21 22:30 84 18 104/71 98 04/20/21 22:00 82 22 99/59 L 99 04/20/21 21:49 83 16 107/64 99 Laboratory Results 04/21/21 04/21/21 04/21/21 Range/Units 05:08 05:08 05:08 WBC 10.97 H (4.8-10.8) K/uL RBC 3.63 L (4.2-5.4) M/uL Hgb 10.8 L (12.0-16.0) g/dL POC Hgb (12.0-16.0) g/dl Hct 33.4 L (37-47) % POC Hct (37-47) % MCV 92.0 (80-100) fL MCH 29.8 (25-34) pg MCHC 32.3 (32-36) g/dL RDW Std Deviation 52.8 H (36.4-46.3) fL RDW Coeff of Yamile 15.5 H (11.5-14.5) % Plt Count 348 (130-400) K/uL MPV 10.2 (7.4-10.4) fL Immature Gran % (Auto) 0.2 % Neut % (Auto) 80.3 % Lymph % (Auto) 11.0 % [place] % (Auto) 6.2 % Eos % (Auto) 2.2 % Baso % (Auto) 0.1 % Neut # (Auto) 8.81 H (1.4-6.5) K/uL Lymph # (Auto) 1.21 (1.2-3.4) K/uL [place] # (Auto) 0.68 H (0.11-0.59) K/uL Eos # (Auto) 0.24 (0-0.5) K/uL Baso # (Auto) 0.01 (0-0.2) K/uL Immature Gran # (Auto) 0.02 (0.00-0.02) K/uL PT 10.9 (9.0-12.0) Seconds INR 1.1 (0.9-1.1) APTT 27.9 (21.0-31.0) Seconds PTT Ratio 1.1 POC Sodium (135-144) mmol/L Sodium (136-145) mmol/L POC Potassium (3.3-5.0) mmol/L Potassium (3.5-5.1) mmol/L POC Chloride (101-112) mmol/L Chloride (98-107) mmol/L Carbon Dioxide (21-32) mmol/L POC Total CO2 (24-31) mmol/L Anion Gap (3-11) POC Anion Gap (16-25) mmol/L POC BUN (7-18) mg/dl BUN (6-23) mg/dl Creatinine (0.6-1.2) mg/dl POC Creatinine (0.6-1.3) mg/dl Est Cr Clr Drug Dosing ml/min Est GFR ( Amer) ml/min Est GFR (Non-Af Amer) ml/min BUN/Creatinine Ratio (10-20) Glucose (70-99(Fasting)) mg/dl POC Glucose (other) (70-99) mg/dl Calcium (8.5-10.1) mg/dl POC Ioniz Calcium Kyra (1.12-1.32) mmol/l Magnesium (1.7-2.4) mg/dl Total Bilirubin (0.2-1.0) mg/dl AST (13-39) U/L ALT (7-52) U/L Alkaline Phosphatase (34-104) U/L Total Protein (6.0-8.3) gm/dl Albumin (3.4-5.0) gm/dl Globulin (2.5-4.0) gm/dl Albumin/Globulin Ratio (0.9-2) Lipase Pending (11-82) U/L Urine Color Urine Appearance (Clear) Urine pH (4.5-7.5) Ur Specific [place] (1.000-1.030) Urine Protein (Negative) Urine Glucose (UA) (Negative) Urine Ketones (Negative) Urine Blood (Negative) Urine Nitrite (Negative) Urine Bilirubin (Negative) Urine Urobilinogen (Negative) Ur Leukocyte Esterase (Negative) POC Ur Test (NEG) SARS-CoV-2, RNA, NAAT (NEGATIVE) 04/21/21 04/20/21 04/20/21 Range/Units 05:08 23:32 21:45 WBC (4.8-10.8) K/uL RBC (4.2-5.4) M/uL Hgb (12.0-16.0) g/dL POC Hgb (12.0-16.0) g/dl Hct (37-47) % POC Hct (37-47) % MCV (80-100) fL MCH (25-34) pg MCHC (32-36) g/dL RDW Std Deviation (36.4-46.3) fL RDW Coeff of Yamile (11.5-14.5) % Plt Count (130-400) K/uL MPV (7.4-10.4) fL Immature Gran % (Auto) % Neut % (Auto) % Lymph % (Auto) % [place] % (Auto) % Eos % (Auto) % Baso % (Auto) % Neut # (Auto) (1.4-6.5) K/uL Lymph # (Auto) (1.2-3.4) K/uL [place] # (Auto) (0.11-0.59) K/uL Eos # (Auto) (0-0.5) K/uL Baso # (Auto) (0-0.2) K/uL Immature Gran # (Auto) (0.00-0.02) K/uL PT (9.0-12.0) Seconds INR (0.9-1.1) APTT (21.0-31.0) Seconds PTT Ratio POC Sodium (135-144) mmol/L Sodium 136 (136-145) mmol/L POC Potassium (3.3-5.0) mmol/L Potassium 3.8 (3.5-5.1) mmol/L POC Chloride (101-112) mmol/L Chloride 107 (98-107) mmol/L Carbon Dioxide 23 (21-32) mmol/L POC Total CO2 (24-31) mmol/L Anion Gap 6 (3-11) POC Anion Gap (16-25) mmol/L POC BUN (7-18) mg/dl BUN 11 (6-23) mg/dl Creatinine 0.47 L (0.6-1.2) mg/dl POC Creatinine (0.6-1.3) mg/dl Est Cr Clr Drug Dosing 152.6 ml/min Est GFR ( Amer) 142.2 ml/min Est GFR (Non-Af Amer) 122.7 ml/min BUN/Creatinine Ratio 23.4 H (10-20) Glucose 95 (70-99(Fasting)) mg/dl POC Glucose (other) (70-99) mg/dl Calcium 8.3 L (8.5-10.1) mg/dl POC Ioniz Calcium Kyra (1.12-1.32) mmol/l Magnesium 1.6 L (1.7-2.4) mg/dl Total Bilirubin (0.2-1.0) mg/dl AST (13-39) U/L ALT (7-52) U/L Alkaline Phosphatase (34-104) U/L Total Protein (6.0-8.3) gm/dl Albumin (3.4-5.0) gm/dl Globulin (2.5-4.0) gm/dl Albumin/Globulin Ratio (0.9-2) Lipase (11-82) U/L Urine Color Yellow Urine Appearance Clear (Clear) Urine pH 6.0 (4.5-7.5) Ur Specific [place] > 1.045 H (1.000-1.030) Urine Protein Negative (Negative) Urine Glucose (UA) Negative (Negative) Urine Ketones Negative (Negative) Urine Blood Negative (Negative) Urine Nitrite Negative (Negative) Urine Bilirubin Negative (Negative) Urine Urobilinogen Negative (Negative) Ur Leukocyte Esterase Negative (Negative) POC Ur Test (NEG) SARS-CoV-2, RNA, NAAT NEGATIVE (NEGATIVE) 04/20/21 04/20/21 04/20/21 Range/Units 21:45 21:26 20:52 WBC (4.8-10.8) K/uL RBC (4.2-5.4) M/uL Hgb (12.0-16.0) g/dL POC Hgb 13.3 (12.0-16.0) g/dl Hct (37-47) % POC Hct 39 (37-47) % MCV (80-100) fL MCH (25-34) pg MCHC (32-36) g/dL RDW Std Deviation (36.4-46.3) fL RDW Coeff of Yamlie (11.5-14.5) % Plt Count (130-400) K/uL MPV (7.4-10.4) fL Immature Gran % (Auto) % Neut % (Auto) % Lymph % (Auto) % [place] % (Auto) % Eos % (Auto) % Baso % (Auto) % Neut # (Auto) (1.4-6.5) K/uL Lymph # (Auto) (1.2-3.4) K/uL [place] # (Auto) (0.11-0.59) K/uL Eos # (Auto) (0-0.5) K/uL Baso # (Auto) (0-0.2) K/uL Immature Gran # (Auto) (0.00-0.02) K/uL PT 10.7 (9.0-12.0) Seconds INR 1.1 (0.9-1.1) APTT (21.0-31.0) Seconds PTT Ratio POC Sodium 138 (135-144) mmol/L Sodium (136-145) mmol/L POC Potassium 3.9 (3.3-5.0) mmol/L Potassium (3.5-5.1) mmol/L POC Chloride 105 (101-112) mmol/L Chloride (98-107) mmol/L Carbon Dioxide (21-32) mmol/L POC Total CO2 23 L (24-31) mmol/L Anion Gap (3-11) POC Anion Gap 15.0 L (16-25) mmol/L POC BUN 14 (7-18) mg/dl BUN (6-23) mg/dl Creatinine (0.6-1.2) mg/dl POC Creatinine 0.4 L (0.6-1.3) mg/dl Est Cr Clr Drug Dosing ml/min Est GFR ( Amer) ml/min Est GFR (Non-Af Amer) ml/min BUN/Creatinine Ratio (10-20) Glucose (70-99(Fasting)) mg/dl POC Glucose (other) 99 (70-99) mg/dl Calcium (8.5-10.1) mg/dl POC Ioniz Calcium Kyra 1.20 (1.12-1.32) mmol/l Magnesium (1.7-2.4) mg/dl Total Bilirubin (0.2-1.0) mg/dl AST (13-39) U/L ALT (7-52) U/L Alkaline Phosphatase (34-104) U/L Total Protein (6.0-8.3) gm/dl Albumin (3.4-5.0) gm/dl Globulin (2.5-4.0) gm/dl Albumin/Globulin Ratio (0.9-2) Lipase (11-82) U/L Urine Color Urine Appearance (Clear) Urine pH (4.5-7.5) Ur Specific [place] (1.000-1.030) Urine Protein (Negative) Urine Glucose (UA) (Negative) Urine Ketones (Negative) Urine Blood (Negative) Urine Nitrite (Negative) Urine Bilirubin (Negative) Urine Urobilinogen (Negative) Ur Leukocyte Esterase (Negative) POC Ur Test NEG (NEG) SARS-CoV-2, RNA, NAAT (NEGATIVE) 04/20/21 04/20/21 Range/Units 20:42 20:42 WBC 14.64 H (4.8-10.8) K/uL RBC 4.02 L (4.2-5.4) M/uL Hgb 12.2 (12.0-16.0) g/dL POC Hgb (12.0-16.0) g/dl Hct 37.2 (37-47) % POC Hct (37-47) % MCV 92.5 (80-100) fL MCH 30.3 (25-34) pg MCHC 32.8 (32-36) g/dL RDW Std Deviation 52.6 H (36.4-46.3) fL RDW Coeff of Yamile 15.5 H (11.5-14.5) % Plt Count 423 H (130-400) K/uL MPV 10.3 (7.4-10.4) fL Immature Gran % (Auto) 0.2 % Neut % (Auto) 83.7 % Lymph % (Auto) 11.5 % [place] % (Auto) 3.5 % Eos % (Auto) 1.0 % Baso % (Auto) 0.1 % Neut # (Auto) 12.26 H (1.4-6.5) K/uL Lymph # (Auto) 1.69 (1.2-3.4) K/uL [place] # (Auto) 0.51 (0.11-0.59) K/uL Eos # (Auto) 0.14 (0-0.5) K/uL Baso # (Auto) 0.01 (0-0.2) K/uL Immature Gran # (Auto) 0.03 H (0.00-0.02) K/uL PT (9.0-12.0) Seconds INR (0.9-1.1) APTT (21.0-31.0) Seconds PTT Ratio POC Sodium (135-144) mmol/L Sodium 136 (136-145) mmol/L POC Potassium (3.3-5.0) mmol/L Potassium 3.9 (3.5-5.1) mmol/L POC Chloride (101-112) mmol/L Chloride 106 (98-107) mmol/L Carbon Dioxide 23 (21-32) mmol/L POC Total CO2 (24-31) mmol/L Anion Gap 7 (3-11) POC Anion Gap (16-25) mmol/L POC BUN (7-18) mg/dl BUN 14 (6-23) mg/dl Creatinine 0.50 L (0.6-1.2) mg/dl POC Creatinine (0.6-1.3) mg/dl Est Cr Clr Drug Dosing 143.5 ml/min Est GFR ( Amer) 139.3 ml/min Est GFR (Non-Af Amer) 120.2 ml/min BUN/Creatinine Ratio 28.0 H (10-20) Glucose 95 (70-99(Fasting)) mg/dl POC Glucose (other) (70-99) mg/dl Calcium 9.1 (8.5-10.1) mg/dl POC Ioniz Calcium Kyra (1.12-1.32) mmol/l Magnesium (1.7-2.4) mg/dl Total Bilirubin 0.4 (0.2-1.0) mg/dl AST 20 (13-39) U/L ALT 25 (7-52) U/L Alkaline Phosphatase 138 H (34-104) U/L Total Protein 7.4 (6.0-8.3) gm/dl Albumin 4.0 (3.4-5.0) gm/dl Globulin 3.4 (2.5-4.0) gm/dl Albumin/Globulin Ratio 1.2 (0.9-2) Lipase 1321 H (11-82) U/L Urine Color Urine Appearance (Clear) Urine pH (4.5-7.5) Ur Specific [place] (1.000-1.030) Urine Protein (Negative) Urine Glucose (UA) (Negative) Urine Ketones (Negative) Urine Blood (Negative) Urine Nitrite (Negative) Urine Bilirubin (Negative) Urine Urobilinogen (Negative) Ur Leukocyte Esterase (Negative) POC Ur Test (NEG) SARS-CoV-2, RNA, NAAT (NEGATIVE) (1) Pancreatitis Acute pancreatitis complication: unspecified Chronicity: acute Pancreatitis type: unspecified pancreatitis type Qualified Code(s): K85.90 - Acute pancreatitis without necrosis or infection, unspecified
[2021-04-21 12:31] LABS: Partial Thromboplastin Ratio 1.2; Partial Thromboplastin Time 32.4 Seconds (21.0-31.0)
[2021-04-21] MEDS ORDERED: HEPARIN SOD (PORCINE) 1000 UNIT/ML IV ONE (13:15)
[2021-04-21] MEDS: WARFARIN SOD 5 MG TAB PO SCH (17:21)
[2021-04-21] MEDS ORDERED: bisacodyL 5 MG TABEC PO ONE (17:22)
--- NOTE | 2021-04-21 19:40 | Magnetic Resonance Report ---
MRCP CLINICAL HISTORY: Pancreatitis. COMPARISON STUDY: Abdominal CT dated 04/20/2021. TECHNIQUE: Abdominal MRCP is performed utilizing various T2 weighted sequences in the axial and coron al planes. IV contrast was not administered for this examination. 3-D reformats are created and asses sed. Examination is degraded by motion artifact. FINDINGS: The gallbladder wall appears mildly thickened and there is trace pericholecystic fluid. The gallbladd er is not distended, and no gallstones are identified. There is no intra- or extrahepatic biliary gabriel braxton dilatation. The common bile duct measures up to 2 mm in diameter. No intraluminal filling defects are identified to suggest choledocholithiasis. Imaged portions of the pancreatic duct near the ampul la are normal in caliber. The liver is enlarged measuring 20.9 cm in length. There is a small volume of upper abdominal ascites . The unenhanced spleen, adrenal glands, and kidneys are grossly normal. The abdominal aorta is harley l in course and caliber. A cystogastrostomy stent is in place. Gastric wall thickening is observed. T he pancreas appears mildly edematous with surrounding inflammation and fluid. A 2.6 x 2.1 cm fluid co llection is seen medial to the IVC below the diaphragm on axial image #11 and may represent a tiny ps eudocyst. No additional organized fluid collection is clearly identified. A small fluid collection ab ove the body of the pancreas seen by CT is not well-visualized, likely due to complex fluid. Trace pl eural effusions are noted. IMPRESSION: 1. There is no intra- or extrahepatic biliary ductal dilatation. 2. There are no gallstones identified and no evidence of choledocholithiasis. 3. There is evidence of pancreatitis with a cystogastrostomy stent in place. 4. There is a 2.6 cm fluid collection seen medial to the IVC below the diaphragm which may represent a small pseudocyst. 5. Mild pericholecystic fluid is nonspecific and likely related to ascites and pancreatitis. There is no MRI evidence of cholecystitis. Dictated: 04/21/2021 5:32 PM Transcribed: 04/21/2021 6:11 PM Georgina [id number] Electronically signed by: Twin Oglesby M.D. 04/21/2021 7:39 PM
[2021-04-21 23:36] LABS: Partial Thromboplastin Ratio 1.4; Partial Thromboplastin Time 37.4 Seconds (21.0-31.0)
[2021-04-21] MEDS ORDERED: Nursing to Pharmacy Communication SCH (23:45)
[2021-04-22] MEDS ORDERED: Heparin IVP from UFH Protocol (WITH Bolus) IV ONE (00:15)
[2021-04-22] MEDS: LACTATED RINGER'S 1,000 ML IV SCH ×3 (00:49→12:23)
[2021-04-22] MEDS: HEPARIN SODIUM/DEXTROSE 25,000 UNITS/500 ML BAG IV SCH ×3 (03:57→21:02)
[2021-04-22] MEDS: HYDROmorphone INJ 0.5 MG/0.5 ML SYR IV PRN ×3 (04:02→16:06)
[2021-04-22 07:38] LABS: INR 1.2 (0.9-1.1); Partial Thromboplastin Ratio 1.4; Partial Thromboplastin Time 37.2 Seconds (21.0-31.0); Prothrombin Time 12.4 Seconds (9.0-12.0)
--- NOTE | 2021-04-22 07:46 | XRay Report ---
KUB HISTORY: Follow-up ileus COMPARISON: Abdomen and pelvis CT 04/21/2021. FINDINGS: Nonspecific foci of gas within the upper abdomen. No renal calculi. No ureteral calculi. I nterval improvement in the borderline dilated gas-filled loops of bowel within the abdomen. This sugg ests a resolving ileus. There is again noted an intrauterine device within the mid pelvis which is un changed in position. A cystogastrostomy stent is noted within the left upper quadrant. IMPRESSION: 1. Interval improvement in the borderline dilated gas-filled loops of bowel within the abdomen sugges tive of a resolving ileus. 2. A cystogastrostomy stent is again noted within the left upper quadrant. 3. Nonspecific loculated foci of gas within the upper abdomen. Recommend follow-up decubitus views of the abdomen to exclude the possibility of pneumoperitoneum. L4. This report was called/faxed to the referring physician following dictation. ACT 112: Negative or not required by law. Electronically signed by: Marek Hughes M.D. 04/22/2021 7:44 AM
[2021-04-22 07:58] LABS: Albumin Globulin Ratio 1.2 (0.9-2); Albumin Level 2.9 gm/dl (3.4-5.0); BUN Creatinine Ratio 14.9 (10-20); Bilirubin,Total 0.4 mg/dl (0.2-1.0); Creatinine Clr Calc Pharmacy 153.2 ml/min; Est GFR (African American) 142.2 ml/min; Est GFR (Non-African American) 122.7 ml/min; Globulin 2.4 gm/dl (2.5-4.0); Magnesium 1.5 mg/dl (1.7-2.4); Potassium 3.4 mmol/L (3.5-5.1); Total Protein 5.3 gm/dl (6.0-8.3)
[2021-04-22] MEDS ORDERED: HEPARIN SOD (PORCINE) 1000 UNIT/ML IV ONE (08:00)
--- NOTE | 2021-04-22 08:15 | Communication Note ---
Date of Service: April 22, 2021 [facility] reviewed. No urgent intervention indicated. Would recommend clear liquids --> advance as tolerated to low fat. Continue IV LR, analgesia, antiemetics. Keep ERCP as an outpatient as scheduled.Thank you for allowing us to participate in the care of this patient. Please call with any acute changes, questions or concerns. Please see addendum below with additional recommendation from my supervising physician.
[2021-04-22] MEDS: POTASSIUM CHLORIDE / WTR 10 MEQ/100 ML PLCT IV SCH ×2 (08:28→09:35)
[2021-04-22 14:02] LABS: Partial Thromboplastin Ratio 1.7; Partial Thromboplastin Time 44.4 Seconds (21.0-31.0)
[2021-04-22] MEDS: WARFARIN SOD 5 MG TAB PO SCH (16:03)
--- NOTE | 2021-04-22 16:50 | Hospitalist Progress Note ---
Date of Service April 22, 2021 Assessment & Plan (1) Pancreatitis: (2) Alcohol dependence: (3) Portal vein thrombosis: (4) Ileus: Plan: This is a 40 year old female with recurrent pancreatitis, fluid collection s/p EUS w/ axios drainage, outside imaging showing improvement of fluid collection admitted w/ pain returning with recurrent diffuse abdominal pain. CT abd/pelvis with evidence for recurrent pancreatitis with a pseudocyst present within the mid body the pancreas and associated small bowel ileus. Stent has been placed between the stomach and the pancreas Advanced diet to low fat without issue today IV fluids discontinued GI ordered MRCP - No urgent intervention indicated. Keep ERCP as an outpatient as scheduled for next Sunday Small bowel ileus -> resolved Bowel regimen and daily KUB Large bowel movement this morning with resolution of lower abdominal discomfort, resumed diet without issue Portal vein thrombosis Diagnosed as outpatient, had not yet started coumadin. Started last evening with 5mg daily, INR 1.2 today Continue IV heparin for now Will need to hold Coumadin starting Tuesday 04/25 in preparation for ERCP on Sunday, per GI History of alcohol dependence Denies drinking since January DVT Ppx: Coumadin started, continue IV heparin for now Code status: FULL Dispo: Admitted to med/surg Admission and Anticipated Discharge Date Admission Date: April 21, 2021 Supervising Physician Co-Signing Physician Notes Attending addendum The patient was seen and examined in medical floor She has been feeling much better and denies any significant abdominal discomfort and/or pain She has been tolerating diet which will be advanced accordingly Likely discharge tomorrow On examination No apparent distress at rest Hemodynamically stable with blood pressure on the lower side at 96/63 Chest-clear to auscultate bilaterally Heart-S1-S2, regular Abdomen-soft, mildly tender in the epigastrium, also present Extremities-negative for any edema Her labs and imaging studies reviewed Has acute recurrent pancreatitis, status post pancreatic stent placement Will have outpatient reinsertion of the stent as per GI Agree with assessment and plan as outlined above by Rajni Membreno. HOWARD Ceron Subjective Seen and examined in 383-1 for recurrent pancreatitis, fluid collection s/p EUS w/ axios drainage. Also with recent diagnosis of portal vein thrombosis, following with GI. Feeling better today, no abdominal discomfort at rest. No nausea or vomiting, eating ice chips and ready for a diet. No fever, chills, CP, SOB, dysuria or diarrhea. Had a bowel movement this morning. Review of Systems Review of Systems: At least ten systems reviewed and negative except as noted in the HPI. Physical Exam Physical Exam: Gen: WD/WN, NAD, lying in bed, A&Ox3 HEENT: Normocephalic, atraumatic, conjunctivae moist, sclerae anicteric, mucous membranes moist Lung: Clear to Auscultation bilaterally, no wheezes/rales/rhonchi Heart: Regular rate, regular rhythm, no murmurs, rubs, or gallops Abdomen: Soft, NT, ND +BS x 4 Extremities: no edema Skin: Warm, no rash Results & Data Results & Data ([facility]) Vital Signs (Past 12 Hours) Vital Signs Temp Pulse Resp BP Pulse Ox 04/22/21 16:05 36.9 C 82 15 96/63 L 95 04/22/21 07:00 70 15 98/63 L 94 Laboratory Results Short CBC 04/20/21 04/21/21 04/22/21 Range/Units 21:26 05:08 07:04 INR 1.1 1.1 1.2 H (0.9-1.1) BMP 04/22/21 07:04 Sodium 134 L Potassium 3.4 L Chloride 105 Carbon Dioxide 22 BUN 7 Creatinine 0.47 L Glucose 87 Calcium 8.0 L Liver Function 04/22/21 Range/Units 07:04 Total Bilirubin 0.4 (0.2-1.0) mg/dl AST 12 L (13-39) U/L ALT 15 (7-52) U/L Alkaline Phosphatase 105 H (34-104) U/L Albumin 2.9 L (3.4-5.0) gm/dl Diagnostic Findings Abdomen/Pelvis CT 04/20/21 20:28 CT abd pelvis IV con only CLINICAL HISTORY: Right mid to upper abdominal pain. History of pancreatic stent. COMPARISON STUDY: 03/01/2021 CT DOSE: 422.82 mGy.cm TECHNIQUE: Standard CT of the Abdomen and Pelvis was performed with IV contrast. A dose lowering technique was utilized adhering to the principles of ALARA. Contrast Volume: Optiray 320, 92 ml. The patient did not receive oral contrast. FINDINGS: Lung base: The lung bases are clear. Abdominal cavity: There is no evidence for abdominal mass, adenopathy or ascites. There is a stent now present between the stomach and the pancreas. There is an umbilical hernia present with mesenteric fat. This is unchanged. Liver: There is homogeneous attenuation of the liver parenchyma. There is no evidence for enhancing mass lesion. Spleen: There is homogeneous attenuation of the splenic parenchyma. There is no enhancing mass lesion. Pancreas: There is diffuse edema of the pancreas characteristic of pancreatitis. There is a fluid collection seen within the mid body of the pancreas characteristic of a pseudocyst. It measures approximately 2.4 x 2.3 cm. There is edema seen surrounding predominantly the head and body the pancreas. No other focal fluid collections are identified. Gall Bladder: The gallbladder is contracted. Adrenal glands: The adrenal glands are normal in size and attenuation. There is no evidence for enhancing mass lesion. Kidneys: There is homogeneous attenuation of the renal parenchyma bilaterally. There is no evidence for renal calculus or hydronephrosis. There is no evidence for enhancing mass. Bowel: Fluid-filled loops of small bowel are seen throughout the abdomen and pelvis without evidence for disproportionate dilatation or obstruction. The findings are most characteristic of an ileus. There is no evidence for mass lesion. There are no inflammatory changes present. There is no evidence for free air. Bladder: The bladder is within normal limits with no evidence for focal mass, calculus or diverticulum. : There is no evidence for pelvic mass or adenopathy. There is no evidence for pelvic ascites. An IUD is present within the uterus. Cystic changes are seen involving the ovaries bilaterally. There is a 3.4 x 2.6 cm low-attenuation lesion seen in the left groin. It does not appear to represent a lymph node. Follow-up ultrasound is recommended. Vasculature: There is no evidence for aneurysmal dilatation of the abdominal aorta. Osseous structures: There is no acute osseous pathology. IMPRESSION: 1. Evidence for recurrent pancreatitis with a pseudocyst present within the mid body the pancreas. 2. Associated small bowel ileus. 3. Stent has been placed between the stomach and the pancreas. 4. 3.4 cm low-attenuation lesion within the left groin of uncertain etiology. Follow-up ultrasound is recommended for further evaluation. 5. Additional nonacute findings as delineated above. ACT 112: Negative or not required by law. Electronically signed by: Wil Xiao M.D. 04/20/2021 9:37 PM Cholangiopancreatography MRI 04/21/21 09:50 MRCP CLINICAL HISTORY: Pancreatitis. COMPARISON STUDY: Abdominal CT dated 04/20/2021. TECHNIQUE: Abdominal MRCP is performed utilizing various T2 weighted sequences in the axial and coronal planes. IV contrast was not administered for this examination. 3-D reformats are created and assessed. Examination is degraded by motion artifact. FINDINGS: The gallbladder wall appears mildly thickened and there is trace pericholecystic fluid. The gallbladder is not distended, and no gallstones are identified. There is no intra- or extrahepatic biliary ductal dilatation. The common bile duct measures up to 2 mm in diameter. No intraluminal filling defects are identified to suggest choledocholithiasis. Imaged portions of the pancreatic duct near the ampulla are normal in caliber. The liver is enlarged measuring 20.9 cm in length. There is a small volume of upper abdominal ascites. The unenhanced spleen, adrenal glands, and kidneys are grossly normal. The abdominal aorta is normal in course and caliber. A cystogastrostomy stent is in place. Gastric wall thickening is observed. The pancreas appears mildly edematous with surrounding inflammation and fluid. A 2.6 x 2.1 cm fluid collection is seen medial to the IVC below the diaphragm on axial image #11 and may represent a tiny pseudocyst. No additional organized fluid collection is clearly identified. A small fluid collection above the body of the pancreas seen by CT is not well-visualized, likely due to complex fluid. Trace pleural effusions are noted. IMPRESSION: 1. There is no intra- or extrahepatic biliary ductal dilatation. 2. There are no gallstones identified and no evidence of choledocholithiasis. 3. There is evidence of pancreatitis with a cystogastrostomy stent in place. 4. There is a 2.6 cm fluid collection seen medial to the IVC below the diaphragm which may represent a small pseudocyst. 5. Mild pericholecystic fluid is nonspecific and likely related to ascites and pancreatitis. There is no MRI evidence of cholecystitis. Dictated: 04/21/2021 5:32 PM Transcribed: 04/21/2021 6:11 PM Georgina [id number] [facility] Electronically signed by: Twin Oglesby M.D. 04/21/2021 7:39 PM KUB X-Ray 04/22/21 07:00 KUB HISTORY: Follow-up ileus COMPARISON: Abdomen and pelvis CT 04/21/2021. FINDINGS: Nonspecific foci of gas within the upper abdomen. No renal calculi. No ureteral calculi. Interval improvement in the borderline dilated gas-filled loops of bowel within the abdomen. This suggests a resolving ileus. There is again noted an intrauterine device within the mid pelvis which is unchanged in position. A cystogastrostomy stent is noted within the left upper quadrant. IMPRESSION: 1. Interval improvement in the borderline dilated gas-filled loops of bowel within the abdomen suggestive of a resolving ileus. 2. A cystogastrostomy stent is again noted within the left upper quadrant. 3. Nonspecific loculated foci of gas within the upper abdomen. Recommend follow- up decubitus views of the abdomen to exclude the possibility of pneumoperitoneum. L4. This report was called/faxed to the referring physician following dictation. ACT 112: Negative or not required by law. Electronically signed by: Marek Hughes M.D. 04/22/2021 7:44 AM (1) Pancreatitis Acute pancreatitis complication: unspecified Chronicity: acute Pancreatitis type: unspecified pancreatitis type Qualified Code(s): K85.90 - Acute pancreatitis without necrosis or infection, unspecified
[2021-04-22 20:24] LABS: Partial Thromboplastin Ratio 1.6; Partial Thromboplastin Time 42.4 Seconds (21.0-31.0)
[2021-04-22] MEDS: oxyCODONE HCL IR 5 MG TAB (IMMEDIATE RELEASE) PO PRN (21:00)
[2021-04-23] MEDS: oxyCODONE HCL IR 5 MG TAB (IMMEDIATE RELEASE) PO PRN ×3 (03:15→14:41)
[2021-04-23 03:57] LABS: Partial Thromboplastin Ratio 1.9
[2021-04-23 04:01] LABS: Partial Thromboplastin Time 50.8 Seconds (21.0-31.0)
[2021-04-23 07:11] VITALS: TEMP 97.9; O2SAT 93
[2021-04-23 07:22] LABS: Hematocrit (blood only) 30.3 % (37-47); Hemoglobin 9.7 g/dL (12.0-16.0); Mean Corpuscular Hemoglobin 29.3 pg (25-34); Mean Corpuscular Volume 91.5 fL (80-100); Mean Platelet Volume 10.7 fL (7.4-10.4); Platelet Count 318 K/uL (130-400); RDW Coefficient of Variation 15.2 % (11.5-14.5); RDW Standard Deviation 51.6 fL (36.4-46.3); Red Blood Count 3.31 M/uL (4.2-5.4); White Blood Count 5.52 K/uL (4.8-10.8)
[2021-04-23 07:46] LABS: BUN Creatinine Ratio 9.6 (10-20); Calcium 7.9 mg/dl (8.5-10.1); Creatinine Clr Calc Pharmacy 138.5 ml/min; Est GFR (African American) 137.5 ml/min; Est GFR (Non-African American) 118.7 ml/min; Potassium 3.7 mmol/L (3.5-5.1)
[2021-04-23 07:54] LABS: INR 1.6 (0.9-1.1); Partial Thromboplastin Ratio 1.9; Prothrombin Time 15.3 Seconds (9.0-12.0)
[2021-04-23 07:56] LABS: Partial Thromboplastin Time 48.9 Seconds (21.0-31.0)
--- NOTE | 2021-04-23 11:38 | Hospitalist Progress Note ---
Date of Service April 23, 2021 Assessment & Plan (1) Pancreatitis: Plan: Acute recurrent pancreatitis status post pancreatic stent placement in past Was on n.p.o. and intravenous fluid administration Clinically much better without any significant symptoms She has been tolerating regular diet and has been ambulating in the room without any difficulties Appreciate GI input and recommendation. MRI showed: 1. There is no intra- or extrahepatic biliary ductal dilatation. 2. There are no gallstones identified and no evidence of choledocholithiasis. 3. There is evidence of pancreatitis with a cystogastrostomy stent in place. 4. There is a 2.6 cm fluid collection seen medial to the IVC below the diaphragm which may represent a small pseudocyst. 5. Mild pericholecystic fluid is nonspecific and likely related to ascites and pancreatitis. There is no MRI evidence of cholecystitis. She will have repeat ERCP on Sunday as an outpatient She will be discharged home this afternoon (2) Alcohol dependence: Plan: She has not been drinking any for the last 2 months or so (3) Portal vein thrombosis: (4) Ileus: Plan: This is a 40 year old female with recurrent pancreatitis, fluid collection s/p EUS w/ axios drainage, outside imaging showing improvement of fluid collection admitted w/ pain returning with recurrent diffuse abdominal pain. CT abd/pelvis with evidence for recurrent pancreatitis with a pseudocyst present within the mid body the pancreas and associated small bowel ileus. Stent has been placed between the stomach and the pancreas Advanced diet to low fat without issue today IV fluids discontinued GI ordered MRCP - No urgent intervention indicated. Keep ERCP as an outpatient as scheduled for next Sunday Small bowel ileus -> resolved Bowel regimen and daily KUB Large bowel movement this morning with resolution of lower abdominal discomfort, resumed diet without issue Portal vein thrombosis Diagnosed as outpatient, had not yet started coumadin. Started last evening with 5mg daily, INR 1.2 today Continue IV heparin for now Will need to hold Coumadin starting Tuesday 04/25 in preparation for ERCP on Sunday, per GI INR is 1.6 today and she will be discharged home this afternoon She will continue Coumadin as advised but will not take anymore from Sunday as per instruction from apparatus repair mechanic History of alcohol dependence Denies drinking since January DVT Ppx: Coumadin started, continue IV heparin for now Code status: FULL Dispo: Admitted to med/surg She will be discharged home this afternoon Admission and Anticipated Discharge Date Admission Date: April 21, 2021 Subjective 04/23/2021 The patient was seen and examined in medical floor She has been feeling much better and denies any abdominal discomfort, pain, distention and nausea or vomiting She has been tolerating diet and ambulating in the room without any problem She will be discharged home this afternoon Review of Systems Review of Systems: At least ten systems reviewed and negative except as noted in the HPI. Gastrointestinal: Abdominal symptoms Physical Exam Physical Exam: Lying in bed comfortably Constitutional: well developed, well nourished and + obese; not ill appearing Eyes: PERRL, conjunctivae normal, anicteric sclerae ENMT: external ear and nose normal, oropharynx normal Neck: trachea midline, no thyromegaly Respiratory: no respiratory distress Auscultation: lungs clear to auscultation bilaterally Cardiovascular: Rate/Rhythm: regular rate and regular rhythm; not tachycardic Heart Sounds: normal S1 and normal S2; no murmur Extremities: no edema Gastrointestinal (Abdomen): Inspection/Auscultation: normal bowel sounds; abdomen not distended Percussion/Palpation: abdomen soft; abdomen nontender Musculoskeletal: No acute arthritis in any joint Neurologic: Alert, awake and oriented x3. No focal sensory or no motor deficit appreciated Results & Data Results & Data ([facility]) Vital Signs (Past 12 Hours) Vital Signs Temp Pulse Resp BP Pulse Ox 04/23/21 07:10 36.6 C 71 16 94/59 L 93 Laboratory Results Short CBC 04/23/21 Range/Units 06:51 WBC 5.52 (4.8-10.8) K/uL Hgb 9.7 L (12.0-16.0) g/dL Hct 30.3 L (37-47) % Plt Count 318 (130-400) K/uL BMP 04/23/21 06:51 Sodium 134 L Potassium 3.7 Chloride 106 Carbon Dioxide 25 BUN 5 L Creatinine 0.52 L Glucose 98 Calcium 7.9 L Medications Administered Current Inpatient Medications Acetaminophen (Acetaminophen 325 Mg Tab) 650 mg PO Q4H PRN PRN Reason: pain/fever Stop: 05/21/21 04:07 Heparin Sodium/Dextrose (Heparin Sodium/Dextrose) 25,000 units in 500 mls @ 30 mls/hr IV .[id number] [facility]; Protocol Stop: 05/21/21 05:19 Last Titration: 04/23/21 07:20 Dose: 1,500 units/hr, 30 mls/hr Documented by: Ondansetron HCl (Ondansetron Inj 2 Mg/Ml 2 Ml Vial) 4 mg IV Q6H PRN PRN Reason: Nausea Stop: 05/21/21 04:07 Oxycodone HCl (Oxycodone Hcl Ir 5 Mg Tab (Immediate Release)) 5 mg PO Q6H PRN PRN Reason: Pain Stop: 05/06/21 16:45 Last Admin: 04/23/21 09:34 Dose: 5 mg Documented by: Warfarin Sodium (Warfarin Sod 5 Mg Tab) 5 mg PO DAILY@1600 NAOMIE Stop: 05/21/21 15:59 Last Admin: 04/22/21 16:03 Dose: 5 mg Documented by: (1) Pancreatitis Acute pancreatitis complication: unspecified Chronicity: acute Pancreatitis type: unspecified pancreatitis type Qualified Code(s): K85.90 - Acute pancreatitis without necrosis or infection, unspecified
[2021-04-23 11:56] VITALS: BP 120/71; PULSE 77
--- NOTE | 2021-04-24 07:57 | Discharge Summary ---
Date of Service April 24, 2021 Admission HPI Per Admitting Provider DICTATED BY:Andrae Dornates MD DATE OF ADMISSION: 04/21/2021. CHIEF COMPLAINT: Abdominal pain. HISTORY OF PRESENT ILLNESS: This is a 40-year-old female with past medical history significant for pancreatitis, portal vein thrombosis, tobacco use disorder, history of alcoholism, presents with abdominal pain. The patient was recently diagnosed with acute pancreatitis in end of January. The patient states since then she is not drinking any alcohol. She also underwent an upper endoscopic ultrasound and 7 cm pseudocyst was found. A cystogastrostomy was performed using a 10 mm stent. The patient says she is supposed to get stent taken out in the coming week and she also was recently found to have portal vein thrombosis and she was advised to start Coumadin, but the patient has not got the medication yet and today comes back because she is having severe about 6/10 abdominal pain in the right side of the abdomen. Currently after pain medication, the pain is better. Denies any diarrhea or constipation. No blood in stools or black stools. Normal bladder movements. No nausea, no vomiting, no chest pain, no shortness of breath, no cough, no headache, no blurred vision s, no earache, no runny nose, no fevers. Currently, resting comfortably and hemodynamically stable. Lipase was elevated. Admission Exam Per Admitting Provider GENERAL: The patient is of moderate build, not in acute distress. VITAL SIGNS: Temperature 36.8, pulse 87, respiratory rate 16, blood pressure 101/67, oxygen 98% on room air. HEENT: Pupils equal, round and reactive to light. Oral mucosa moist. NECK: No JVD, no neck masses. CARDIOVASCULAR: S1 and S2 heard. Regular rate and rhythm. No murmur, no gallop. RESPIRATORY: Normal AP diameter. No accessory muscle use. No wheezing, no crackles. ABDOMEN: Soft, bowel sounds sluggish. Tenderness in the right upper and lower quadrant. Mild guarding, no rigidity. No distention. CENTRAL NERVOUS SYSTEM: Cranial nerves II through XII are grossly intact, nonfocal. EXTREMITIES: No edema, no erythema. Principal Diagnosis Acute recurrent pancreatitis status post Axios stent for drainage 2-3 weeks ago, history of alcoholism Discharge Exam Lying in bed comfortably Constitutional well developed, well nourished and + obese; not ill appearing Eyes PERRL, conjunctivae normal, anicteric sclerae ENMT external ear and nose normal, oropharynx normal Neck trachea midline, no thyromegaly Respiratory no respiratory distress Auscultation: lungs clear to auscultation bilaterally Cardiovascular Rate/Rhythm: regular rate and regular rhythm; not tachycardic Heart Sounds: normal S1 and normal S2; no murmur Extremities: no edema Gastrointestinal (Abdomen) Inspection/Auscultation: normal bowel sounds; abdomen not distended Percussion/Palpation: abdomen soft; abdomen nontender Discharge Data Allergies Allergy/AdvReac Type Severity Reaction Status Date / Time pollen extracts Allergy Unknown SEASONAL-IT Verified 04/20/21 20:30 KATE Consultations 04/20/21 23:06 ED Decision to Admit Stat 04/21/21 08:00 Consult Gastroenterology Routine Ordered Studies 04/20/21 20:28 CT abd pelvis IV con only Stat 04/21/21 09:50 MR MRCP Routine Hospital Course (1) Pancreatitis: Acute recurrent pancreatitis status post pancreatic stent placement in past Was on n.p.o. and intravenous fluid administration Clinically much better without any significant symptoms She has been tolerating regular diet and has been ambulating in the room without any difficulties Appreciate GI input and recommendation. MRI showed: 1. There is no intra- or extrahepatic biliary ductal dilatation. 2. There are no gallstones identified and no evidence of choledocholithiasis. 3. There is evidence of pancreatitis with a cystogastrostomy stent in place. 4. There is a 2.6 cm fluid collection seen medial to the IVC below the diaphragm which may represent a small pseudocyst. 5. Mild pericholecystic fluid is nonspecific and likely related to ascites and pancreatitis. There is no MRI evidence of cholecystitis. She will have repeat ERCP on Sunday as an outpatient She will be discharged home this afternoon (2) Alcohol dependence: She has not been drinking any for the last 2 months or so (3) Portal vein thrombosis: (4) Ileus: This is a 40 year old female with recurrent pancreatitis, fluid collection s/p EUS w/ axios drainage, outside imaging showing improvement of fluid collection admitted w/ pain returning with recurrent diffuse abdominal pain. CT abd/pelvis with evidence for recurrent pancreatitis with a pseudocyst present within the mid body the pancreas and associated small bowel ileus. Stent has been placed between the stomach and the pancreas Advanced diet to low fat without issue today IV fluids discontinued GI ordered MRCP - No urgent intervention indicated. Keep ERCP as an outpatient as scheduled for next Sunday Small bowel ileus -> resolved Bowel regimen and daily KUB Large bowel movement this morning with resolution of lower abdominal discomfort, resumed diet without issue Portal vein thrombosis Diagnosed as outpatient, had not yet started coumadin. Started last evening with 5mg daily, INR 1.2 today Continue IV heparin for now Will need to hold Coumadin starting Tuesday 04/25 in preparation for ERCP on Sunday, per GI INR is 1.6 today and she will be discharged home this afternoon She will continue Coumadin as advised but will not take anymore from Sunday as per instruction from blasting entryman History of alcohol dependence Denies drinking since January DVT Ppx: Coumadin started, continue IV heparin for now Code status: FULL Dispo: Admitted to med/surg She will be discharged home this afternoon Total Time Total Time Spent Total Time Spent (In Minutes): 35 minutes Discharge Plan Discharge Items Patient Disposition: Home - Self-Care Reason For Visit: ABD PAIN Discharge Diagnosis: Acute recurrent pancreatitis status post Axios stent for drainage 2-3 weeks ago, history of alcoholism Condition on Discharge: Fair Activity: Resume your previous activity Non-emergency contact: Primary Care Provider Call non-emergency contact if: you have any medication questions and your symptoms worsen Follow-up/Referrals: Evette Velázquez PA-C [Primary Care Provider] - (Your doctor's office will call you with an appointment within 1 week) Diet: Low Fat Addtl Attending Provider Instructions: Please take precautions to avoid fall Do not use any more alcohol Keep taking your Coumadin as advised but stop taking from Sunday to have the ERCP done on Sunday as scheduled Resume Coumadin after the procedure as per instructions from GI Please keep appointments with your healthcare providers You can try Tylenol 2 extra strength every 8 hours as needed for pain and avoid any NSAID's as you are on Coumadin Your INR should be monitored by the coagulation clinic Pending Studies at Discharge: No Stand-Alone Forms: [employer], Work/School Release, Smoking Cessation Medications and DC Order Prescriptions: Continued Mirena 20 mcg/24 hours (7 yrs) 52 mg intrauterine device 1 insert INTRAUTERINE CONTINOUS RF: 0 warfarin 5 mg tablet 5 mg PO DAILY RF: 0 Discharge Orders: Discharge Order (Routine); Ordered 04/23/21 Ordered By: Jorge Davis/Other Patient Handouts: What to Know When TakingWarfarin Admission Data Admit Date/Time: 04/21/21 04:07 Attending Provider: Jorge Ceron Admit Provider: Andrae Dorantes Primary Care Provider: Evette Velázquez Other Providers: Andrae Dorantes ; Jaqueline Katz ; Eladia Orosco ; Laura Newberry ; Zari Taylor ; Thom Frazier ; Dre Paez ; Dominga Kaiser ; Vitaly Grajeda ; Leslee Arellano ; Cortney Gutierrez ; Arianna Cain ; Kellie Trevino ; Sheela Sommers ; Rajni Membreno Other Interventions: Discharge Summary Assessment (RN) Last Done: 04/23/21 11:54
== END 2021-04-23 14:57 | disposition home or self-care (01) | DRG 438 ==
LOC: ED 19:58 → 3N 04-21 03:47
DX: Z79.01 Long term (current) use of anticoagulants; F10.21 Alcohol dependence, in remission; K76.0 Fatty (change of) liver, not elsewhere classified; Z96.89 Presence of other specified functional implants; R16.0 Hepatomegaly, not elsewhere classified; Z87.891 Personal history of nicotine dependence; K85.20 Alcohol induced acute pancreatitis without necrosis or infection; K56.7 Ileus, unspecified; I81 Portal vein thrombosis

== ENCOUNTER 2021-07-28 18:30 | Inpatient (IN) ==
[2021-07-28 19:48] LABS: Hemoglobin 16.5 g/dL (12.0-16.0); Mean Corpuscular Hemoglobin 29.3 pg (25-34); Mean Corpuscular Hgb Conc 33.7 g/dL (32-36); Mean Corpuscular Volume 86.9 fL (80-100); Mean Platelet Volume 9.9 fL (7.4-10.4); Platelet Count 446 K/uL (130-400); RDW Standard Deviation 54.4 fL (36.4-46.3); Red Blood Count 5.64 M/uL (4.2-5.4); White Blood Count 15.03 K/uL (4.8-10.8)
[2021-07-28 20:26] LABS: Basophils # (auto) 0.01 K/uL (0-0.2); Basophils % (auto) 0.1 %; Eosinophils # (auto) 0.19 K/uL (0-0.5); Eosinophils % (auto) 1.3 %; Immature Granulocytes # (auto) 0.04 K/uL (0.00-0.02); Immature Granulocytes % (auto) 0.3 %; Lymphocytes # (auto) 2.35 K/uL (1.2-3.4); Lymphocytes % (auto) 15.6 %; Monocytes % (auto) 5.3 %; Neutrophils # (auto) 11.64 K/uL (1.4-6.5); Neutrophils % (auto) 77.4 %
[2021-07-28 20:51] LABS: Alanine Aminotransferase 23 U/L (7-52); Albumin Globulin Ratio 1.2 (0.9-2); Albumin Level 4.3 gm/dl (3.4-5.0); Alkaline Phosphatase 164 U/L (34-104); Anion Gap 9 (3-11); Bilirubin,Total 0.6 mg/dl (0.2-1.0); Blood Urea Nitrogen 11 mg/dl (6-23); Calcium 9.8 mg/dl (8.5-10.1); Carbon Dioxide 26 mmol/L (21-32); Chloride 100 mmol/L (98-107); Creatinine Clr Calc Pharmacy 115.1 ml/min; Est GFR (African American) 131.8 ml/min; Est GFR (Non-African American) 113.7 ml/min; Globulin 3.6 gm/dl (2.5-4.0); Glucose 108 mg/dl (70-99(Fasting)); Lipase 962 U/L (11-82); Sodium 135 mmol/L (136-145); Total Protein 7.9 gm/dl (6.0-8.3)
[2021-07-28] MEDS ORDERED: MoRPHine SULFATE 4 MG/ML 1 ML CARP\\VIAL IV STA ×2 (20:53→22:26)
[2021-07-28] MEDS ORDERED: ONDANSETRON INJ 2 MG/ML 2 ML VIAL IV STA (20:53)
[2021-07-28] MEDS ORDERED: SODIUM CHLORIDE 0.9% 1000ML 500 ML IV ONE (20:54)
--- NOTE | 2021-07-28 21:01 | Emergency Department Note ---
Impression & Plan Pancreatitis, Elevated INR, Acute UTI ED Provider Note Provider: Ayden Garcia MD DATE OF SERVICE: 07/28/2021 CHIEF COMPLAINT: Abdominal pain and back pain HISTORY OF PRESENT ILLNESS: Patient is a 81-year-old female history of pancreatitis and portal venous thrombus currently on Coumadin presenting here today reporting developing last night into today abdominal pain predominantly mid to mid back pain. No trauma reported. No radiation the pain down the legs. Denies URI symptoms or fever or chills. States he maybe feels a bit nauseous. Feels a little bit similar to prior pancreatitis but not entirely. States her urine is been a little bit off this week. Had a flare of a little bit of pain over the weekend was able to push through it. Patient denies significant chest discomfort at this time. She states been taking her Coumadin as directed. REVIEW OF SYSTEMS: A total of 10 review of systems was obtained and negative except as stated above in the HPI. 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 NECK: Trachea midline. Supple. ENT: Mucous membranes pink and moist. LUNGS: Airway patent. No retractions. Breath sounds clear HEART: Regular rate and rhythm. No chest wall tenderness ABDOMEN: Soft with minimal tenderness, without guarding or rebound. SKIN: Acyanotic, warm, dry, without rashes EXTREMITIES: Without swelling, tenderness or deformity NEUROLOGICAL: No focal deficits in all extremities No aphasia. No facial droop or slurred speech. EK beats. Normal sinus rhythm. No PVC or PAC. No acute ST segment elevation or depression. QTc 430. Normal axis. Patient's laboratory studies and imaging reviewed. Differential includes Appendicitis, ovarian cyst, ovarian torsion, ectopic , TOA, PID, infections, diverticulitis, UTI, obstruction, mesenteric ischemia, aortic pathology, inflammatory bowel disease, renal colic, PUD, pancreatitis, biliary pathology, hernia, volvulus, constipation, as well as other pathologies. IMPRESSION/MEDICAL DECISION MAKIN-year-old female history of pancreatitis and portal vein thrombus. Patient with developing back and abdominal pain overnight and today. No trauma reported. No numbness or weakness in lower extremities or sciatica symptoms. Doubt this is spinal in relation. Basic labs obtained. Blood work does show a leukocytosis of 15. Alkaline phosphatase mildly elevated 164 although lipase is significantly elevated 962. Negative test. Doubt this is cardiac in nature. Treat symptomatically with some IV fluids and pain medication. CT scan of the abdomen pelvis was obtained and reviewed report. Decreasing size of pseudocyst. Questionable gastritis on imaging and as such given given some Pe pcid and Protonix here but she does not relate a history concerning for GI bleed at this time. Urinalysis questionable for infection. Given this given IV ceftriaxone. INR elevated will need to hold warfarin. Do not see evidence of significant active bleeding at this time. Given her evidence of pancreatitis with elevated INR and possible UTI and symptoms will recommend further care here at the hospital. Hospitalist contacted. Believe her back pain is likely related to the pancreatitis. DIAGNOSIS: Pancreatitis, elevated INR, acute UTI DISPOSITION: Hospitalist will evaluate Patient was agreeable with this plan. Preliminary Findings Only See Final Report For Complete Findings CT ABDOMEN & PELVIS With Contrast: Comparison is made to CT abdomen/pelvis on 03/24/2021 and 04/20/2021. Wall thickening of the stomach is concerning for gastritis. Component of neoplasm would be difficult to exclude. Decreased prominence of the previously visualized pancreatic pseudocysts. Small amount of fluid in the abdomen and moderate fluid in the pelvis. Left inguinal hernia containing fat and fluid. Mild prominence of the wall of the distal transverse colon, descending colon, and sigmoid colon may be secondary to under distention. Component of colitis is difficult to exclude. Fluid and gas-filled small bowel loops with possible wall thickening of small bowel loops in the left abdomen could represent enteritis. Cyst in the caudate lobe. Small splenule. Hyperdense pituitary the gallbladder may represent artifact versus stones/sludge. No hydronephrosis or obstructing stone. Mild scarring in the right kidney. Hypodense structure in the right adnexa could be further evaluated with ultrasound if clinically indicated. Intrauterine device in appropriate position. Underdistended bladder limits evaluation. Small fat-containing fluid containing umbilical hernia. Hepatomegaly versus Akin's lobe configuration. Radiologist: Tania Peralta M.D. Study ready at 21:43 and initial results transmitted at 22:01 Past Med/Surg History Medical History (Updated 07/28/21 @ 22:28 by Ayden Garcia M.D.) Acute pancreatitis Alcohol dependence Ileus Pancreatitis Tobacco abuse Surgical History (Updated 03/01/21 @ 10:38 by Silva Massey PA-C) History of dental surgery Family History (Updated 03/01/21 @ 10:38 by Silva Massey PA-C) Father Hypertension Mother Rheumatoid arthritis Social History (Updated 03/01/21 @ 10:39 by Silva Massey PA-C) Smoking Status: Current every day smoker Tobacco Type: Cigarettes packs per day: 1; Years Smoked: 20; Second Hand Exposure: No; Hx Alcohol Use: Yes Alcohol type: beer Alcohol type Comment: 4-5 shots; 4-5 x/wk Alcohol Intake Frequency: 4 or More x per/Week Hx Substance Use: Yes Last Used Substance Other:: "Years ago" according to patient. Preferred Language: Filipino Communication Ability: Effective Car Stereo Installer Required: No Beliefs That Will Affect Care: None marital status: Current Living Situation: Spouse Feels Safe at Home: Yes Assistive Devices: None Allergies Allergies Allergy/AdvReac Type Severity Reaction Status Date / Time pollen extracts Allergy Intermediate SEASONAL-IT Verified 07/28/21 21:26 KATE Home Meds Home Medications Medication Instructions Recorded Confirmed levonorgestrel 20 mcg/24 hours (7 1 insert INTRAUTERINE CONTINOUS 04/20/21 07/28/21 yrs) 52 mg intrauterine device (Mirena) warfarin 5 mg tablet See Rx Instructions .ROUTE .COMPLEX 04/20/21 07/28/21 Results & Data (ED) Vital Signs Vital Signs - 24 hr 07/28/21 18:30 07/28/21 18:46 07/28/21 22:00 Temperature 36.9 C Temperature Source Temporal Artery Scan Pulse Rate 93 H Pulse Rate [Right] 85 87 Pulse Rhythm Regular Pulse Strength Normal Respiratory Rate 18 18 16 Respiratory Effort / Characteristics Non-Labored Spontaneous Respiratory Depth Normal Respiratory Pattern Regular Blood Pressure 133/91 Blood Pressure [Right Arm] 140/79 138/75 Blood Pressure Mean 105 Blood Pressure Mean [Right Arm] 99 96 Blood Pressure Position Sitting Pulse Oximetry 95 97 95 Oxygen Delivery Method Room Air Sepsis Recent Fever Within 48 Hours No Sepsis New/Unexplained Change in Mental Status N/A Sepsis Action Taken by Nursing No Action Required Laboratory Data Result diagrams: 07/28/21 19:30 07/28/21 20:57 Lab Results 07/28/21 07/28/21 07/28/21 Range/Units 19:30 19:30 19:30 WBC 15.03 H (4.8-10.8) K/uL RBC 5.64 H (4.2-5.4) M/uL Hgb 16.5 H (12.0-16.0) g/dL Hct 49.0 H (37-47) % MCV 86.9 (80-100) fL MCH 29.3 (25-34) pg MCHC 33.7 (32-36) g/dL RDW Std Deviation 54.4 H (36.4-46.3) fL RDW Coeff of Yamile 17.0 H (11.5-14.5) % Plt Count 446 H (130-400) K/uL MPV 9.9 (7.4-10.4) fL Immature Gran % (Auto) 0.3 % Neut % (Auto) 77.4 % Lymph % (Auto) 15.6 % [place] % (Auto) 5.3 % Eos % (Auto) 1.3 % Baso % (Auto) 0.1 % Neut # (Auto) 11.64 H (1.4-6.5) K/uL Lymph # (Auto) 2.35 (1.2-3.4) K/uL [place] # (Auto) 0.80 H (0.11-0.59) K/uL Eos # (Auto) 0.19 (0-0.5) K/uL Baso # (Auto) 0.01 (0-0.2) K/uL Immature Gran # (Auto) 0.04 H (0.00-0.02) K/uL PT (9.0-12.0) Seconds INR (0.9-1.1) Sodium 135 L (136-145) mmol/L Potassium TNP Chloride 100 (98-107) mmol/L Carbon Dioxide 26 (21-32) mmol/L Anion Gap 9 (3-11) BUN 11 (6-23) mg/dl Creatinine 0.58 L (0.6-1.2) mg/dl Est Cr Clr Drug Dosing 115.1 ml/min Est GFR ( Amer) 131.8 ml/min Est GFR (Non-Af Amer) 113.7 ml/min BUN/Creatinine Ratio 19.0 (10-20) Glucose 108 H (70-99(Fasting)) mg/dl Calcium 9.8 (8.5-10.1) mg/dl Magnesium (1.7-2.4) mg/dl Total Bilirubin 0.6 (0.2-1.0) mg/dl AST TNP ALT 23 (7-52) U/L Alkaline Phosphatase 164 H (34-104) U/L Troponin I High Sens (0-14) pg/ml Total Protein 7.9 (6.0-8.3) gm/dl Albumin 4.3 (3.4-5.0) gm/dl Globulin 3.6 (2.5-4.0) gm/dl Albumin/Globulin Ratio 1.2 (0.9-2) Lipase 962 H (11-82) U/L Urine Color Urine Appearance (Clear) Urine pH (4.5-7.5) Ur Specific [place] (1.000-1.030) Urine Protein (Negative) Urine Glucose (UA) (Negative) Urine Ketones (Negative) Urine Blood (Negative) Urine Nitrite (Negative) Urine Bilirubin (Negative) Urine Urobilinogen (Negative) Ur Leukocyte Esterase (Negative) Urine WBC (Auto) (0-5) /hpf Urine RBC (Auto) (0-4) /hpf U Hyaline Cast (Auto) (0-5) /lpf U Epithel Cells (Auto) (0-5) /lpf Urine Bacteria (Auto) (Negative) Urine Mucus (None Prsent) POC Ur Test NEG (NEG) SARS-CoV-2, RNA, NAAT (NEGATIVE) 07/28/21 07/28/21 07/28/21 Range/Units 19:30 20:57 20:57 WBC (4.8-10.8) K/uL RBC (4.2-5.4) M/uL Hgb (12.0-16.0) g/dL Hct (37-47) % MCV (80-100) fL MCH (25-34) pg MCHC (32-36) g/dL RDW Std Deviation (36.4-46.3) fL RDW Coeff of Yamile (11.5-14.5) % Plt Count (130-400) K/uL MPV (7.4-10.4) fL Immature Gran % (Auto) % Neut % (Auto) % Lymph % (Auto) % [place] % (Auto) % Eos % (Auto) % Baso % (Auto) % Neut # (Auto) (1.4-6.5) K/uL Lymph # (Auto) (1.2-3.4) K/uL [place] # (Auto) (0.11-0.59) K/uL Eos # (Auto) (0-0.5) K/uL Baso # (Auto) (0-0.2) K/uL Immature Gran # (Auto) (0.00-0.02) K/uL PT 69.4 H (9.0-12.0) Seconds INR 7.3 H* (0.9-1.1) Sodium (136-145) mmol/L Potassium 3.7 Chloride (98-107) mmol/L Carbon Dioxide (21-32) mmol/L Anion Gap (3-11) BUN (6-23) mg/dl Creatinine (0.6-1.2) mg/dl Est Cr Clr Drug Dosing ml/min Est GFR ( Amer) ml/min Est GFR (Non-Af Amer) ml/min BUN/Creatinine Ratio (10-20) Glucose (70-99(Fasting)) mg/dl Calcium (8.5-10.1) mg/dl Magnesium 1.8 (1.7-2.4) mg/dl Total Bilirubin (0.2-1.0) mg/dl AST 13 ALT (7-52) U/L Alkaline Phosphatase (34-104) U/L Troponin I High Sens 3.7 (0-14) pg/ml Total Protein (6.0-8.3) gm/dl Albumin (3.4-5.0) gm/dl Globulin (2.5-4.0) gm/dl Albumin/Globulin Ratio (0.9-2) Lipase (11-82) U/L Urine Color Dark Yellow Urine Appearance Cloudy A (Clear) Urine pH 5.5 (4.5-7.5) Ur Specific [place] 1.038 H (1.000-1.030) Urine Protein 1+ H (Negative) Urine Glucose (UA) Negative (Negative) Urine Ketones Trace H (Negative) Urine Blood 3+ H (Negative) Urine Nitrite Positive A (Negative) Urine Bilirubin 1+ H (Negative) Urine Urobilinogen Negative (Negative) Ur Leukocyte Esterase 1+ H (Negative) Urine WBC (Auto) >30 H (0-5) /hpf Urine RBC (Auto) 5-10 H (0-4) /hpf U Hyaline Cast (Auto) 0 (0-5) /lpf U Epithel Cells (Auto) >30 H (0-5) /lpf Urine Bacteria (Auto) 4+ H (Negative) Urine Mucus Present A (None Prsent) POC Ur Test (NEG) SARS-CoV-2, RNA, NAAT (NEGATIVE) 07/28/21 Range/Units 21:35 WBC (4.8-10.8) K/uL RBC (4.2-5.4) M/uL Hgb (12.0-16.0) g/dL Hct (37-47) % MCV (80-100) fL MCH (25-34) pg MCHC (32-36) g/dL RDW Std Deviation (36.4-46.3) fL RDW Coeff of Yamile (11.5-14.5) % Plt Count (130-400) K/uL MPV (7.4-10.4) fL Immature Gran % (Auto) % Neut % (Auto) % Lymph % (Auto) % [place] % (Auto) % Eos % (Auto) % Baso % (Auto) % Neut # (Auto) (1.4-6.5) K/uL Lymph # (Auto) (1.2-3.4) K/uL [place] # (Auto) (0.11-0.59) K/uL Eos # (Auto) (0-0.5) K/uL Baso # (Auto) (0-0.2) K/uL Immature Gran # (Auto) (0.00-0.02) K/uL PT (9.0-12.0) Seconds INR (0.9-1.1) Sodium (136-145) mmol/L Potassium Chloride (98-107) mmol/L Carbon Dioxide (21-32) mmol/L Anion Gap (3-11) BUN (6-23) mg/dl Creatinine (0.6-1.2) mg/dl Est Cr Clr Drug Dosing ml/min Est GFR ( Amer) ml/min Est GFR (Non-Af Amer) ml/min BUN/Creatinine Ratio (10-20) Glucose (70-99(Fasting)) mg/dl Calcium (8.5-10.1) mg/dl Magnesium (1.7-2.4) mg/dl Total Bilirubin (0.2-1.0) mg/dl AST ALT (7-52) U/L Alkaline Phosphatase (34-104) U/L Troponin I High Sens (0-14) pg/ml Total Protein (6.0-8.3) gm/dl Albumin (3.4-5.0) gm/dl Globulin (2.5-4.0) gm/dl Albumin/Globulin Ratio (0.9-2) Lipase (11-82) U/L Urine Color Urine Appearance (Clear) Urine pH (4.5-7.5) Ur Specific [place] (1.000-1.030) Urine Protein (Negative) Urine Glucose (UA) (Negative) Urine Ketones (Negative) Urine Blood (Negative) Urine Nitrite (Negative) Urine Bilirubin (Negative) Urine Urobilinogen (Negative) Ur Leukocyte Esterase (Negative) Urine WBC (Auto) (0-5) /hpf Urine RBC (Auto) (0-4) /hpf U Hyaline Cast (Auto) (0-5) /lpf U Epithel Cells (Auto) (0-5) /lpf Urine Bacteria (Auto) (Negative) Urine Mucus (None Prsent) POC Ur Test (NEG) SARS-CoV-2, RNA, NAAT NEGATIVE (NEGATIVE) Administered Medications Discontinued Medications Sodium Chloride (Nss 1000ml) 500 mls @ 999 mls/hr IV .Q31M ONE Stop: 07/28/21 21:24 Last Admin: 07/28/21 21:21 Dose: 999 mls/hr Documented by: [id number] Ceftriaxone Sodium (Rocephin) 1,000 mg in 50 mls @ 100 mls/hr IV NOW STA Stop: 07/28/21 22:46 Last Admin: 07/28/21 22:50 Dose: 100 mls/hr Documented by: [id number] Famotidine (Pepcid 20mg Iv Push) 20 mg in 5 mls @ 2.5 mls/min IV NOW STA Stop: 07/28/21 22:18 Last Admin: 07/28/21 22:51 Dose: 2.5 mls/min Documented by: [id number] Admin: 07/28/21 22:51 Dose: 2.5 mls/min Documented by: [id number] Pantoprazole Sodium 40 mg/ (Syringe) 10 mls @ 5 mls/min IV NOW ONE Stop: 07/28/21 22:18 Last Admin: 07/28/21 22:51 Dose: 5 mls/min Documented by: [id number] Ioversol (Optiray 320 100ml) 92 ml IV ONCE ONE Stop: 07/28/21 21:30 Last Admin: 07/28/21 21:30 Dose: 92 ml Documented by: [id number] Morphine Sulfate (Morphine Sulfate 4 Mg/Ml 1 Ml Carp\\Vial) 4 mg IV NOW STA Stop: 07/28/21 20:54 Last Admin: 07/28/21 21:20 Dose: 4 mg Documented by: [id number] Morphine Sulfate (Morphine Sulfate 4 Mg/Ml 1 Ml Carp\\Vial) 4 mg IV NOW STA Stop: 07/28/21 22:27 Last Admin: 07/28/21 22:52 Dose: 4 mg Documented by: [id number] Ondansetron HCl (Ondansetron Inj 2 Mg/Ml 2 Ml Vial) 4 mg IV NOW STA Stop: 07/28/21 20:54 Last Admin: 07/28/21 21:20 Dose: 4 mg Documented by: [id number] Discharge Plan Visit Data Chief Complaint: Abdominal Pain Stated Complaint: BACK PAIN, ABDOMINAL PAIN ED Provider: Ayden Garcia Discharge Problem: Pancreatitis, Elevated INR, Acute UTI Patient Disposition: Being Evaluated by Hospitalist Forms Stand Alone Forms: [facility] Prescriptions Prescriptions: No Action Mirena 20 mcg/24 hours (7 yrs) 52 mg intrauterine device 1 insert INTRAUTERINE CONTINOUS RF: 0 warfarin 5 mg tablet See Rx Instructions .ROUTE .COMPLEX RF: 0 Referrals Referrals: Evette Velázquez PA-C [Primary Care Provider] - Discharge Problem: Pancreatitis Qualifiers: Chronicity: acute Pancreatitis type: unspecified pancreatitis type Acute pancreatitis complication: no infection or necrosis Qualified Code(s): K85.90 - Acute pancreatitis without necrosis or infection, unspecified
[2021-07-28 21:22] LABS: Appearance Urine Cloudy (Clear); Bacteria Urine Automated 4+ (Negative); Blood Urine 3+ (Negative); Color Urine Dark Yellow; Epithelial Cell Urine Auto >30 /lpf (0-5); Glucose Urine UA Negative (Negative); Ketones Urine Trace (Negative); Leukocyte Esterase Urine 1+ (Negative); Nitrite Urine Positive (Negative); Protein Urine 1+ (Negative); Specific Gravity Urine 1.038 (1.000-1.030); Urobilinogen Urine Negative (Negative); WBC Urine Automated >30 /hpf (0-5); pH Urine 5.5 (4.5-7.5)
[2021-07-28 21:26] LABS: Bilirubin Urine 1+ (Negative)
[2021-07-28] MEDS ORDERED: OPTIRAY 320 100ml IV ONE (21:29)
[2021-07-28 21:30] LABS: Magnesium 1.8 mg/dl (1.7-2.4); Potassium 3.7 mmol/L (3.5-5.1)
[2021-07-28 21:32] LABS: Prothrombin Time 69.4 Seconds (9.0-12.0)
[2021-07-28 21:36] LABS: Troponin I High Sensitivity 3.7 pg/ml (0-14)
[2021-07-28 21:41] LABS: INR 7.3 (0.9-1.1)
[2021-07-28 21:47] LABS: Cast Urine Automated 0 /lpf (0-5); Mucus Urine Present (None Prsent)
[2021-07-28] MEDS ORDERED: cefTRIAXone SODIUM 1,000 MG/50 ML BAG IV STA (22:17)
[2021-07-28] MEDS ORDERED: PANTOprazole 40 MG in SYRINGE 0 ML IV ONE (22:17)
[2021-07-28] MEDS: FAMOTIDINE 20MG IV PUSH 20 MG/5 ML SYR IV STA (22:51)
[2021-07-28] MEDS ORDERED: PHYTONADIONE 5 MG TAB PO STA (23:34)
[2021-07-29] MEDS ORDERED: ACETAMINOPHEN 325 MG TAB PO PRN (00:35)
[2021-07-29] MEDS ORDERED: POLYETHYLENE (MIRALAX) 17 GM PACK PO PRN (00:35)
[2021-07-29] MEDS ORDERED: ONDANSETRON INJ 2 MG/ML 2 ML VIAL IV PRN (00:35)
--- NOTE | 2021-07-29 01:17 | History and Physical Report ---
DATE OF ADMISSION: 07/28/2021. CHIEF COMPLAINT: Abdominal pain. HISTORY OF PRESENT ILLNESS: A 41-year-old female with past medical history significant for pancreatitis, history of pseudocyst, status post cystogastrostomy and stent placement, stent currently removed; history of portal vein thrombosis, on Coumadin; ongoing tobacco abuse; history of alcoholism. Presents with abdominal pain. The patient states since last January when she had pancreatitis, she stopped drinking alcohol regularly, but once in a while here and there she drinks, but not on a regular basis. She smokes half pack of cigarettes daily. She is having ongoing back pain for the last 1 month, following with chiropractor. Today again, she developed abdominal pain, severe in nature, 9/10 in severity, associated with nausea, no vomiting, which prompted her to come to the ER. Currently, with pain medication the pain is improved. Today she moved didn't moved her bowels. Her urine is dark for the last 1 week, but denies any blood in the urine. No burning micturition or frequent urination. No swelling in the legs. No chest pain, no shortness of breath, no cough, no difficulty swallowing. Appetite is otherwise okay. States she did not eat anything today because of her pain. Denies any headache. No blurred visions, no earache, no runny nose, no sore throat. Currently, resting comfortably and hemodynamically stable. ALLERGIES: POLLEN EXTRACTS. PAST MEDICAL HISTORY: As mentioned above. PAST SURGICAL HISTORY: Dilatation and curettage, EGD, EGD with endoscopic ultrasound. MEDICATIONS: The patient is on Coumadin 5 mg as directed, Mirena 20 mcg 24 hours IUD. FAMILY HISTORY: Significant for mother has arthritis, father has hypertension. SOCIAL HISTORY: Smokes half pack a day. Currently, drinks only rarely. No drug use. REVIEW OF SYSTEMS: As per HPI. Rest of review of systems is negative. PHYSICAL EXAMINATION: GENERAL: The patient is of moderate build, not in acute distress. VITAL SIGNS: Temperature 36.9, pulse 87, respiratory rate 16, blood pressure 130/75, oxygen 95% on room air. HEENT: Pupils equal, round and reactive to light. Oral mucosa dry. NECK: No JVD, no neck masses. CARDIOVASCULAR: S1 and S2 heard. Regular rate and rhythm. No murmur, no gallop. RESPIRATORY SYSTEM: Normal AP diameter. No accessory muscle use. No wheezing, no crackles. ABDOMEN: Soft, bowel sounds present, nontender, no distention. CENTRAL NERVOUS SYSTEM: Cranial nerves II through XII are grossly intact, nonfocal. EXTREMITIES: No edema, no erythema. LABORATORY DATA: WBC 15, hemoglobin 16.5, hematocrit 49, platelets 446. PT 69.4, INR 7.3. Sodium 135, potassium 3.7, chloride 100, bicarbonate 26, BUN 11, creatinine 0.5, serum glucose 108, calcium 9.8, magnesium 1.8, total bilirubin 0.6, AST 13, ALT 23, alkaline phosphatase 164. Troponin I high sensitivity 3.7. Lipase 962. Urinalysis, +1 protein, +3 blood, urine nitrite positive, leukocyte esterase +1 positive, bacteria 4+ positive. Urine test negative. SARS-CoV-2 rapid test negative. IMAGING DATA: CT abdomen and pelvis preliminary report, gastritis. EKG: Normal sinus rhythm at a rate of 91, no acute ST changes seen. ASSESSMENT AND PLAN: This is a 41-year-old female who presents with abdominal pain. 1. Abdominal pain: Possible recurrent pancreatitis. Lipase elevated at 962, follow the final report of the CAT scan. will do aggressive fluids with normal saline at 200 mL per hour, IV Dilaudid p.r.n., IV Pepcid for possible gastritis. Keep her n.p.o. Monitor in the medical floor. Consult GI in the a.m. 2. Urinary tract infection: Getting Rocephin. Follow the cultures. 3. Chronic back pain: Follow up as outpatient. 4. History of portal vein thrombus: On Coumadin. INR is supratherapeutic at 7.3. We gave vitamin K 2.5, follow the PT/INR. 5. Ongoing tobacco abuse: Needs counseling. 6. Deep venous thrombosis prophylaxis: INR supratherapeutic. DISPOSITION: Closely monitor in the medical floor. PT/OT prior to discharge. Social service to help with discharge planning. Job ID: [id number]
[2021-07-29] MEDS: HYDROmorphone INJ 0.5 MG/0.5 ML SYR IV PRN ×6 (01:41→23:01)
[2021-07-29] MEDS: SODIUM CHLORIDE 0.9% 1000ML 1,000 ML IV SCH ×2 (01:41→05:44)
[2021-07-29 06:48] LABS: Hematocrit (blood only) 44.4 % (37-47); Hemoglobin 14.6 g/dL (12.0-16.0); Mean Corpuscular Hgb Conc 32.9 g/dL (32-36); Mean Corpuscular Volume 88.1 fL (80-100); Mean Platelet Volume 10.3 fL (7.4-10.4); Platelet Count 354 K/uL (130-400); RDW Coefficient of Variation 17.2 % (11.5-14.5); RDW Standard Deviation 55.5 fL (36.4-46.3); Red Blood Count 5.04 M/uL (4.2-5.4); White Blood Count 11.57 K/uL (4.8-10.8)
[2021-07-29 07:11] LABS: Basophils # (auto) 0.01 K/uL (0-0.2); Basophils % (auto) 0.1 %; Eosinophils # (auto) 0.18 K/uL (0-0.5); Eosinophils % (auto) 1.6 %; Immature Granulocytes # (auto) 0.05 K/uL (0.00-0.02); Immature Granulocytes % (auto) 0.4 %; Lymphocytes # (auto) 1.94 K/uL (1.2-3.4); Lymphocytes % (auto) 16.8 %; Monocytes # (auto) 0.89 K/uL (0.11-0.59); Monocytes % (auto) 7.7 %; Neutrophils % (auto) 73.4 %
[2021-07-29 07:19] LABS: Albumin Level 3.5 gm/dl (3.4-5.0); BUN Creatinine Ratio 15.8 (10-20); Bilirubin Direct 0.1 mg/dl (0-0.2); Bilirubin,Total 0.4 mg/dl (0.2-1.0); Calcium 8.6 mg/dl (8.5-10.1); Creatinine Clr Calc Pharmacy 120.4 ml/min; Est GFR (African American) 132.5 ml/min; Est GFR (Non-African American) 114.3 ml/min; Magnesium 1.7 mg/dl (1.7-2.4); Potassium 3.7 mmol/L (3.5-5.1); Total Protein 6.3 gm/dl (6.0-8.3)
--- NOTE | 2021-07-29 07:53 | CT Scan Report ---
ABDOMEN AND PELVIS CT WITH IV CONTRAST CT DOSE: 298.75 mGy.cm HISTORY: Generalized abdominal pain, hx pancreatitis TECHNIQUE: Multiaxial CT images of the abdomen and pelvis were performed following the use of intrave nous contrast. A dose lowering technique was utilized adhering to the principles of ALARA. COMPARISON STUDY: Abdomen and pelvis CT 04/20/2021. FINDINGS: Bibasilar linear densities consistent with subsegmental atelectasis. No pneumoperitoneum. N o pneumatosis. No fractures within the visualized osseous structures. Small fat/fluid containing umbi lical hernia and left inguinal hernia. The bladder is decompressed but appears unremarkable. An intra uterine device appears in good position. There is a 3.9 cm right ovarian cyst. Small amount of ascite s seen within the abdomen. The liver, gallbladder, spleen, and adrenal glands are unremarkable. Mild bilateral cortical renal scarring. No hydronephrosis. Normal caliber abdominal aorta. Mild to moderat e narrowing of the main portal vein likely due to mass effect from the adjacent fluid/inflammatory ch ximena. Moderate thickening of the stomach wall predominantly along the lesser curvature which may be r eactive to the peripancreatic inflammatory change/edema. There is small amount of peripancreatic flui d. There are 2 adjacent peripancreatic fluid collections measuring 4.5 and 1.8 cm best seen on images 110 and 126, respectively. These are consistent with pseudocysts. The cystogastrostomy stent has bee n removed in the interval. A few segments of borderline thickened transverse colon and descending col on may be due to underdistention or reactive to the peripancreatic inflammatory change. Otherwise, no evidence for bowel obstruction. Normal appendix. Mass effect along the splenic vein is also noted wi thout definite occlusion at this time. Focal mild thickening of a few the small bowel loops within th e abdomen which may also be reactive to the edema/fluid. IMPRESSION: 1. Peripancreatic inflammatory change/edema with a small amount of ascites and 2 peripancreatic pseud ocysts as described above. This consistent with acute pancreatitis. 2. Narrowed but patent main portal vein and splenic veins. 3. Moderate gastric wall thickening along the lesser curvature. This is likely reactive to the pancre atitis. 4. Questionable thickening along the transverse colon and descending colon which is likely due to und erdistention or reactive to the pancreatitis. 5. Additional findings as described above. ACT 112: Negative or not required by law. Electronically signed by: Marek Hughes M.D. 07/29/2021 7:50 AM
[2021-07-29 07:54] LABS: INR 8.4 (0.9-1.1)
--- NOTE | 2021-07-29 08:53 | Hospitalist Progress Note ---
Date of Service July 29, 2021 Assessment & Plan (1) Pancreatitis: (2) Abdominal pain: (3) Leukocytosis: (4) Elevated INR: (5) Acute UTI: (6) Portal vein thrombosis: Plan: This is a 41-year-old female who presents with abdominal pain due to pancreatitis 1. Abdominal pain: Recurrent pancreatitis. Lipase elevated at 962 CT abd. pelvis IMPRESSION: 1. Peripancreatic inflammatory change/edema with a small amount of ascites and 2 peripancreatic pseudocysts as described above. This consistent with acute pancreatitis. 2. Narrowed but patent main portal vein and splenic veins. 3. Moderate gastric wall thickening along the lesser curvature. This is likely reactive to the pancreatitis. 4. Questionable thickening along the transverse colon and descending colon which is likely due to underdistention or reactive to the pancreatitis. 5. Additional findings as described above. Cont. aggressive fluids with LR at 200 mL per hour, IV Dilaudid p.r.n., IV Pepcid for possible gastritis. n.p.o. initially, will try clear liquids Monitor in the medical floor. GI consulted 2. Urinary tract infection: Getting Rocephin. Follow the cultures. 3. Chronic back pain: Follow up as outpatient. 4. History of portal vein thrombus: On Coumadin. INR is supratherapeutic at 7.3. received vitamin K 2.5, follow the PT/INR. hold coumadin for now 5. Ongoing tobacco abuse: Needs counseling. DVT prophylaxis: INR supratherapeutic. DISPOSITION: Closely monitor in the medical floor. Admission and Anticipated Discharge Date Admission Date: July 28, 2021 Subjective Patient seen in follow-up of pancreatitis Currently patient is lying in bed, in no acute distress Denies any nausea vomiting diarrhea Reports abdominal discomfort, mainly in upper quadrants Denies fevers, chills chest pain shortness of breath Review of Systems Review of Systems: All systems reviewed & are unremarkable except as noted in Subjective Physical Exam Physical Exam: GENERAL: WD/WN F, not in acute distress. HEENT: NC/AT. EOMI. Pupils equal, round and reactive to light. Oral mucosa dry. NECK: No JVD, no neck masses. CARDIOVASCULAR: S1 and S2 heard. Regular rate and rhythm. No murmur, no gallop. RESPIRATORY: Normal AP diameter. No accessory muscle use. No wheezing, no crackles. ABDOMEN: Soft, bowel sounds present, mildly tender to palpation in upper quadrants, no distention. NEURO:Alert and oriented X3, answers questions appropriately, speech fluent, no facial asymmetry, moves extremities. EXTREMITIES: No edema, no erythema. Results & Data Results & Data ([facility]) Vital Signs (Past 12 Hours) Vital Signs Temp Pulse Pulse Resp BP Pulse Ox 07/29/21 07:35 37.1 C 69 20 88/52 L 94 07/29/21 00:45 36.6 C 82 18 123/85 97 07/29/21 00:35 36.6 C 82 18 123/85 99 07/28/21 22:00 87 16 138/75 95 Laboratory Results 07/29/21 07/29/21 07/29/21 Range/Units 06:06 06:06 06:06 WBC 11.57 H (4.8-10.8) K/uL RBC 5.04 (4.2-5.4) M/uL Hgb 14.6 (12.0-16.0) g/dL Hct 44.4 (37-47) % MCV 88.1 (80-100) fL MCH 29.0 (25-34) pg MCHC 32.9 (32-36) g/dL RDW Std Deviation 55.5 H (36.4-46.3) fL RDW Coeff of Yamile 17.2 H (11.5-14.5) % Plt Count 354 (130-400) K/uL MPV 10.3 (7.4-10.4) fL Immature Gran % (Auto) 0.4 % Neut % (Auto) 73.4 % Lymph % (Auto) 16.8 % [place] % (Auto) 7.7 % Eos % (Auto) 1.6 % Baso % (Auto) 0.1 % Neut # (Auto) 8.50 H (1.4-6.5) K/uL Lymph # (Auto) 1.94 (1.2-3.4) K/uL [place] # (Auto) 0.89 H (0.11-0.59) K/uL Eos # (Auto) 0.18 (0-0.5) K/uL Baso # (Auto) 0.01 (0-0.2) K/uL Immature Gran # (Auto) 0.05 H (0.00-0.02) K/uL PT 80.0 H (9.0-12.0) Seconds INR 8.4 H* (0.9-1.1) Sodium 136 (136-145) mmol/L Potassium 3.7 Chloride 105 (98-107) mmol/L Carbon Dioxide 24 (21-32) mmol/L Anion Gap 7 (3-11) BUN 9 (6-23) mg/dl Creatinine 0.57 L (0.6-1.2) mg/dl Est Cr Clr Drug Dosing 120.4 ml/min Est GFR ( Amer) 132.5 ml/min Est GFR (Non-Af Amer) 114.3 ml/min BUN/Creatinine Ratio 15.8 (10-20) Glucose 97 (70-99(Fasting)) mg/dl Calcium 8.6 (8.5-10.1) mg/dl Magnesium 1.7 (1.7-2.4) mg/dl Total Bilirubin 0.4 (0.2-1.0) mg/dl Direct Bilirubin 0.1 (0-0.2) mg/dl AST 11 L ALT 15 (7-52) U/L Alkaline Phosphatase 125 H (34-104) U/L Troponin I High Sens (0-14) pg/ml Total Protein 6.3 D (6.0-8.3) gm/dl Albumin 3.5 (3.4-5.0) gm/dl Globulin (2.5-4.0) gm/dl Albumin/Globulin Ratio (0.9-2) Lipase 909 H (11-82) U/L Urine Color Urine Appearance (Clear) Urine pH (4.5-7.5) Ur Specific [place] (1.000-1.030) Urine Protein (Negative) Urine Glucose (UA) (Negative) Urine Ketones (Negative) Urine Blood (Negative) Urine Nitrite (Negative) Urine Bilirubin (Negative) Urine Urobilinogen (Negative) Ur Leukocyte Esterase (Negative) Urine WBC (Auto) (0-5) /hpf Urine RBC (Auto) (0-4) /hpf U Hyaline Cast (Auto) (0-5) /lpf U Epithel Cells (Auto) (0-5) /lpf Urine Bacteria (Auto) (Negative) Urine Mucus (None Prsent) POC Ur Test (NEG) SARS-CoV-2, RNA, NAAT (NEGATIVE) 07/28/21 07/28/21 07/28/21 Range/Units 21:35 20:57 20:57 WBC (4.8-10.8) K/uL RBC (4.2-5.4) M/uL Hgb (12.0-16.0) g/dL Hct (37-47) % MCV (80-100) fL MCH (25-34) pg MCHC (32-36) g/dL RDW Std Deviation (36.4-46.3) fL RDW Coeff of Yamile (11.5-14.5) % Plt Count (130-400) K/uL MPV (7.4-10.4) fL Immature Gran % (Auto) % Neut % (Auto) % Lymph % (Auto) % [place] % (Auto) % Eos % (Auto) % Baso % (Auto) % Neut # (Auto) (1.4-6.5) K/uL Lymph # (Auto) (1.2-3.4) K/uL [place] # (Auto) (0.11-0.59) K/uL Eos # (Auto) (0-0.5) K/uL Baso # (Auto) (0-0.2) K/uL Immature Gran # (Auto) (0.00-0.02) K/uL PT 69.4 H (9.0-12.0) Seconds INR 7.3 H* (0.9-1.1) Sodium (136-145) mmol/L Potassium 3.7 Chloride (98-107) mmol/L Carbon Dioxide (21-32) mmol/L Anion Gap (3-11) BUN (6-23) mg/dl Creatinine (0.6-1.2) mg/dl Est Cr Clr Drug Dosing ml/min Est GFR ( Amer) ml/min Est GFR (Non-Af Amer) ml/min BUN/Creatinine Ratio (10-20) Glucose (70-99(Fasting)) mg/dl Calcium (8.5-10.1) mg/dl Magnesium 1.8 (1.7-2.4) mg/dl Total Bilirubin (0.2-1.0) mg/dl Direct Bilirubin (0-0.2) mg/dl AST 13 ALT (7-52) U/L Alkaline Phosphatase (34-104) U/L Troponin I High Sens 3.7 (0-14) pg/ml Total Protein (6.0-8.3) gm/dl Albumin (3.4-5.0) gm/dl Globulin (2.5-4.0) gm/dl Albumin/Globulin Ratio (0.9-2) Lipase (11-82) U/L Urine Color Urine Appearance (Clear) Urine pH (4.5-7.5) Ur Specific [place] (1.000-1.030) Urine Protein (Negative) Urine Glucose (UA) (Negative) Urine Ketones (Negative) Urine Blood (Negative) Urine Nitrite (Negative) Urine Bilirubin (Negative) Urine Urobilinogen (Negative) Ur Leukocyte Esterase (Negative) Urine WBC (Auto) (0-5) /hpf Urine RBC (Auto) (0-4) /hpf U Hyaline Cast (Auto) (0-5) /lpf U Epithel Cells (Auto) (0-5) /lpf Urine Bacteria (Auto) (Negative) Urine Mucus (None Prsent) POC Ur Test (NEG) SARS-CoV-2, RNA, NAAT NEGATIVE (NEGATIVE) 07/28/21 07/28/21 07/28/21 Range/Units 19:30 19:30 19:30 WBC (4.8-10.8) K/uL RBC (4.2-5.4) M/uL Hgb (12.0-16.0) g/dL Hct (37-47) % MCV (80-100) fL MCH (25-34) pg MCHC (32-36) g/dL RDW Std Deviation (36.4-46.3) fL RDW Coeff of Yamile (11.5-14.5) % Plt Count (130-400) K/uL MPV (7.4-10.4) fL Immature Gran % (Auto) % Neut % (Auto) % Lymph % (Auto) % [place] % (Auto) % Eos % (Auto) % Baso % (Auto) % Neut # (Auto) (1.4-6.5) K/uL Lymph # (Auto) (1.2-3.4) K/uL [place] # (Auto) (0.11-0.59) K/uL Eos # (Auto) (0-0.5) K/uL Baso # (Auto) (0-0.2) K/uL Immature Gran # (Auto) (0.00-0.02) K/uL PT (9.0-12.0) Seconds INR (0.9-1.1) Sodium 135 L (136-145) mmol/L Potassium TNP Chloride 100 (98-107) mmol/L Carbon Dioxide 26 (21-32) mmol/L Anion Gap 9 (3-11) BUN 11 (6-23) mg/dl Creatinine 0.58 L (0.6-1.2) mg/dl Est Cr Clr Drug Dosing 115.1 ml/min Est GFR ( Amer) 131.8 ml/min Est GFR (Non-Af Amer) 113.7 ml/min BUN/Creatinine Ratio 19.0 (10-20) Glucose 108 H (70-99(Fasting)) mg/dl Calcium 9.8 (8.5-10.1) mg/dl Magnesium (1.7-2.4) mg/dl Total Bilirubin 0.6 (0.2-1.0) mg/dl Direct Bilirubin (0-0.2) mg/dl AST TNP ALT 23 (7-52) U/L Alkaline Phosphatase 164 H (34-104) U/L Troponin I High Sens (0-14) pg/ml Total Protein 7.9 (6.0-8.3) gm/dl Albumin 4.3 (3.4-5.0) gm/dl Globulin 3.6 (2.5-4.0) gm/dl Albumin/Globulin Ratio 1.2 (0.9-2) Lipase 962 H (11-82) U/L Urine Color Dark Yellow Urine Appearance Cloudy A (Clear) Urine pH 5.5 (4.5-7.5) Ur Specific [place] 1.038 H (1.000-1.030) Urine Protein 1+ H (Negative) Urine Glucose (UA) Negative (Negative) Urine Ketones Trace H (Negative) Urine Blood 3+ H (Negative) Urine Nitrite Positive A (Negative) Urine Bilirubin 1+ H (Negative) Urine Urobilinogen Negative (Negative) Ur Leukocyte Esterase 1+ H (Negative) Urine WBC (Auto) >30 H (0-5) /hpf Urine RBC (Auto) 5-10 H (0-4) /hpf U Hyaline Cast (Auto) 0 (0-5) /lpf U Epithel Cells (Auto) >30 H (0-5) /lpf Urine Bacteria (Auto) 4+ H (Negative) Urine Mucus Present A (None Prsent) POC Ur Test NEG (NEG) SARS-CoV-2, RNA, NAAT (NEGATIVE) 07/28/21 Range/Units 19:30 WBC 15.03 H (4.8-10.8) K/uL RBC 5.64 H (4.2-5.4) M/uL Hgb 16.5 H (12.0-16.0) g/dL Hct 49.0 H (37-47) % MCV 86.9 (80-100) fL MCH 29.3 (25-34) pg MCHC 33.7 (32-36) g/dL RDW Std Deviation 54.4 H (36.4-46.3) fL RDW Coeff of Yamile 17.0 H (11.5-14.5) % Plt Count 446 H (130-400) K/uL MPV 9.9 (7.4-10.4) fL Immature Gran % (Auto) 0.3 % Neut % (Auto) 77.4 % Lymph % (Auto) 15.6 % [place] % (Auto) 5.3 % Eos % (Auto) 1.3 % Baso % (Auto) 0.1 % Neut # (Auto) 11.64 H (1.4-6.5) K/uL Lymph # (Auto) 2.35 (1.2-3.4) K/uL [place] # (Auto) 0.80 H (0.11-0.59) K/uL Eos # (Auto) 0.19 (0-0.5) K/uL Baso # (Auto) 0.01 (0-0.2) K/uL Immature Gran # (Auto) 0.04 H (0.00-0.02) K/uL PT (9.0-12.0) Seconds INR (0.9-1.1) Sodium (136-145) mmol/L Potassium Chloride (98-107) mmol/L Carbon Dioxide (21-32) mmol/L Anion Gap (3-11) BUN (6-23) mg/dl Creatinine (0.6-1.2) mg/dl Est Cr Clr Drug Dosing ml/min Est GFR ( Amer) ml/min Est GFR (Non-Af Amer) ml/min BUN/Creatinine Ratio (10-20) Glucose (70-99(Fasting)) mg/dl Calcium (8.5-10.1) mg/dl Magnesium (1.7-2.4) mg/dl Total Bilirubin (0.2-1.0) mg/dl Direct Bilirubin (0-0.2) mg/dl AST ALT (7-52) U/L Alkaline Phosphatase (34-104) U/L Troponin I High Sens (0-14) pg/ml Total Protein (6.0-8.3) gm/dl Albumin (3.4-5.0) gm/dl Globulin (2.5-4.0) gm/dl Albumin/Globulin Ratio (0.9-2) Lipase (11-82) U/L Urine Color Urine Appearance (Clear) Urine pH (4.5-7.5) Ur Specific [place] (1.000-1.030) Urine Protein (Negative) Urine Glucose (UA) (Negative) Urine Ketones (Negative) Urine Blood (Negative) Urine Nitrite (Negative) Urine Bilirubin (Negative) Urine Urobilinogen (Negative) Ur Leukocyte Esterase (Negative) Urine WBC (Auto) (0-5) /hpf Urine RBC (Auto) (0-4) /hpf U Hyaline Cast (Auto) (0-5) /lpf U Epithel Cells (Auto) (0-5) /lpf Urine Bacteria (Auto) (Negative) Urine Mucus (None Prsent) POC Ur Test (NEG) SARS-CoV-2, RNA, NAAT (NEGATIVE) Medications Administered Current Inpatient Medications Acetaminophen (Acetaminophen 325 Mg Tab) 650 mg PO Q4H PRN PRN Reason: pain/fever Stop: 08/28/21 00:34 Hydromorphone HCl (Hydromorphone Inj 0.5 Mg/0.5 Ml Syr) 0.5 mg IV Q3H PRN PRN Reason: Pain Stop: 08/12/21 00:34 Last Admin: 07/29/21 05:43 Dose: 0.5 mg Documented by: Famotidine 20 mg/ Syringe 5 mls @ 2.5 mls/min IV BID NAOMIE Stop: 08/28/21 08:59 Sodium Chloride (Nss 1000ml) 1,000 mls @ 200 mls/hr IV .Q5H NAOMIE Stop: 08/28/21 00:34 Last Admin: 07/29/21 05:44 Dose: 200 mls/hr Documented by: Ceftriaxone Sodium 1,000 mg/ (Dextrose) 60 mls @ 100 mls/hr IV Q24H NAOMIE; Protocol Stop: 08/08/21 20:59 Ondansetron HCl (Ondansetron Inj 2 Mg/Ml 2 Ml Vial) 4 mg IV Q6H PRN PRN Reason: Nausea Stop: 08/28/21 00:34 Polyethylene Glycol (Polyethylene (Miralax) 17 Gm Pack) 17 gm PO DAILY PRN PRN Reason: Constipation Stop: 08/28/21 00:34 (1) Pancreatitis Acute pancreatitis complication: no infection or necrosis Chronicity: acute Pancreatitis type: unspecified pancreatitis type Qualified Code(s): K85.90 - Acute pancreatitis without necrosis or infection, unspecified (2) Abdominal pain Abdominal location: unspecified location Qualified Code(s): R10.9 - Unspecified abdominal pain (3) Leukocytosis Leukocytosis type: unspecified Qualified Code(s): D72.829 - Elevated white blood cell count, unspecified
[2021-07-29] MEDS: FAMOTIDINE 20 MG in SYRINGE 3 ML IV SCH ×2 (09:51→21:15)
[2021-07-29] MEDS ORDERED: PHYTONADIONE 5 MG in DEXTROSE 5% 50 ML IV ONE (10:30)
[2021-07-29] MEDS: LACTATED RINGER'S 1,000 ML IV SCH ×3 (11:27→21:52)
--- NOTE | 2021-07-29 11:45 | Gastrointestinal Consultation ---
Date of Consultation July 29, 2021 Assessment & Plan (1) Pancreatitis: Pt is a 41 yo female, w abd pain ,nausea, elevated lipase, normal LFTs. CT consistent w pancreatitis w 2 pseudocysts 45 & 18mm. Hx of pancreatitis and pseudocyst drainage w Axios stent (removed 04/2021). Suspect recurrent pancreatitis likely related to tobacco and ETOH uses. - Continue antibx coverage for suspected UTI - CL diet - PPI BID - LR @ 200ml/hr - Symptomatic management - Tobacco and ETOH cessation recommended - Upon DC should have GI f/u and repeat CT to eval for resolution of pseudocysts in about 6 week's time Supervising Physician Co-Signing Physician Notes I saw and evaluated the patient. We were consulted for evaluation of recurrent pancreatitis. Patient does have a long history of alcohol and tobacco abuse resulting in severe pancreatitis with pseudocyst formation. The patient presented with recurrent abdominal pain and was found to have a 4 cm cyst on a recent study. Today she notes that she is feeling somewhat better. 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 She does appear to be anxious improving today. For the present time there does not appear to be a role of any endoscopic interventions. I would recommend IV hydration as you are doing, liqu id diet today and advance diet as tolerated over the next day or so. Please call with any questions or concerns during remainder of hospital admission. History of Present Illness Reason for Consultation: Pancreatitis Requesting Physician: Dr. Ulises Herrera Attending Physician: Dr. Ulises Herrera History of Present Illness Pt is a 41 yo female who presented w abd pain, nausea since yesterday. No fever, chills, jaundice noted. No bowel habit changes. Hx of pancreatitis, w pseudocyst drainage w Axios stent (placed 03/2021, removed 04/2021). She smoke tobacco, and had ETOH intake last weekend. On eval, found to have leukocytosis, normal LFTs but lipase up in 900s. CT abd/pelvis w IV contrast showed p eripancreatic inflammatory change/edema with a small amount of ascites and 2 peripancreatic pseudocysts. Hx of PVT on Coumadin, INR 8. Allergies Allergy/AdvReac Type Severity Reaction Status Date / Time pollen extracts Allergy Intermediate SEASONAL-IT Verified 07/28/21 21:26 KATE Home Medications Medication Instructions Recorded Confirmed Type levonorgestrel 20 mcg/24 hours (7 1 insert INTRAUTERINE CONTINOUS 04/20/21 07/28/21 History yrs) 52 mg intrauterine device (Mirena) warfarin 5 mg tablet See Rx Instructions .ROUTE .COMPLEX 04/20/21 07/28/21 History Patient History Medical History (Updated 07/28/21 @ 22:28 by Ayden Garcia M.D.) Acute pancreatitis Alcohol dependence Ileus Pancreatitis Tobacco abuse Surgical History (Updated 03/01/21 @ 10:38 by Silva Massey PA-C) History of dental surgery Family History (Updated 03/01/21 @ 10:38 by Silva Massey PA-C) Father Hypertension Mother Rheumatoid arthritis Social History (Updated 03/01/21 @ 10:39 by Silva Massey PA-C) Smoking Status: Current some day smoker Tobacco Type: Cigarettes packs per day: 1; Years Smoked: 20; Second Hand Exposure: Yes; Do You Dip or Chew Tobacco: No; Tobacco Cessation Education Requested by Patient: No Hx Alcohol Use: Yes Alcohol type: beer Alcohol type Comment: 4-5 shots; 4-5 x/wk Alcohol Intake Frequency: 4 or More x per/Week Hx Substance Use: No Preferred Language: [place] Communication Ability: Effective Cut Off Saw Operator Required: No Beliefs That Will Affect Care: None marital status: Current Living Situation: Spouse Other Information That Helps Us Care for You: No Feels Safe at Home: Yes Safety Concerns: Feels Safe At This Time Assistive Devices: None Review of Systems Review of Systems: All systems reviewed & are unremarkable except as noted in HPI & below Physical Exam Constitutional: WD/WN, vitals as above well groomed, cooperative and comfortable Eyes: PERRL, conjunctivae normal, anicteric sclerae ENMT: external ear and nose normal, oropharynx normal Respiratory: normal respiratory effort, lungs clear to auscultation Cardiovascular: RRR, no murmur, no edema Gastrointestinal (Abdomen): BS presented, mild distension, non tender on palpation Skin: no rashes, warm and dry no jaundice Neurologic: Motor/Sensory: no asterixis Psychiatric: A+Ox3, euthymic affect Lymphatic: no lymphedema Results & Data ([facility]) Vital Signs (Past 12 Hours) Vital Signs Temp Pulse Pulse Resp BP Pulse Ox 07/29/21 07:35 37.1 C 69 20 88/52 L 94 07/29/21 00:45 36.6 C 82 18 123/85 97 07/29/21 00:35 36.6 C 82 18 123/85 99 (1) Pancreatitis Acute pancreatitis complication: no infection or necrosis Chronicity: acute Pancreatitis type: unspecified pancreatitis type Qualified Code(s): K85.90 - Acute pancreatitis without necrosis or infection, unspecified
--- NOTE | 2021-07-29 13:31 | Electrocardiogram Report ---
Test Reason : Blood Pressure : / mmHG Vent. Rate : 091 BPM Atrial Rate : 091 BPM P-R Int : 124 ms QRS Dur : 084 ms QT Int : 350 ms P-R-T Axes : 046 077 028 degrees QTc Int : 430 ms Normal sinus rhythm Normal ECG When compared with ECG of 24-MAR-2021 12:36, ST no longer depressed in Inferior leads Confirmed by Oscar Foy ([id number]) on 07/29/2021 1:31:08 PM Referred By: REFERRED SELF Confirmed By:Oscar Foy
[2021-07-29] MEDS: NICOTINE 14 MG/24 HR PATCH TD SCH (17:02)
[2021-07-29] MEDS ORDERED: cefTRIAXone SODIUM 1,000 MG in DEXTROSE 5% 50 ML IV SCH (21:00)
[2021-07-30] MEDS: LACTATED RINGER'S 1,000 ML IV SCH ×4 (02:47→19:23)
[2021-07-30] MEDS: HYDROmorphone INJ 0.5 MG/0.5 ML SYR IV PRN ×4 (03:24→19:10)
[2021-07-30 07:14] LABS: Hematocrit (blood only) 36.3 % (37-47); Mean Corpuscular Hemoglobin 28.3 pg (25-34); Mean Corpuscular Hgb Conc 33.1 g/dL (32-36); Mean Corpuscular Volume 85.6 fL (80-100); Mean Platelet Volume 9.8 fL (7.4-10.4); Platelet Count 266 K/uL (130-400); RDW Coefficient of Variation 16.7 % (11.5-14.5); Red Blood Count 4.24 M/uL (4.2-5.4); White Blood Count 7.44 K/uL (4.8-10.8)
[2021-07-30 07:35] LABS: INR 1.3 (0.9-1.1); Prothrombin Time 13.6 Seconds (9.0-12.0)
[2021-07-30 07:49] LABS: Albumin Globulin Ratio 1.3 (0.9-2); Albumin Level 2.7 gm/dl (3.4-5.0); Bilirubin,Total 0.6 mg/dl (0.2-1.0); Calcium 7.8 mg/dl (8.5-10.1); Creatinine Clr Calc Pharmacy 149.1 ml/min; Est GFR (African American) 142.2 ml/min; Est GFR (Non-African American) 122.7 ml/min; Globulin 2.1 gm/dl (2.5-4.0); Magnesium 1.4 mg/dl (1.7-2.4); Potassium 3.4 mmol/L (3.5-5.1); Total Protein 4.8 gm/dl (6.0-8.3)
[2021-07-30] MEDS ORDERED: MAGNESIUM SULFATE / D5W 1 GM/100 ML BAG IV ONE (08:23)
[2021-07-30] MEDS ORDERED: POTASSIUM CHLORIDE CRTAB 20 MEQ TABCR PO STA (08:23)
--- NOTE | 2021-07-30 08:23 | Hospitalist Progress Note ---
Date of Service July 30, 2021 Assessment & Plan (1) Pancreatitis: (2) Abdominal pain: (3) Leukocytosis: (4) Elevated INR: (5) Acute UTI: (6) Portal vein thrombosis: Plan: This is a 41-year-old female who presents with abdominal pain due to pancreatitis 1. Abdominal pain: Recurrent pancreatitis. Lipase elevated at 962 CT abd. pelvis IMPRESSION: 1. Peripancreatic inflammatory change/edema with a small amount of ascites and 2 peripancreatic pseudocysts as described above. This consistent with acute pancreatitis. 2. Narrowed but patent main portal vein and splenic veins. 3. Moderate gastric wall thickening along the lesser curvature. This is likely reactive to the pancreatitis. 4. Questionable thickening along the transverse colon and descending colon which is likely due to underdistention or reactive to the pancreatitis. 5. Additional findings as described above. Cont. w/IV fluids with LR at 150 mL per hour, IV Dilaudid p.r.n., IV Pepcid for possible gastritis. tolerated clear liquids, advance to full liquid diet Monitor in the medical floor. GI consulted 2. Urinary tract infection: Was started on Rocephin empirically. Urine cultures - positive for Enterobacter cloacae switch to cefepime 3. Chronic back pain: Follow up as outpatient. 4. History of portal vein thrombus: On Coumadin. INR supratherapeutic at 7.3 on admission. Received vitamin K. Now INR down to 1.3 Resume coumadin. Monitor PT/INR 5. Ongoing tobacco abuse: Needs counseling. Nicotine patch applied DVT prophylaxis: INR supratherapeutic. DISPOSITION: Closely monitor in the medical floor. Admission and Anticipated Discharge Date Admission Date: July 28, 2021 Subjective Patient seen in follow-up of pancreatitis Currently patient is lying in bed, in no acute distress Denies any nausea vomiting diarrhea Reports abdominal discomfort, mainly in upper quadrants now improved Denies fevers, chills chest pain shortness of breath She tolerated clear liquids, will advance to full liquid diet Review of Systems Review of Systems: All systems reviewed & are unremarkable except as noted in Subjective Physical Exam Physical Exam: GENERAL: WD/WN F, not in acute distress. HEENT: NC/AT. EOMI. Pupils equal, round and reactive to light. Oral mucosa dry. NECK: No JVD, no neck masses. CARDIOVASCULAR: S1 and S2 heard. Regular rate and rhythm. No murmur, no gallop. RESPIRATORY: Normal AP diameter. No accessory muscle use. No wheezing, no crackles. ABDOMEN: Soft, bowel sounds present, mildly tender to palpation in upper quadrants, no distention. NEURO:Alert and oriented X3, answers questions appropriately, speech fluent, no facial asymmetry, moves extremities. EXTREMITIES: No edema, no erythema. Results & Data Results & Data ([facility]) Vital Signs (Past 12 Hours) Vital Signs Temp Pulse Resp BP Pulse Ox 07/30/21 07:25 36.6 C 73 20 107/75 97 07/29/21 22:46 37.2 C 84 16 115/77 96 Laboratory Results 07/30/21 07/30/21 07/30/21 Range/Units 06:56 06:56 06:56 WBC 7.44 (4.8-10.8) K/uL RBC 4.24 (4.2-5.4) M/uL Hgb 12.0 (12.0-16.0) g/dL Hct 36.3 L (37-47) % MCV 85.6 (80-100) fL MCH 28.3 (25-34) pg MCHC 33.1 (32-36) g/dL RDW Std Deviation 53.0 H (36.4-46.3) fL RDW Coeff of Yamile 16.7 H (11.5-14.5) % Plt Count 266 (130-400) K/uL MPV 9.8 (7.4-10.4) fL PT 13.6 H (9.0-12.0) Seconds INR 1.3 H (0.9-1.1) Sodium 135 L (136-145) mmol/L Potassium 3.4 L (3.5-5.1) mmol/L Chloride 106 (98-107) mmol/L Carbon Dioxide 25 (21-32) mmol/L Anion Gap 4 (3-11) BUN 6 (6-23) mg/dl Creatinine 0.46 L (0.6-1.2) mg/dl Est Cr Clr Drug Dosing 149.1 ml/min Est GFR ( Amer) 142.2 ml/min Est GFR (Non-Af Amer) 122.7 ml/min BUN/Creatinine Ratio 13.0 (10-20) Glucose 92 (70-99(Fasting)) mg/dl Calcium 7.8 L (8.5-10.1) mg/dl Phosphorus 3.0 (2.5-4.9) mg/dl Magnesium 1.4 L (1.7-2.4) mg/dl Total Bilirubin 0.6 (0.2-1.0) mg/dl AST 7 L (13-39) U/L ALT 9 (7-52) U/L Alkaline Phosphatase 94 (34-104) U/L Total Protein 4.8 L D (6.0-8.3) gm/dl Albumin 2.7 L (3.4-5.0) gm/dl Globulin 2.1 L (2.5-4.0) gm/dl Albumin/Globulin Ratio 1.3 (0.9-2) Lipase 198 H (11-82) U/L Medications Administered Current Inpatient Medications Acetaminophen (Acetaminophen 325 Mg Tab) 650 mg PO Q4H PRN PRN Reason: pain/fever Stop: 08/28/21 00:34 Hydromorphone HCl (Hydromorphone Inj 0.5 Mg/0.5 Ml Syr) 0.5 mg IV Q3H PRN PRN Reason: Pain Stop: 08/12/21 00:34 Last Admin: 07/30/21 08:09 Dose: 0.5 mg Documented by: Famotidine 20 mg/ Syringe 5 mls @ 2.5 mls/min IV BID [facility] Stop: 08/28/21 08:59 Last Admin: 07/29/21 21:15 Dose: 2.5 mls/min Documented by: Ceftriaxone Sodium 1,000 mg/ (Dextrose) 60 mls @ 100 mls/hr IV Q24H [facility]; Protocol Stop: 08/08/21 20:59 Last Infusion: 07/29/21 21:52 Dose: Infused Documented by: Lactated Ringer's (Lr) 1,000 mls @ 200 mls/hr IV .Q5H [facility] Stop: 08/28/21 09:59 Last Admin: 07/30/21 06:46 Dose: 200 mls/hr Documented by: Magnesium Sulfate/Dextrose (Magnesium Sulfate / D5w) 1 gm in 100 mls @ 50 mls/hr IV ONE ONE Stop: 07/30/21 10:22 Miscellaneous (Remove Nicoderm Patch) 1 ea N/A DAILY@0859 [facility] Stop: 08/29/21 08:58 Nicotine (Nicotine 14 Mg/24 Hr Patch) 14 mg TD QAM [facility] Stop: 08/28/21 16:44 Last Admin: 07/29/21 17:02 Dose: 14 mg Documented by: Ondansetron HCl (Ondansetron Inj 2 Mg/Ml 2 Ml Vial) 4 mg IV Q6H PRN PRN Reason: Nausea Stop: 08/28/21 00:34 Polyethylene Glycol (Polyethylene (Miralax) 17 Gm Pack) 17 gm PO DAILY PRN PRN Reason: Constipation Stop: 08/28/21 00:34 Potassium Chloride (Potassium Chloride Crtab 20 Meq Tabcr) 40 meq PO NOW STA Stop: 07/30/21 08:24 (1) Leukocytosis Leukocytosis type: unspecified Qualified Code(s): D72.829 - Elevated white blood cell count, unspecified (2) Pancreatitis Acute pancreatitis complication: no infection or necrosis Chronicity: acute Pancreatitis type: unspecified pancreatitis type Qualified Code(s): K85.90 - Acute pancreatitis without necrosis or infection, unspecified (3) Abdominal pain Abdominal location: unspecified location Qualified Code(s): R10.9 - Unspecified abdominal pain
[2021-07-30] MEDS: FAMOTIDINE 20 MG in SYRINGE 3 ML IV SCH ×2 (08:39→20:24)
[2021-07-30] MEDS: NICOTINE 14 MG/24 HR PATCH TD SCH (08:40)
[2021-07-30] MEDS: WARFARIN SOD 5 MG TAB PO SCH (16:01)
[2021-07-30] MEDS: CEFEPIME 2,000 MG in SYRINGE 0 ML IV SCH (16:09)
[2021-07-31] MEDS: HYDROmorphone INJ 0.5 MG/0.5 ML SYR IV PRN ×5 (00:39→20:06)
[2021-07-31] MEDS: CEFEPIME 2,000 MG in SYRINGE 0 ML IV SCH ×2 (02:06→13:37)
[2021-07-31] MEDS: LACTATED RINGER'S 1,000 ML IV SCH ×3 (02:12→16:33)
[2021-07-31 06:36] LABS: Hematocrit (blood only) 36.4 % (37-47); Hemoglobin 11.6 g/dL (12.0-16.0); Mean Corpuscular Hemoglobin 28.1 pg (25-34); Mean Corpuscular Hgb Conc 31.9 g/dL (32-36); Mean Corpuscular Volume 88.1 fL (80-100); Mean Platelet Volume 10.8 fL (7.4-10.4); Platelet Count 260 K/uL (130-400); RDW Coefficient of Variation 16.7 % (11.5-14.5); RDW Standard Deviation 54.3 fL (36.4-46.3); Red Blood Count 4.13 M/uL (4.2-5.4); White Blood Count 6.25 K/uL (4.8-10.8)
[2021-07-31 07:02] LABS: Albumin Globulin Ratio 1.3 (0.9-2); Albumin Level 2.9 gm/dl (3.4-5.0); BUN Creatinine Ratio 8.3 (10-20); Bilirubin,Total 0.4 mg/dl (0.2-1.0); Calcium 8.2 mg/dl (8.5-10.1); Creatinine Clr Calc Pharmacy 142.9 ml/min; Est GFR (African American) 140.2 ml/min; Globulin 2.2 gm/dl (2.5-4.0); Magnesium 1.6 mg/dl (1.7-2.4); Phosphorus 3.3 mg/dl (2.5-4.9); Potassium 4.1 mmol/L (3.5-5.1); Total Protein 5.1 gm/dl (6.0-8.3)
[2021-07-31 07:35] LABS: INR 1.2 (0.9-1.1); Prothrombin Time 13.1 Seconds (9.0-12.0)
[2021-07-31] MEDS ORDERED: MAGNESIUM SULFATE / D5W 1 GM/100 ML BAG IV ONE (08:25)
--- NOTE | 2021-07-31 08:32 | Hospitalist Progress Note ---
Date of Service July 31, 2021 Assessment & Plan (1) Pancreatitis: (2) Abdominal pain: (3) Leukocytosis: (4) Elevated INR: (5) Acute UTI: (6) Portal vein thrombosis: Plan: This is a 41-year-old female who presents with abdominal pain due to pancreatitis 1. Abdominal pain: Recurrent pancreatitis. Lipase elevated at 9[address] CT abd. pelvis IMPRESSION: 1. Peripancreatic inflammatory change/edema with a small amount of ascites and 2 peripancreatic pseudocysts as described above. This consistent with acute pancreatitis. 2. Narrowed but patent main portal vein and splenic veins. 3. Moderate gastric wall thickening along the lesser curvature. This is likely reactive to the pancreatitis. 4. Questionable thickening along the transverse colon and descending colon which is likely due to underdistention or reactive to the pancreatitis. 5. Additional findings as described above. Cont. w/IV fluids with LR at 100 mL per hour, IV Dilaudid p.r.n., IV Pepcid for possible gastritis. tolerated clear liquids, advance to full liquid diet Monitor in the medical floor. GI consulted - Upon DC should have GI f/u and repeat CT to eval for resolution of pseudocysts in about 6 week's time - Tobacco and ETOH cessation recommended 2. Urinary tract infection: Was started on Rocephin empirically. Urine cultures - positive for Enterobacter cloacae switched to cefepime 3. Chronic back pain: Follow up as outpatient. 4. History of portal vein thrombus: On Coumadin. INR supratherapeutic at 7.3 on admission. Received vitamin K. Now INR down to 1.3 Resumed coumadin. Monitor PT/INR 5. Ongoing tobacco abuse: Needs counseling. Nicotine patch applied DVT prophylaxis: warfarin DISPOSITION: Closely monitor in the medical floor. Admission and Anticipated Discharge Date Admission Date: July 28, 2021 Subjective Patient seen in follow-up of pancreatitis, UTI Currently patient is lying in bed, in no acute distress Denies any nausea vomiting diarrhea Reports abdominal discomfort, mainly in upper quadrants now much improved Denies fevers, chills chest pain shortness of breath She tolerated full liquid diet, will advance Review of Systems Review of Systems: All systems reviewed & are unremarkable except as noted in Subjective Physical Exam Physical Exam: GENERAL: WD/WN F, not in acute distress. HEENT: NC/AT. EOMI. Pupils equal, round and reactive to light. Oral mucosa dry. NECK: No JVD, no neck masses. CARDIOVASCULAR: S1 and S2 heard. Regular rate and rhythm. No murmur, no gallop. RESPIRATORY: Normal AP diameter. No accessory muscle use. No wheezing, no crackles. ABDOMEN: Soft, bowel sounds present, mildly tender to palpation in upper quadrants, no distention. NEURO:Alert and oriented X3, answers questions appropriately, speech fluent, no facial asymmetry, moves extremities. EXTREMITIES: No edema, no erythema. Results & Data Results & Data ([facility]) Vital Signs (Past 12 Hours) Vital Signs Temp Pulse Resp BP Pulse Ox 07/31/21 07:40 36.7 C 67 18 104/70 93 07/30/21 21:56 36.7 C 81 17 124/80 99 Laboratory Results 07/31/21 07/31/21 07/31/21 Range/Units 05:36 05:36 05:36 WBC 6.25 (4.8-10.8) K/uL RBC 4.13 L (4.2-5.4) M/uL Hgb 11.6 L (12.0-16.0) g/dL Hct 36.4 L (37-47) % MCV 88.1 (80-100) fL MCH 28.1 (25-34) pg MCHC 31.9 L (32-36) g/dL RDW Std Deviation 54.3 H (36.4-46.3) fL RDW Coeff of Yamile 16.7 H (11.5-14.5) % Plt Count 260 (130-400) K/uL MPV 10.8 H (7.4-10.4) fL PT 13.1 H (9.0-12.0) Seconds INR 1.2 H (0.9-1.1) Sodium 135 L (136-145) mmol/L Potassium 4.1 D (3.5-5.1) mmol/L Chloride 107 (98-107) mmol/L Carbon Dioxide 23 (21-32) mmol/L Anion Gap 5 (3-11) BUN 4 L (6-23) mg/dl Creatinine 0.48 L (0.6-1.2) mg/dl Est Cr Clr Drug Dosing 142.9 ml/min Est GFR ( Amer) 140.2 ml/min Est GFR (Non-Af Amer) 121.0 ml/min BUN/Creatinine Ratio 8.3 L (10-20) Glucose 90 (70-99(Fasting)) mg/dl Calcium 8.2 L (8.5-10.1) mg/dl Phosphorus 3.3 (2.5-4.9) mg/dl Magnesium 1.6 L (1.7-2.4) mg/dl Total Bilirubin 0.4 (0.2-1.0) mg/dl AST 10 L (13-39) U/L ALT 8 (7-52) U/L Alkaline Phosphatase 98 (34-104) U/L Total Protein 5.1 L (6.0-8.3) gm/dl Albumin 2.9 L (3.4-5.0) gm/dl Globulin 2.2 L (2.5-4.0) gm/dl Albumin/Globulin Ratio 1.3 (0.9-2) Medications Administered Current Inpatient Medications Acetaminophen (Acetaminophen 325 Mg Tab) 650 mg PO Q4H PRN PRN Reason: pain/fever Stop: 08/28/21 00:34 Hydromorphone HCl (Hydromorphone Inj 0.5 Mg/0.5 Ml Syr) 0.5 mg IV Q3H PRN PRN Reason: Pain Stop: 08/12/21 00:34 Last Admin: 07/31/21 00:39 Dose: 0.5 mg Documented by: Famotidine 20 mg/ Syringe 5 mls @ 2.5 mls/min IV BID [facility] Stop: 08/28/21 08:59 Last Admin: 07/30/21 20:24 Dose: 2.5 mls/min Documented by: Lactated Ringer's (Lr) 1,000 mls @ 150 mls/hr IV .Q6H40M [facility] Stop: 08/28/21 09:59 Last Admin: 07/31/21 02:12 Dose: 150 mls/hr Documented by: Cefepime HCl 2,000 mg/ Syringe 20 mls @ 5 mls/min IV Q12H [facility]; Protocol Stop: 08/09/21 13:59 Last Admin: 07/31/21 02:06 Dose: 5 mls/min Documented by: Magnesium Sulfate/Dextrose (Magnesium Sulfate / D5w) 1 gm in 100 mls @ 50 mls/hr IV ONE ONE Stop: 07/31/21 10:24 Miscellaneous (Remove Nicoderm Patch) 1 ea N/A DAILY@0859 [facility] Stop: 08/29/21 08:58 Last Admin: 07/30/21 08:40 Dose: 1 ea Documented by: Nicotine (Nicotine 14 Mg/24 Hr Patch) 14 mg TD QAM [facility] Stop: 08/28/21 16:44 Last Admin: 07/30/21 08:40 Dose: 14 mg Documented by: Ondansetron HCl (Ondansetron Inj 2 Mg/Ml 2 Ml Vial) 4 mg IV Q6H PRN PRN Reason: Nausea Stop: 08/28/21 00:34 Polyethylene Glycol (Polyethylene (Miralax) 17 Gm Pack) 17 gm PO DAILY PRN PRN Reason: Constipation Stop: 08/28/21 00:34 Warfarin Sodium (Warfarin Sod 5 Mg Tab) 5 mg PO SuMoWeFrSa@1600 [facility] Stop: 08/29/21 15:59 Last Admin: 07/30/21 16:01 Dose: 5 mg Documented by: Warfarin Sodium (Warfarin Sod 7.5 Mg Tab) 7.5 mg PO TuTh@1600 [facility] Stop: 09/01/21 15:59 (1) Leukocytosis Leukocytosis type: unspecified Qualified Code(s): D72.829 - Elevated white blood cell count, unspecified (2) Pancreatitis Acute pancreatitis complication: no infection or necrosis Chronicity: acute Pancreatitis type: unspecified pancreatitis type Qualified Code(s): K85.90 - Acute pancreatitis without necrosis or infection, unspecified (3) Abdominal pain Abdominal location: unspecified location Qualified Code(s): R10.9 - Unspecified abdominal pain
[2021-07-31] MEDS: NICOTINE 14 MG/24 HR PATCH TD SCH (09:17)
[2021-07-31] MEDS: FAMOTIDINE 20 MG in SYRINGE 3 ML IV SCH ×3 (09:22→20:06)
[2021-07-31] MEDS: LIDOCAINE 5% 1 PATCH TD SCH (16:33)
[2021-07-31] MEDS: WARFARIN SOD 5 MG TAB PO SCH (16:34)
[2021-08-01] MEDS: LACTATED RINGER'S 1,000 ML IV SCH ×2 (00:58→10:40)
[2021-08-01] MEDS: CEFEPIME 2,000 MG in SYRINGE 0 ML IV SCH ×2 (00:59→14:58)
[2021-08-01] MEDS: HYDROmorphone INJ 0.5 MG/0.5 ML SYR IV PRN ×3 (01:00→14:59)
[2021-08-01 06:29] LABS: Hematocrit (blood only) 32.3 % (37-47); Hemoglobin 10.7 g/dL (12.0-16.0); Mean Corpuscular Hemoglobin 28.2 pg (25-34); Mean Corpuscular Hgb Conc 33.1 g/dL (32-36); Mean Platelet Volume 10.2 fL (7.4-10.4); Platelet Count 342 K/uL (130-400); RDW Coefficient of Variation 16.6 % (11.5-14.5); RDW Standard Deviation 52.4 fL (36.4-46.3); White Blood Count 6.68 K/uL (4.8-10.8)
[2021-08-01 06:36] LABS: INR 1.4 (0.9-1.1)
[2021-08-01 07:10] LABS: Magnesium 1.7 mg/dl (1.7-2.4); Phosphorus 3.5 mg/dl (2.5-4.9)
[2021-08-01] MEDS: NICOTINE 14 MG/24 HR PATCH TD SCH (09:10)
[2021-08-01] MEDS: LIDOCAINE 5% 1 PATCH TD SCH (09:10)
[2021-08-01] MEDS: FAMOTIDINE 20 MG in SYRINGE 3 ML IV SCH (09:10)
--- NOTE | 2021-08-01 12:31 | Hospitalist Progress Note ---
Date of Service August 01, 2021 Assessment & Plan (1) Pancreatitis: (2) Abdominal pain: (3) Leukocytosis: (4) Elevated INR: (5) Acute UTI: (6) Portal vein thrombosis: Plan: This is a 41-year-old female who presents with abdominal pain due to pancreatitis 1. Abdominal pain: Recurrent pancreatitis. Lipase elevated at [address] abd[address] pelvis IMPRESSION: 1. Peripancreatic inflammatory change/edema with a small amount of ascites and 2 peripancreatic pseudocysts as described above. This consistent with acute pancreatitis. 2. Narrowed but patent main portal vein and splenic veins. 3. Moderate gastric wall thickening along the lesser curvature. This is likely reactive to the pancreatitis. 4. Questionable thickening along the transverse colon and descending colon which is likely due to underdistention or reactive to the pancreatitis. 5. Additional findings as described above. Cont. w/IV fluids with LR at 100 mL per hour, IV Dilaudid p.r.n., IV Pepcid for possible gastritis. tolerated clear liquids, advance to full liquid diet Monitor in the medical floor. GI consulted - Upon DC should have GI f/u and repeat CT to eval for resolution of pseudocysts in about 6 week's time - Tobacco and ETOH cessation recommended 2. Urinary tract infection: Was started on Rocephin empirically. Urine cultures - positive for Enterobacter cloacae switched to cefepime pt denies any symptoms finished treatment 3. Chronic back pain: Follow up as outpatient. 4. History of portal vein thrombus: On Coumadin. INR supratherapeutic at 7.3 on admission. Received vitamin K. Now INR down to 1.3 Resumed coumadin. Monitor PT/INR 5. Ongoing tobacco abuse: Needs counseling. Nicotine patch applied DVT prophylaxis: warfarin DISPOSITION: Plan to [place] home Admission and Anticipated Discharge Date Admission Date: July 28, 2021 Subjective Patient seen in follow-up of pancreatitis, UTI Currently patient is lying in bed, in no acute distress Denies any nausea vomiting diarrhea Reports abdominal discomfort, mainly in upper quadrants now much improved/resolved Denies fevers, chills chest pain shortness of breath She tolerates diet Review of Systems Review of Systems: All systems reviewed & are unremarkable except as noted in Subjective Physical Exam Physical Exam: GENERAL: WD/WN F, not in acute distress. HEENT: NC/AT. EOMI. Pupils equal, round and reactive to light. Oral mucosa dry. NECK: No JVD, no neck masses. CARDIOVASCULAR: S1 and S2 heard. Regular rate and rhythm. No murmur, no gallop. RESPIRATORY: Normal AP diameter. No accessory muscle use. No wheezing, no crackles. ABDOMEN: Soft, bowel sounds present, mildly tender to palpation in upper quadrants (improved), no distention. NEURO:Alert and oriented X3, answers questions appropriately, speech fluent, no facial asymmetry, moves extremities. EXTREMITIES: No edema, no erythema. Results & Data Results & Data ([facility]) Vital Signs (Past 12 Hours) Vital Signs Temp Pulse Resp BP Pulse Ox 08/01/21 07:37 36.4 C L 60 18 111/74 92 Laboratory Results 08/01/21 08/01/21 08/01/21 Range/Units 06:00 06:00 06:00 WBC 6.68 (4.8-10.8) K/uL RBC 3.80 L (4.2-5.4) M/uL Hgb 10.7 L (12.0-16.0) g/dL Hct 32.3 L (37-47) % MCV 85.0 (80-100) fL MCH 28.2 (25-34) pg MCHC 33.1 (32-36) g/dL RDW Std Deviation 52.4 H (36.4-46.3) fL RDW Coeff of Yamile 16.6 H (11.5-14.5) % Plt Count 342 (130-400) K/uL MPV 10.2 (7.4-10.4) fL PT 15.0 H (9.0-12.0) Seconds INR 1.4 H (0.9-1.1) Phosphorus 3.5 (2.5-4.9) mg/dl Magnesium 1.7 (1.7-2.4) mg/dl Medications Administered Current Inpatient Medications Acetaminophen (Acetaminophen 325 Mg Tab) 650 mg PO Q4H PRN PRN Reason: pain/fever Stop: 08/28/21 00:34 Hydromorphone HCl (Hydromorphone Inj 0.5 Mg/0.5 Ml Syr) 0.5 mg IV Q3H PRN PRN Reason: Pain Stop: 08/12/21 00:34 Last Admin: 08/01/21 09:09 Dose: 0.5 mg Documented by: Famotidine 20 mg/ Syringe 5 mls @ 2.5 mls/min IV BID [facility] Stop: 08/28/21 08:59 Last Admin: 08/01/21 09:10 Dose: 2.5 mls/min Documented by: Lactated Ringer's (Lr) 1,000 mls @ 100 mls/hr IV .Q10H [facility] Stop: 08/28/21 09:59 Last Admin: 08/01/21 10:40 Dose: 100 mls/hr Documented by: Cefepime HCl 2,000 mg/ Syringe 20 mls @ 5 mls/min IV Q12H [facility]; Protocol Stop: 08/09/21 13:59 Last Admin: 08/01/21 00:59 Dose: 5 mls/min Documented by: Magnesium Sulfate/Dextrose (Magnesium Sulfate / D5w) 1 gm in 100 mls @ 50 mls/hr IV ONE ONE Stop: 08/01/21 14:34 Last Admin: 08/01/21 12:48 Dose: 50 mls/hr Documented by: Lidocaine (Lidocaine 5% 1 Patch) 1 patch TD QAM [facility] Stop: 08/30/21 13:44 Last Admin: 08/01/21 09:10 Dose: 1 patch Documented by: Miscellaneous (Remove Nicoderm Patch) 1 ea N/A DAILY@0859 [facility] Stop: 08/29/21 08:58 Last Admin: 08/01/21 09:11 Dose: 1 ea Documented by: Miscellaneous (Remove Lidoderm Patch) 1 ea N/A DAILY@2100 [facility] Stop: 08/30/21 20:59 Last Admin: 07/31/21 20:09 Dose: 1 ea Documented by: Nicotine (Nicotine 14 Mg/24 Hr Patch) 14 mg TD QAM [facility] Stop: 08/28/21 16:44 Last Admin: 08/01/21 09:10 Dose: 14 mg Documented by: Ondansetron HCl (Ondansetron Inj 2 Mg/Ml 2 Ml Vial) 4 mg IV Q6H PRN PRN Reason: Nausea Stop: 08/28/21 00:34 Polyethylene Glycol (Polyethylene (Miralax) 17 Gm Pack) 17 gm PO DAILY PRN PRN Reason: Constipation Stop: 08/28/21 00:34 Warfarin Sodium (Warfarin Sod 5 Mg Tab) 5 mg PO SuMoWeFrSa@1600 [facility] Stop: 08/29/21 15:59 Last Admin: 07/31/21 16:34 Dose: 5 mg Documented by: Warfarin Sodium (Warfarin Sod 7.5 Mg Tab) 7.5 mg PO TuTh@1600 [facility] Stop: 09/01/21 15:59 (1) Leukocytosis Leukocytosis type: unspecified Qualified Code(s): D72.829 - Elevated white blood cell count, unspecified (2) Pancreatitis Acute pancreatitis complication: no infection or necrosis Chronicity: acute Pancreatitis type: unspecified pancreatitis type Qualified Code(s): K85.90 - Acute pancreatitis without necrosis or infection, unspecified (3) Abdominal pain Abdominal location: unspecified location Qualified Code(s): R10.9 - Unspecified abdominal pain
[2021-08-01] MEDS ORDERED: MAGNESIUM SULFATE / D5W 1 GM/100 ML BAG IV ONE (12:35)
--- NOTE | 2021-08-01 13:00 | Discharge Summary ---
Date of Service August 01, 2021 Admission HPI Per Admitting Provider This is a 40-year-old female with past medical history significant for pancreatitis, portal vein thrombosis, tobacco use disorder, history of alcoholism, presents with abdominal pain. The patient was recently diagnosed with acute pancreatitis in end of January. The patient states since then she is not drinking any alcohol. She also underwent an upper endoscopic ultrasound and 7 cm pseudocyst was found. A cystogastrostomy was performed using a 10 mm stent. The patient says she is supposed to get stent taken out in the coming week and she also was recently found to have portal vein thrombosis and she was advised to start Coumadin, but the patient has not got the medication yet and today comes back because she is having severe about 6/10 abdominal pain in the right side of the abdomen. Currently after pain medication, the pain is better. Denies any diarrhea or constipation. No blood in stools or black stools. Normal bladder movements. No nausea, no vomiting, no chest pain, no shortness of breath, no cough, no headache, no blurred visions, no earache, no runny nose, no fevers. Currently, resting comfortably and hemodynamically stable. Lipase was elevated. Admission Exam Per Admitting Provider GENERAL: The patient is of moderate build, not in acute distress. VITAL SIGNS: Temperature 36.8, pulse 87, respiratory rate 16, blood pressure 101/67, oxygen 98% on room air. HEENT: Pupils equal, round and reactive to light. Oral mucosa moist. NECK: No JVD, no neck masses. CARDIOVASCULAR: S1 and S2 heard. Regular rate and rhythm. No murmur, no gallop. RESPIRATORY: Normal AP diameter. No accessory muscle use. No wheezing, no crackles. ABDOMEN: Soft, bowel sounds sluggish. Tenderness in the right upper and lower quadrant. Mild guarding, no rigidity. No distention. CENTRAL NERVOUS SYSTEM: Cranial nerves II through XII are grossly intact, nonfocal. EXTREMITIES: No edema, no erythema. Principal Diagnosis Recurrent pancreatitis Pancreatic cysts UTI Discharge Exam GENERAL: WD/WN F, not in acute distress. HEENT: NC/AT. EOMI. Pupils equal, round and reactive to light. Oral mucosa dry. NECK: No JVD, no neck masses. CARDIOVASCULAR: S1 and S2 heard. Regular rate and rhythm. No murmur, no gallop. RESPIRATORY: Normal AP diameter. No accessory muscle use. No wheezing, no crackles. ABDOMEN: Soft, bowel sounds present, mildly tender to palpation in upper quadrants (improved), no distention. NEURO:Alert and oriented X3, answers questions appropriately, speech fluent, no facial asymmetry, moves extremities. EXTREMITIES: No edema, no erythema. Discharge Data Allergies Allergy/AdvReac Type Severity Reaction Status Date / Time pollen extracts Allergy Intermediate SEASONAL-IT Verified 07/28/21 21:26 KATE Consultations 07/28/21 22:42 ED Decision to Admit Stat 07/29/21 08:00 Consult Gastroenterology Routine Ordered Studies 07/28/21 20:44 CT abd pelvis IV con only Urgent IMPRESSION: 1. Peripancreatic inflammatory change/edema with a small amount of ascites and 2 peripancreatic pseudocysts as described above. This consistent with acute pancreatitis. 2. Narrowed but patent main portal vein and splenic veins. 3. Moderate gastric wall thickening along the lesser curvature. This is likely reactive to the pancreatitis. 4. Questionable thickening along the transverse colon and descending colon which is likely due to underdistention or reactive to the pancreatitis. 5. Additional findings as described above. Hospital Course (1) Pancreatitis: (2) Abdominal pain: (3) Leukocytosis: (4) Elevated INR: (5) Acute UTI: (6) Portal vein thrombosis: This is a 41-year-old female who presents with abdominal pain due to pancreatitis 1. Abdominal pain: Recurrent pancreatitis. Lipase elevated at 962 CT abd. pelvis IMPRESSION: 1. Peripancreatic inflammatory change/edema with a small amount of ascites and 2 peripancreatic pseudocysts as described above. This consistent with acute pancreatitis. 2. Narrowed but patent main portal vein and splenic veins. 3. Moderate gastric wall thickening along the lesser curvature. This is likely reactive to the pancreatitis. 4. Questionable thickening along the transverse colon and descending colon which is likely due to underdistention or reactive to the pancreatitis. 5. Additional findings as described above. Cont. w/IV fluids with LR at 100 mL per hour, IV Dilaudid p.r.n., IV Pepcid for possible gastritis. tolerated clear liquids, advance to full liquid diet Monitor in the medical floor. GI consulted - Upon DC should have GI f/u and repeat CT to eval for resolution of pseudocysts in about 6 week's time - Tobacco and ETOH cessation recommended Clinically much improved, patient tolerates diet 2. Urinary tract infection: Was started on Rocephin empirically. Urine cultures - positive for Enterobacter cloacae switched to cefepime pt denies any symptoms finished treatment 3. Chronic back pain: Follow up as outpatient. 4. History of portal vein thrombus: On Coumadin. INR supratherapeutic at 7.3 on admission. Received vitamin K. Now INR down to 1.3 Resumed coumadin. Monitor PT/INR 5. Ongoing tobacco abuse: Provided counseling. Nicotine patch applied Total Time Total Time Spent Total Time Spent (In Minutes): 40 Discharge Plan Discharge Items Patient Disposition: Home - Self-Care Reason For Visit: ABDOMINAL PAIN Discharge Diagnosis: Recurrent pancreatitis Pancreatic cysts UTI Activity: Per Instructions section Non-emergency contact: Primary Care Provider Call non-emergency contact if: you have any medication questions and your symptoms worsen Follow-up/Referrals: Evette Velázquez PA-C [Primary Care Provider] - (Date & Time 08/03/2021 8:00 AM Provider Linda Echeverria MD Department Family Medicine [facility] ) Diet: Low Fiber and Low Fat Addtl Attending Provider Instructions: Follow-up with your primary care doctor, the appointment was scheduled for you for August 03. You also need to follow-up with gastroenterology, and have a CT scan done to follow-up on your pancreatic cysts in 6 weeks. Make sure to stay well-hydrated, and avoid any heavier/fatty foods as that can exacerbate your abdominal pain from pancreatitis. Strongly recommend to completely abstain from alcohol. Also recommend smoking cessation. Consider calling 1 [employer] smoking cessation line. Have your INR checked at your earliest convenience and have your warfarin dose adjusted appropriately. Pending Studies at Discharge: No Stand-Alone Forms: My [facility] [employer], Opioid Pain Management, Work/School Release, Smoking Cessation Medications and DC Order Prescriptions: New oxycodone 5 mg tablet 5 mg PO BID PRN (Reason: pain) Qty: 7 RF: 0 nicotine 14 mg/24 hr patch 24 hour 1 patch transdermal DAILY Qty: 7 RF: 0 Continued Mirena 20 mcg/24 hours (7 yrs) 52 mg intrauterine device 1 insert INTRAUTERINE CONTINOUS RF: 0 warfarin 5 mg tablet See Rx Instructions .ROUTE .COMPLEX RF: 0 Discharge Orders: Discharge Order (Routine); Ordered 08/01/21 Ordered By: Ulises Davis/Other Patient Handouts: Oxycodone Oral Tablet 5 mg, What to Know When TakingWarfarin Admission Data Admit Date/Time: 07/28/21 23:34 Attending Provider: Ulises Herrera Admit Provider: Andrae Dorantes Primary Care Provider: Evette Velázquez Other Providers: Andrae Dorantes ; Jaqueline Katz ; Eladia Orosco ; Laura Newberry ; Zari Taylor ; Thom Frazier ; Dre Paez ; Dominga Kaiser ; Vitaly Grajeda ; Leslee Arellano ; Cortney Gutierrez ; Arianna Cain ; Kellie Trevino ; Sheela Sommers ; Daquan Salmon
[2021-08-01] MEDS: WARFARIN SOD 5 MG TAB PO SCH (15:00)
[2021-08-02] MEDS ORDERED: WARFARIN SOD 7.5 MG TAB PO SCH (16:00)
== END 2021-08-01 17:13 | disposition home or self-care (01) | DRG 438 ==
LOC: ED 18:30 → 3W 23:34 → SUATTDRO 23:34 → 3W 07-29 00:37